=== PATIENT | male | born 1970 | race Caucasian/White ===

== ENCOUNTER → 2016-06-02 | Outpatient (CLI) | payer OTHER ==
[~2016-06-02] MED LIST: ALBU18002 INH; ASPI81TA28 PO; ASPI81TA57 PO; ATOR-26 PO; CITA20TA9 PO; FURO-85 PO; ISOS30TA35 PO; ISOS60TA25 PO; LISI10TA PO; METO50TA17 PO; NTRGSL/4 UT; OXYC-57 PO; PLV75 PO
[2016-06-02 13:06] LABS: HEMATOCRIT 41.9 % (42-52); MEAN CELL VOLUME 87.5 fL (80-100); MEAN CORPUSCULAR HEMOGLOBIN 30.7 pg (25-34); MEAN CORPUSCULAR HGB CONC 35.1 g/dl (32-36); MEAN PLATELET VOLUME 11.6 fL (7.4-10.4); PLATELET COUNT 200 K/uL (130-400); RED BLOOD COUNT 4.79 M/uL (4.7-6.1); WHITE BLOOD COUNT 9.99 K/uL (4.8-10.8)
[2016-06-02 13:20] LABS: PROTHROMBIN TIME (PATIENT) 10.6 SECONDS (9.0-12.0)
[2016-06-02 13:57] LABS: BLOOD UREA NITROGEN 16 mg/dl (7-18); BUN/CREATININE RATIO 16.6 (10-20); CALCIUM 8.8 mg/dl (8.5-10.1); CARBON DIOXIDE 25 mmol/L (21-32); CHLORIDE 106 mmol/L (98-107); CREATININE 0.94 mg/dl (0.60-1.40); GLUCOSE 104 mg/dl (70-99); POTASSIUM 3.5 mmol/L (3.5-5.1); SODIUM 142 mmol/L (136-145)
== END | disposition home or self-care (01) ==
LOC: C.LAB1850 11:43
PROVIDERS: ATTEND Internal Medicine Cardiovascular Disease
DX: R07.9 Chest pain, unspecified (principal); I10 Essential (primary) hypertension; I25.10 Atherosclerotic heart disease of native coronary artery without angina pectoris

== ENCOUNTER 2016-06-07 04:44 | Observation (INO) | payer OTHER ==
[~2016-06-07] VITALS: Ht 172.7 cm; Wt 98.9 kg
[~2016-06-07 04:44] MED LIST changes: -ASPI81TA28 PO; -ISOS60TA25 PO
[2016-06-07] MEDS ORDERED: SODIUM CHLORIDE 0.9% 500ML 500 ML IV STA (05:01)
[2016-06-07] MEDS ORDERED: ONDANSETRON INJ 2 MG/ML 2 ML VIAL IV STA (05:01)
[2016-06-07] MEDS ORDERED: MoRPHine SULFATE 4 MG/ML 1 ML CARP\\VIAL IV STA (05:01)
[2016-06-07] MEDS ORDERED: OPTIRAY 320 IV PRN (05:15)
[2016-06-07 05:18] LABS: BASO % 0.6 %; BASO ABS # 0.05 K/uL (0-0.2); COMPLETE YES; EOS % 3.3 %; HEMATOCRIT 43.3 % (42-52); IG% 0.1 %; LYMPH % 45.4 %; LYMPH ABS # 3.97 K/uL (1.2-3.4); MEAN CELL VOLUME 88.4 fL (80-100); MEAN CORPUSCULAR HEMOGLOBIN 31.2 pg (25-34); MEAN CORPUSCULAR HGB CONC 35.3 g/dl (32-36); MEAN PLATELET VOLUME 11.7 fL (7.4-10.4); MONO % 10.7 %; NEUT % 39.9 %; PLATELET COUNT 173 K/uL (130-400); WHITE BLOOD COUNT 8.75 K/uL (4.8-10.8)
[2016-06-07 05:30] LABS: INR 0.9 (0.9-1.1); PROTHROMBIN TIME (PATIENT) 9.8 SECONDS (9.0-12.0)
[2016-06-07 05:49] LABS: BUN/CREATININE RATIO 14.7 (10-20); CALCIUM 8.8 mg/dl (8.5-10.1); CREATININE 1.2 mg/dl (0.60-1.40); POTASSIUM 3.6 mmol/L (3.5-5.1)
[2016-06-07 05:54] LABS: CKMB/CK RATIO 2.5 (0-3.0)
[2016-06-07] MEDS ORDERED: LORAZEPAM 2 MG/ML 1 ML VIAL IV STA (05:54)
[2016-06-07] MEDS ORDERED: ASPI81TA28 PO (06:10)
[2016-06-07] MEDS ORDERED: ISOS60TA25 PO (06:12)
--- NOTE | 2016-06-07 06:27 | EMERGENCY ROOM VISIT NOTE ---
History First contact with patient: 04:50 Chief Complaint: CARDIAC ASSESSMENT Stated Complaint: CHEST TIGHTNESS Nursing Triage Summary: arrived via amb with als pt has hx of mi had recent stress testand is to have a cardiac cath on here at [facility]. pt awoke 2 hrs ago ith midsternal cp. History of Present Illness The patient is a 46 year old male who presents to the Emergency Room with complaints of mid to left-sided chest pain that radiates to his back with mild source of breath for the past 2 hours. Patient had an abnormal stress test last week by Dr. Da Silva and has a scheduled cardiac catheterization tomorrow on the . He does had no heart disease. Here he has a stent from 2013 from [facility]. Patient does have high blood pressure and cholesterol. He does not smoke. No diabetes. Patient took nitroglycerin glycerin and aspirin with no improvement of symptoms. Morphine from EMS did help out. Patient currently complains of minimal pain, 3 out of 10. Nothing makes it better or worse. He had shoulder surgery 2 months ago. Patient denies numbness, tingling, diaphoresis, abdominal pain, leg pain or swelling. No history of DVT or PE. Review of Systems See HPI for pertinent positives & negatives. A total of 10 systems reviewed and were otherwise negative. Past Medical/Surgical History Medical Problems: (1) Asthma (2) HTN (hypertension) (3) Hx of coronary artery disease (4) Myocardial infarction (5) NSTEMI (non-ST elevated myocardial infarction) (6) paralyzed left ankle (7) PUD (peptic ulcer disease) (8) Tobacco abuse Surgical Problems: (1) H/O cardiac catheterization (2) H/O placement of stent in anterior descending branch of left coronary artery (3) S/P appendectomy (4) S/P surgical manipulation of ankle joint (5) S/P tonsillectomy Family History Cancer Gallbladder disease Heart disease Hypertension Social History Smoking Status: Never Smoker Smokeless Tobacco Use: No Drug Use: none Marital Status: Housing Status: lives with family Occupation Status: employed Current/Historical Medications Scheduled Aspirin (Aspirin Ec), 81 MG PO DAILY Atorvastatin (Lipitor), 80 MG PO QPM Citalopram Hydrobromide (Celexa), 20 MG PO QAM Clopidogrel Bisulfate (Clopidogrel), 75 MG PO QAM Furosemide (Lasix), 20 MG PO DAILY Isosorbide Mononitrate Ext Rel (Imdur Ext Rel), 60 MG PO QAM Lisinopril (Prinivil), 10 MG PO QAM Metoprolol Tartrate (Metoprolol Tartrate), 50 MG PO BID Scheduled PRN Albuterol Sulfate (Proair Respiclick), 2 PUFFS INH QID PRN for SOB/Wheezing Nitroglycerin (Nitrostat), 0.4 MG UT UD PRN for Chest Pain Oxycodone/Acetaminophen 5MG/325MG (Percocet 5MG/325MG), 1-2 TABLETS PO Q6 PRN for Pain Allergies Coded Allergies: No Known Allergies (Unverified , 06/07/16) Physical Exam Vital Signs Date Time Temp Pulse Resp B/P Pulse Ox O2 Delivery O2 Flow Rate FiO2 06/07/16 06:29 71 20 113/60 98 Nasal Cannula 2.0 06/07/16 06:00 78 18 151/99 97 Nasal Cannula 2.0 06/07/16 05:21 70 18 122/77 97 Nasal Cannula 2.0 06/07/16 05:01 100 Nasal Cannula 2.0 06/07/16 04:57 87 06/07/16 04:53 100 Room Air 06/07/16 04:53 37.4 89 18 125/79 100 Room Air 06/07/16 04:53 100 Room Air Physical Exam VITALS: Vitals are noted on the nurse's note and reviewed by myself. Vital signs stable. GENERAL: Pleasant male mildly anxious-appearing, in no acute distress, nondiaphoretic, well-developed well-nourished. SKIN: The skin was without rashes, erythema, edema, or bruising. There is no tenting of the skin. Capillary reflex less than 2 seconds. HEAD: Normocephalic atraumatic. EARS: External auditory canals clear, tympanic membranes pearly olson without erythema or effusion bilaterally. EYES: Pupils equal round and reactive to light and accommodation. Conjunctivae without injection, sclerae without icterus. Extraocular movements intact. NOSE: Patent, turbinates without inflammation or discharge. MOUTH: Mucous membranes moist. Pharynx without erythema or exudate. Uvula midline. Airway patent. Tongue does not deviate. NECK: Supple without nuchal rigidity. No lymphadenopathy. No thyromegaly. Cervical spine is nontender. No JVD. HEART: Regular rate and rhythm without murmurs gallops or rubs. Chest nontender to palpation LUNGS: Clear to auscultation bilaterally without wheezes, rales or rhonchi. No dullness to percussion. No retractions or accessory muscle use. ABDOMEN: Positive bowel sounds x 4. Normal tympanic percussion. Soft, protuberant, obese, nontender, without masses or organomegaly. Mac sign negative. No guarding or rebound tenderness. MUSCULOSKELETAL: No muscle atrophy, erythema, or edema noted. NEURO: Patient was alert and oriented to person place and time. Normal sensation to light and sharp touch. No focal neurological deficits. Medical Decision & Procedures Laboratory Results 06/07/16 04:10 Red Blood Count 4.90, Mean Corpuscular Volume 88.4, Mean Corpuscular Hemoglobin 31.2, Mean Corpuscular Hemoglobin Concent 35.3, Mean Platelet Volume 11.7, Neutrophils (%) (Auto) 39.9, Lymphocytes (%) (Auto) 45.4, Monocytes (%) (Auto) 10.7, Eosinophils (%) (Auto) 3.3, Basophils (%) (Auto) 0.6, Neutrophils # (Auto ) 3.49, Lymphocytes # (Auto) 3.97, Monocytes # (Auto) 0.94, Eosinophils # (Auto ) 0.29, Basophils # (Auto) 0.05 06/07/16 04:10 Test 06/07/16 04:10 06/07/16 05:09 White Blood Count 8.75 K/uL (4.8-10.8) Red Blood Count 4.90 M/uL (4.7-6.1) Hemoglobin 15.3 g/dL (14.0-18.0) Hematocrit 43.3 % (42-52) Mean Corpuscular Volume 88.4 fL (80-100) Mean Corpuscular Hemoglobin 31.2 pg (25-34) Mean Corpuscular Hemoglobin Concent 35.3 g/dl (32-36) Platelet Count 173 K/uL (130-400) Mean Platelet Volume 11.7 fL (7.4-10.4) Neutrophils (%) (Auto) 39.9 % Lymphocytes (%) (Auto) 45.4 % Monocytes (%) (Auto) 10.7 % Eosinophils (%) (Auto) 3.3 % Basophils (%) (Auto) 0.6 % Neutrophils # (Auto) 3.49 K/uL (1.4-6.5) Lymphocytes # (Auto) 3.97 K/uL (1.2-3.4) Monocytes # (Auto) 0.94 K/uL (0.11-0.59) Eosinophils # (Auto) 0.29 K/uL (0-0.5) Basophils # (Auto) 0.05 K/uL (0-0.2) RDW Standard Deviation 41.6 fL (36.4-46.3) RDW Coefficient of Variation 13.0 % (11.5-14.5) Immature Granulocyte % (Auto) 0.1 % Immature Granulocyte # (Auto) 0.01 K/uL (0.00-0.02) Prothrombin Time 9.8 SECONDS (9.0-12.0) Prothromb Time International Ratio 0.9 (0.9-1.1) Activated Partial Thromboplast Time 25.4 SECONDS (21.0-31.0) Partial Thromboplastin Ratio 1.0 Anion Gap 8.0 mmol/L (3-11) Est Creatinine Clear Calc Drug Dose 93.5 ml/min Estimated GFR () 83.0 Estimated GFR (Non- 71.6 BUN/Creatinine Ratio 14.7 (10-20) Calcium Level 8.8 mg/dl (8.5-10.1) Total Bilirubin 0.8 mg/dl (0.2-1) Direct Bilirubin 0.1 mg/dl (0-0.2) Aspartate Amino Transf (AST/SGOT) 19 U/L (15-37) Alanine Aminotransferase (ALT/SGPT) 55 U/L (12-78) Alkaline Phosphatase 99 U/L (45-117) Total Creatine Kinase 102 U/L (39-308) Creatine Kinase MB 2.6 ng/ml (0.5-3.6) Creatine Kinase MB Ratio 2.5 (0-3.0) Total Protein 7.1 gm/dl (6.4-8.2) Albumin 3.8 gm/dl (3.4-5.0) Lipase 109 U/L (73-393) Bedside Troponin I 0.000 ng/ml (0-0.045) Medications Administered Medications (Trade) Dose Ordered Sig/Michael Route Start Time Stop Time Status Last Admin Dose Admin Morphine Sulfate (MoRPHine SULFATE INJ) 4 mg NOW STAT IV 06/07/16 05:01 06/07/16 05:02 DC 06/07/16 05:16 4 MG Ondansetron HCl 4 mg 4 mg NOW STAT IV 06/07/16 05:01 06/07/16 05:03 DC 06/07/16 05:16 4 MG Sodium Chloride (Nss 500ml) 500 ml @ 999 mls/hr Q31M STAT IV 06/07/16 05:01 06/07/16 05:31 DC 06/07/16 05:16 999 MLS/HR Lorazepam (Ativan Inj) 1 mg NOW STAT IV 06/07/16 05:54 06/07/16 05:55 DC 06/07/16 05:57 1 MG ED Course Prior records/ancillary studies reviewed. Triage Nursing notes reviewed. Additional history obtained from family and EMS. The patient's history was concerning for chest pain. Differential diagnosis: Etiologies such as cardiac ischemia, aortic dissection, pulmonary embolism, pneumonia, pneumothorax, musculoskeletal, infections, pericarditis, myocarditis , esophageal rupture, gastrointestinal, as well as others were entertained. Physical examination: As above. ER treatment provided: Morphine, Zofran. Patient was are given aspirin and nitroglycerin by EMS On reassessment the patient felt better. Diagnostic interpretation by me: The electrocardiogram was negative for pathologic change. Normal sinus, normal intervals, no acute ST-T wave changes. Impression normal sinus rhythm interpreted by myself The labs revealed negative troponin. Mild hyperglycemia without DKA Imaging studies: Chest x-ray with no acute consolidation or pneumothorax per my interpretation CTA CHEST: No evidence of pulmonary embolus. No thoracic aortic dissection or aneurysm. Dependent atelectasis. No pleural effusion or pneumothorax. Coronary artery calcifications. Trace pericardial effusion. No acute osseous abnormality. The visualized upper abdomen is unremarkable. Radiologist: Mick Coley MD Consultation: A consultation was placed with the [facility] hospitalist, Dr Boudreaux. The case was discussed and diagnostics were reviewed. The patient was evaluated in the ER for further treatment. Exam and history seem consistent with chest pain possibly cardiac in etiology. Patient had an abnormal stress test last week. He will be evaluated by medicine for possible admission. He had a normal EKG. Unremarkable workup as above. By the evaluation outlined above emergent etiologies such as aortic dissection , pulmonary embolism, pneumonia, pneumothorax, infections, pericarditis, myocarditis, gastrointestinal, as well as others were deemed relatively unlikely. The pt informed about the findings as listed above. All questions were answered and pleased with the treatment. Case reviewed with my attending. Medical Decision As above Impression Primary Impression: Precordial chest pain Departure Information Dispostion Being Evaluated By Hospitalist Condition GOOD Referrals Latisha Garcia MD (PCP) Patient Instructions My [facility]
--- NOTE | 2016-06-07 07:57 | DIAGNOSTIC IMAGING REPORT ---
CT ANGIOGRAM OF THE CHEST CLINICAL HISTORY: Atypical chest pain. Dyspnea. COMPARISON STUDY: Chest x-ray dated 06/07/2016. Chest CT dated 08/18/2009. TECHNIQUE: Following the IV administration of 92 cc of Optiray 320, CT angiogram of the chest was performed from the upper abdomen to the thoracic inlet utilizing the pulmonary embolus protocol. Images are reviewed in the axial, sagittal, and coronal planes. 3-D MIPS images are created and assessed. IV contrast was administered without complication. CT DOSE: 724.94 mGy.cm FINDINGS: Thyroid: Imaged portions of the thyroid gland are normal in size and attenuation. Thoracic aorta: The thoracic aorta is normal in caliber and demonstrates standard 3-vessel arch anatomy. No dissection is seen. Pulmonary vasculature: The pulmonary trunk is normal in caliber. There are no filling defects identified in main, lobar, or segmental pulmonary branches to suggest pulmonary embolus. Heart: The heart is top normal in size and there is trace pericardial fluid. The coronary arteries are densely calcified. Lungs and pleural spaces: Evaluation of the lung parenchyma is modestly degraded by expiratory motion artifact. There is no airspace consolidation or pleural effusion. Dependent atelectasis is observed. A calcified granuloma is present in the right lower lobe. A 3 mm perifissural nodule in the right lower lobe seen on image #155 is unchanged from 2010 and of doubtful significance. No concerning pulmonary lesion is seen. The trachea and central airways are clear. Mediastinum: There is no mediastinal lymphadenopathy. Raquel: Clear. Axillae: There is no axillary lymphadenopathy. Upper abdomen: There is evidence of hepatic steatosis. A tiny hiatal hernia is identified. Partially visualized upper abdominal viscera is otherwise within normal limits. Skeletal structures: No lytic or blastic bony lesions are seen. IMPRESSION: 1. There is no evidence of pulmonary embolus in the main, lobar, or segmental pulmonary arteries. 2. The lungs are clear. 3. The heart is top normal in size. The coronary arteries are densely calcified, greater than expected for age. Consider nonemergent cardiology follow-up. Electronically signed by: Ethan Gentile M.D. 06/07/2016 7:55 AM Dictated Date/Time: 06/07/2016 7:51 AM
--- NOTE | 2016-06-07 08:02 | DIAGNOSTIC IMAGING REPORT ---
SINGLE VIEW CHEST CLINICAL HISTORY: Atypical chest pain. Dyspnea. FINDINGS: An AP, portable, upright chest radiograph is compared to study dated 03/27/2016 and correlated with chest CT dated 08/18/2009. The examination is degraded by portable technique, apical and out of positioning, and patient rotation. The heart is top normal for projection. The mediastinal contour is within normal limits. There is mild elevation of the right hemidiaphragm. The lungs and pleural spaces are clear. No pneumothorax is seen. The bony thorax is grossly intact. IMPRESSION: No active disease in the chest. Electronically signed by: Ethan Gentile M.D. 06/07/2016 8:01 AM Dictated Date/Time: 06/07/2016 8:00 AM
--- NOTE | 2016-06-07 08:11 | History and Physical ---
History & Physical Date & Time of Service: Jun 07, 2016 at 08:04 Chief Complaint: Chest Tightness Primary Care Physician: Latisha Garcia MD History of Present Illness Mr. Zhao is a 46 yo M with pmh CAD, OR in 2013 s/p CHOLO to LAD (last cath in 2015, no intervention done) HTN, obesity, former smoker, dyslipidemia who presents with chest pain. He reports chest pain woke him up from sleep, 8/10, sometimes sharp, sometimes dull, radiates to the back and to his throat somewhat reminiscent to his prior OR. Episode was associated with lightheadedness, and SOB, lasted for a few hours. He took nitro without improvement and prompted the visit to the ED. He was given nitro and morphine en route to the ED which partially relieved the chest pain and resolved completely after ativan was given. Patient follows with Dr. Da Silva and recently had stress test which was positive. He was scheduled for a cath tomorrow 06/08. He is currently chest pain free, sob is improved, no abd pain, no urinary symptoms. He does have left shoulder pain which is chronic. Past Medical/Surgical History Medical Problems: (1) Asthma Status: Chronic (2) HTN (hypertension) Status: Chronic (3) Hx of coronary artery disease Status: Chronic (4) NSTEMI (non-ST elevated myocardial infarction) Permanent Comment: S/P LAD stent 2012 Status: Chronic (5) paralyzed left ankle Status: Chronic (6) PUD (peptic ulcer disease) Status: Chronic (7) Tobacco abuse Status: Chronic Surgical Problems: (1) H/O cardiac catheterization Permanent Comment: 90% prox LAD s/p stent; normal LV function Status: Chronic (2) S/P appendectomy Status: Chronic (3) S/P surgical manipulation of ankle joint Status: Chronic (4) S/P tonsillectomy Status: Chronic Hyperlipidemia Obesity Former Smoker--quit 3 years ago Recent Left shoulder surgery Family History Cancer Gallbladder disease Heart disease Hypertension Social History Smoking Status: Former Smoker Smokeless Tobacco Use: No Alcohol Use: occasionally Drug Use: none Marital Status: Occupational Status: employed Allergies Coded Allergies: No Known Allergies (Unverified , 06/07/16) Home Medications Scheduled Aspirin (Aspirin Ec), 81 MG PO DAILY Atorvastatin (Lipitor), 80 MG PO QPM Clopidogrel Bisulfate (Clopidogrel), 75 MG PO QAM Furosemide (Lasix), 20 MG PO DAILY Isosorbide Mononitrate Ext Rel (Imdur Ext Rel), 60 MG PO QAM Lisinopril (Prinivil), 10 MG PO QAM Metoprolol Tartrate (Metoprolol Tartrate), 50 MG PO BID Scheduled PRN Albuterol Sulfate (Proair Respiclick), 2 PUFFS INH QID PRN for SOB/Wheezing Nitroglycerin (Nitrostat), 0.4 MG UT UD PRN for Chest Pain Oxycodone/Acetaminophen 5MG/325MG (Percocet 5MG/325MG), 1-2 TABLETS PO Q6 PRN for Pain Review of Systems ROS as per HPI. Rest of ROs negative. Physical Exam Vital Signs Date Time Temp Pulse Resp B/P Pulse Ox O2 Delivery O2 Flow Rate FiO2 06/07/16 07:22 61 06/07/16 06:29 71 20 113/60 98 Nasal Cannula 2.0 06/07/16 06:00 78 18 151/99 97 Nasal Cannula 2.0 06/07/16 05:21 70 18 122/77 97 Nasal Cannula 2.0 06/07/16 05:01 100 Nasal Cannula 2.0 06/07/16 04:57 87 06/07/16 04:53 100 Room Air 06/07/16 04:53 37.4 89 18 125/79 100 Room Air 06/07/16 04:53 100 Room Air NAD, AOx3, coherent and fluent speech EOMI, PERRL, anicteric sclerae S1 S2 RRR, no murmurs/r/g CTAB no w/r/r Abd soft,nt/nd +BS obese, no organomegaly palp, no suprapubic ten, no cva ten no LE edema, left leg scars well-healed CN 2-12 grossly intact without facial drooping and other than chronic left ankle immobility, no other focal deficits Diagnostics Laboratory Results Results Past 24 Hours Test 06/07/16 04:10 06/07/16 05:09 Range/Units White Blood Count 8.75 4.8-10.8 K/uL Red Blood Count 4.90 4.7-6.1 M/uL Hemoglobin 15.3 14.0-18.0 g/dL Hematocrit 43.3 42-52 % Mean Corpuscular Volume 88.4 80-100 fL Mean Corpuscular Hemoglobin 31.2 25-34 pg Mean Corpuscular Hemoglobin Concent 35.3 32-36 g/dl Platelet Count 173 130-400 K/uL Mean Platelet Volume 11.7 7.4-10.4 fL Neutrophils (%) (Auto) 39.9 % Lymphocytes (%) (Auto) 45.4 % Monocytes (%) (Auto) 10.7 % Eosinophils (%) (Auto) 3.3 % Basophils (%) (Auto) 0.6 % Neutrophils # (Auto) 3.49 1.4-6.5 K/uL Lymphocytes # (Auto) 3.97 1.2-3.4 K/uL Monocytes # (Auto) 0.94 0.11-0.59 K/uL Eosinophils # (Auto) 0.29 0-0.5 K/uL Basophils # (Auto) 0.05 0-0.2 K/uL RDW Standard Deviation 41.6 36.4-46.3 fL RDW Coefficient of Variation 13.0 11.5-14.5 % Immature Granulocyte % (Auto) 0.1 % Immature Granulocyte # (Auto) 0.01 0.00-0.02 K/uL Prothrombin Time 9.8 9.0-12.0 SECONDS Prothromb Time International Ratio 0.9 0.9-1.1 Activated Partial Thromboplast Time 25.4 21.0-31.0 SECONDS Partial Thromboplastin Ratio 1.0 Sodium Level 142 136-145 mmol/L Potassium Level 3.6 3.5-5.1 mmol/L Chloride Level 103 98-107 mmol/L Carbon Dioxide Level 31 21-32 mmol/L Anion Gap 8.0 3-11 mmol/L Blood Urea Nitrogen 18 7-18 mg/dl Creatinine 1.20 0.60-1.40 mg/dl Est Creatinine Clear Calc Drug Dose 93.5 ml/min Estimated GFR () 83.0 Estimated GFR (Non- 71.6 BUN/Creatinine Ratio 14.7 10-20 Random Glucose 112 70-99 mg/dl Calcium Level 8.8 8.5-10.1 mg/dl Total Bilirubin 0.8 0.2-1 mg/dl Direct Bilirubin 0.1 0-0.2 mg/dl Aspartate Amino Transf (AST/SGOT) 19 15-37 U/L Alanine Aminotransferase (ALT/SGPT) 55 12-78 U/L Alkaline Phosphatase 99 45-117 U/L Total Creatine Kinase 102 39-308 U/L Creatine Kinase MB 2.6 0.5-3.6 ng/ml Creatine Kinase MB Ratio 2.5 0-3.0 Total Protein 7.1 6.4-8.2 gm/dl Albumin 3.8 3.4-5.0 gm/dl Lipase 109 73-393 U/L Bedside Troponin I 0.000 0-0.045 ng/ml Diagnostic Radiology Previous 2de Interpretation Summary * Name: RADHIKA ZHAO Study Date: 08/14/2015 09:27 AM BP: 133/87 mmHg Patient Location: C.2T\S\S240\S\2 HR: 57 : 1970 (M/d/yyyy ) Gender: Male Height: 68 in Age: 45 yrs Ethnicity: [place] Weight: 229 lb Ordering Physician: Alexis RomeroReferring Physician: Self, Referred Performed By: Alexis TaylorAccession# [id number] Reason For Study: CheST PainBSA: 2.2 m2 * The study was diagnostic quality. The left ventricle is normal in size. There is mild concentric left ventricular hypertrophy. The left ventricular wall motion is normal. Left ventricular systolic function is normal. Ejection Fraction = 65-70%. Previous Cath 08/16/15 Summary of Findings Right dominant coronary anatomy LM mild calcification, trifurcates to type 3 LAD, large ramus intermedius, moderately large circumflex LAD Type 3, 50 prior to stent in proximal vessel mild to moderate irregularities distal vessel with thin apical segment Flow wire 0.85 Ramus Intermedius Large vessel reaching to the apex, 25% at origin Circumflex consists of large bifurcating OM mild irregularities RCA Dominant with large acute marginal branch, modest PDA and large single PV branch mild to moderate luminal irregularities only LV Normal function EF > 65 % without wall motion abnormality LVEDP 12 TODAY SINGLE VIEW CHEST CLINICAL HISTORY: Atypical chest pain. Dyspnea. FINDINGS: An AP, portable, upright chest radiograph is compared to study dated 03/27/2016 and correlated with chest CT dated 08/18/2009. The examination is degraded by portable technique, apical and out of positioning, and patient rotation. The heart is top normal for projection. The mediastinal contour is within normal limits. There is mild elevation of the right hemidiaphragm. The lungs and pleural spaces are clear. No pneumothorax is seen. The bony thorax is grossly intact. IMPRESSION: No active disease in the chest. SINGLE VIEW CHEST CLINICAL HISTORY: Atypical chest pain. Dyspnea. FINDINGS: An AP, portable, upright chest radiograph is compared to study dated 03/27/2016 and correlated with chest CT dated 08/18/2009. The examination is degraded by portable technique, apical and out of positioning, and patient rotation. The heart is top normal for projection. The mediastinal contour is within normal limits. There is mild elevation of the right hemidiaphragm. The lungs and pleural spaces are clear. No pneumothorax is seen. The bony thorax is grossly intact. IMPRESSION: No active disease in the chest. CT ANGIOGRAM OF THE CHEST CLINICAL HISTORY: Atypical chest pain. Dyspnea. COMPARISON STUDY: Chest x-ray dated 06/07/2016. Chest CT dated 08/18/2009. TECHNIQUE: Following the IV administration of 92 cc of Optiray 320, CT angiogram of the chest was performed from the upper abdomen to the thoracic inlet utilizing the pulmonary embolus protocol. Images are reviewed in the axial, sagittal, and coronal planes. 3-D MIPS images are created and assessed. IV contrast was administered without complication. CT DOSE: 724.94 mGy.cm FINDINGS: Thyroid: Imaged portions of the thyroid gland are normal in size and attenuation. Thoracic aorta: The thoracic aorta is normal in caliber and demonstrates standard 3-vessel arch anatomy. No dissection is seen. Pulmonary vasculature: The pulmonary trunk is normal in caliber. There are no filling defects identified in main, lobar, or segmental pulmonary branches to suggest pulmonary embolus. Heart: The heart is top normal in size and there is trace pericardial fluid. The coronary arteries are densely calcified. Lungs and pleural spaces: Evaluation of the lung parenchyma is modestly degraded by expiratory motion artifact. There is no airspace consolidation or pleural effusion. Dependent atelectasis is observed. A calcified granuloma is present in the right lower lobe. A 3 mm perifissural nodule in the right lower lobe seen on image #155 is unchanged from 2010 and of doubtful significance. No concerning pulmonary lesion is seen. The trachea and central airways are clear. Mediastinum: There is no mediastinal lymphadenopathy. Raquel: Clear. Axillae: There is no axillary lymphadenopathy. Upper abdomen: There is evidence of hepatic steatosis. A tiny hiatal hernia is identified. Partially visualized upper abdominal viscera is otherwise within normal limits. Skeletal structures: No lytic or blastic bony lesions are seen. IMPRESSION: 1. There is no evidence of pulmonary embolus in the main, lobar, or segmental pulmonary arteries. 2. The lungs are clear. 3. The heart is top normal in size. The coronary arteries are densely calcified, greater than expected for age. other other (T wave inversion in III, present on prior EKGs. NSR 90, no JAYY ) Impression Assessment and Plan 1. Chest pain - h/o CAD s/p stents - discussed with Dr. Da Silva - serial CE - tele monitoring - will be for cath in the AM, npo at midnight 2. CAD s/p stents - cont asa, statin, plavix - cont imdur, lisinopril, metoprolol 3. HTN - BP acceptable - cont metoprolol and lisinopril 4. Left shoulder pain - cont percocet prn
[2016-06-07 09:15] VITALS: BP 114/70; PULSE 72; TEMP 36.8; O2SAT 99; Ht 172.7 cm; Wt 98.9 kg
[2016-06-07] MEDS ORDERED: POLYETHYLENE (MIRALAX) 17 GM PACK PO PRN (09:15)
[2016-06-07] MEDS ORDERED: OXYCODONE/ACETAMINOPHEN 5-325 TAB PO PRN (09:15)
[2016-06-07] MEDS ORDERED: ALBUTEROL HFA 8 GM INHALER INH PRN (09:15)
[2016-06-07] MEDS ORDERED: ONDANSETRON INJ 2 MG/ML 2 ML VIAL IV PRN (09:15)
[2016-06-07] MEDS ORDERED: MAGNESIUM HYDROXIDE SUSP 30 ML UDC PO PRN (09:15)
[2016-06-07] MEDS ORDERED: NITROGLYCERIN 0.4 MG SL PER TAB CHARGE SL PRN (09:15)
[2016-06-07 11:20] VITALS: O2SAT 100
[2016-06-07] MEDS ORDERED: ENOXAPARIN 30 MG/0.3 ML SYR SC SCH (12:00)
[2016-06-07] MEDS: ISOSORBIDE MONONITRATE 60 MG TABCR PO SCH (13:05)
[2016-06-07] MEDS: CLOPIDOGREL BISULFATE 75 MG TAB PO SCH (13:05)
[2016-06-07] MEDS: METOPROLOL TARTRATE 50 MG TAB PO SCH ×2 (13:06→20:54)
[2016-06-07] MEDS: LISINOPRIL 10 MG TAB PO SCH (13:08)
[2016-06-07] MEDS ORDERED: IV FLUIDS COMPLETED PRN (13:45)
[2016-06-07 15:08] VITALS: BP 158/93; PULSE 69; TEMP 36.6; O2SAT 100
--- NOTE | 2016-06-07 18:11 | Cardiology Follow-Up ---
Subjective Date of Service: Jun 07, 2016. Pt evaluation today including: conversation w/ patient, conversation w/ family , physical exam, lab review, review of studies, review of inpatient medication list History of Present Illness This is a 46-year-old male with a history of known coronary artery disease and chest discomfort. He was scheduled for cardiac catheterization tomorrow morning but woke up at around 3 AM with chest discomfort. He rated this as 8 out of 10, called in a months and came into the emergency room. He feels that his chest discomfort lasted several hours before resolving with treatment in the emergency room. At the time my evaluation he is having no further discomfort and has no complaints. Social History Smoking Status: Former Smoker History of Alcohol Use: No Review of Systems Respiratory: No shortness of breath Cardiac: + see HPI, No chest pain Medications Cardiovascular: Item Value Date Time Aspirin 81 mg 06/08/16 0900 (Ecotrin Tab) DAILY/PO Clopidogrel 75 mg 06/08/16 0900 Bisulfate QAM/PO 06/07/16 1305 (plAVix TAB) Isosorbide 60 mg 06/08/16 0900 Mononitrate QAM/PO 06/07/16 1305 (Imdur Ext Rel Tab) Lisinopril 10 mg 06/08/16 0900 (Zestril Tab) QAM/PO 06/07/16 1308 Atorvastatin 80 mg 06/07/16 2100 Calcium QPM/PO (Lipitor Tab) Metoprolol 50 mg 06/07/16 2100 Tartrate BID/PO 06/07/16 1306 (Lopressor Tab) Enoxaparin Sodium 30 mg 06/07/16 1200 (Lovenox Inj) DAILY@1200/SC 06/07/16 1304 Objective Vital Signs Past 12 Hours Date Time Temp Pulse Resp B/P Pulse Ox O2 Delivery O2 Flow Rate FiO2 06/07/16 16:00 Nasal Cannula 2.0 06/07/16 15:08 36.6 69 18 158/93 100 Room Air 06/07/16 12:00 Nasal Cannula 2.0 06/07/16 11:20 60 18 138/100 100 06/07/16 10:52 60 06/07/16 10:04 65 20 115/78 99 Nasal Cannula 2.0 06/07/16 09:15 36.8 72 20 114/70 99 Room Air 2.5 06/07/16 08:10 62 16 105/66 98 Room Air 06/07/16 07:22 61 06/07/16 06:29 71 20 113/60 98 Nasal Cannula 2.0 Last Recorded Weight-Kilograms: 114.600 Physical Exam Constitutional: General Apperance: heathly-appearing Level of Distress: NAD Lungs: Auscultation: breath sounds normal Cardiovascular: Heart Auscultation: RRR Extremities: no edema Data Laboratory Results: Last 24 Hours Test 06/07/16 04:10 06/07/16 05:09 06/07/16 12:15 06/07/16 18:00 White Blood Count 8.75 K/uL Red Blood Count 4.90 M/uL Hemoglobin 15.3 g/dL Hematocrit 43.3 % Mean Corpuscular Volume 88.4 fL Mean Corpuscular Hemoglobin 31.2 pg Mean Corpuscular Hemoglobin Concent 35.3 g/dl Platelet Count 173 K/uL Mean Platelet Volume 11.7 fL Neutrophils (%) (Auto) 39.9 % Lymphocytes (%) (Auto) 45.4 % Monocytes (%) (Auto) 10.7 % Eosinophils (%) (Auto) 3.3 % Basophils (%) (Auto) 0.6 % Neutrophils # (Auto) 3.49 K/uL Lymphocytes # (Auto) 3.97 K/uL Monocytes # (Auto) 0.94 K/uL Eosinophils # (Auto) 0.29 K/uL Basophils # (Auto) 0.05 K/uL RDW Standard Deviation 41.6 fL RDW Coefficient of Variation 13.0 % Immature Granulocyte % (Auto) 0.1 % Immature Granulocyte # (Auto) 0.01 K/uL Prothrombin Time 9.8 SECONDS Prothromb Time International Ratio 0.9 Activated Partial Thromboplast Time 25.4 SECONDS Partial Thromboplastin Ratio 1.0 Sodium Level 142 mmol/L Potassium Level 3.6 mmol/L Chloride Level 103 mmol/L Carbon Dioxide Level 31 mmol/L Anion Gap 8.0 mmol/L Blood Urea Nitrogen 18 mg/dl Creatinine 1.20 mg/dl Est Creatinine Clear Calc Drug Dose 93.5 ml/min Estimated GFR () 83.0 Estimated GFR (Non- 71.6 BUN/Creatinine Ratio 14.7 Random Glucose 112 mg/dl Calcium Level 8.8 mg/dl Total Bilirubin 0.8 mg/dl Direct Bilirubin 0.1 mg/dl Aspartate Amino Transf (AST/SGOT) 19 U/L Alanine Aminotransferase (ALT/SGPT) 55 U/L Alkaline Phosphatase 99 U/L Total Creatine Kinase 102 U/L Creatine Kinase MB 2.6 ng/ml Creatine Kinase MB Ratio 2.5 Total Protein 7.1 gm/dl Albumin 3.8 gm/dl Lipase 109 U/L Bedside Troponin I 0.000 ng/ml Troponin I < 0.015 ng/ml EKG: An electrocardiogram done on arrival in the emergency room shows sinus rhythm at 90 bpm and is normal. No acute changes. Telemetry reviewed: Sinus rhythm, no significant arrhythmia Assessment and Plan #1. Chest discomfort: His chest discomfort felt like his prior discomfort which was attributed to coronary artery disease, however the duration with negative enzymes and a normal electrocardiogram with suggest that this may not be due to myocardial ischemia. He has further sets of enzymes to draw. #2. Coronary disease: He has known coronary disease and is scheduled for catheterization tomorrow. We will leave him on the schedule and plan for catheterization. Thank you for allowing me to participate in his care.
[2016-06-07] MEDS ORDERED: DC ALL ANTICOAGULANTS ONE (18:15)
[2016-06-07 20:00] VITALS: BP 130/87; PULSE 88; TEMP 36.8; O2SAT 100
[2016-06-07] MEDS: ATORVASTATIN 40 MG TAB PO SCH (20:54)
[2016-06-07 23:19] VITALS: BP 127/73; PULSE 74; TEMP 36.7; O2SAT 98
[2016-06-07 23:36] VITALS: BP 114/66; PULSE 69
[2016-06-07] MEDS ORDERED: MoRPHine SULFATE 2 MG/ML CARP IV STA (23:44)
[2016-06-07] MEDS ORDERED: NITROGLYCERIN OINT 2% 1GM PACKET EXT ONE (23:45)
[2016-06-08] VITALS (13 sets, daily range): BP systolic 108–139; BP diastolic 67–86; PULSE 65–85; TEMP 36.6–36.7; O2SAT 95–99
--- NOTE | 2016-06-08 03:36 | Progress Note ---
Progress Note I was paged at approximately 23:28. Patient was noted to be having mild chest pain. I give the following instructions prior to my arrival: Obtain vital signs and EKG, administer sublingual nitroglycerin I arrived at the to the bedside to assess the patient: SUBJECTIVE: Patient states he was having sternal heaviness 5/10 in severity, less severe than symptoms at initial presentation. He also notes he was minimally short of breath. He denies palpitations, lightheadedness, dizziness, diaphoresis, nausea or vomiting. Mattress and did provide moderately but incomplete. OBJECTIVE: - BP 114/66; heart rate 69, sats greater than 98% on room air - Gen. inspection: No acute distress, patient able to converse normally - Cardiac: S1 and S2 with no added sounds or murmurs, no lower extremity edema - Respiratory: Lungs clear to auscultation bilaterally - EKG was reviewed. Normal sinus rhythm, no ectopy or pauses, no acute ST or T- wave changes ASSESSMENT/PLAN: 46-year-old male admitted for chest pain, on a background of previous GA. His troponin to date have been negative and with his chest pain there were no EKG abnormalities - Sublingual nitroglycerin administered, prior to my arrival - Nitroglycerin paste application for 6 hours started - 2 mg morphine IV - Additional set of cardiac enzymes ordered with morning labs - Patient is scheduled for cardiac catheterization tomorrow. Will not start other treatments at this time. Will continue to monitor symptoms until the team arrives
[2016-06-08 06:24] LABS: BASO % 0.5 %; BASO ABS # 0.03 K/uL (0-0.2); COMPLETE YES; EOS % 5.3 %; HEMATOCRIT 39.8 % (42-52); IG% 0.2 %; LYMPH % 38.7 %; LYMPH ABS # 2.46 K/uL (1.2-3.4); MEAN CELL VOLUME 88.8 fL (80-100); MEAN CORPUSCULAR HEMOGLOBIN 30.8 pg (25-34); MEAN CORPUSCULAR HGB CONC 34.7 g/dl (32-36); MEAN PLATELET VOLUME 11.1 fL (7.4-10.4); MONO % 8.6 %; NEUT % 46.7 %; PLATELET COUNT 139 K/uL (130-400); RED BLOOD COUNT 4.48 M/uL (4.7-6.1); WHITE BLOOD COUNT 6.36 K/uL (4.8-10.8)
[2016-06-08 07:09] LABS: BLOOD UREA NITROGEN 17 mg/dl (7-18); BUN/CREATININE RATIO 17.3 (10-20); CALCIUM 8.5 mg/dl (8.5-10.1); CARBON DIOXIDE 26 mmol/L (21-32); CHLORIDE 106 mmol/L (98-107); CREATININE 0.99 mg/dl (0.60-1.40); GLUCOSE 110 mg/dl (70-99); POTASSIUM 4.6 mmol/L (3.5-5.1); SODIUM 142 mmol/L (136-145)
[2016-06-08 07:12] LABS: CKMB/CK RATIO 2.9 (0-3.0)
[2016-06-08] MEDS ORDERED: MIDAZOLAM HCL 1 MG/ML 2ML VIAL ONE ×4 (07:56→10:30)
[2016-06-08] MEDS ORDERED: NiCARDipine HCL INJ 2.5 MG/ML 10 ML AMP ONE (07:56)
[2016-06-08] MEDS ORDERED: HEPARIN SOD (PORCINE) 1000 UNIT/ML 10 ML VIAL ONE ×2 (07:56→09:43)
[2016-06-08] MEDS ORDERED: FENTANYL CITRATE INJ 50 MCG/1 ML 2 ML VIAL ONE ×2 (07:56→09:43)
[2016-06-08] MEDS ORDERED: NITROGLYCERIN/D5W 100MCG/ML 20ML SYR ONE (07:57)
--- NOTE | 2016-06-08 08:32 | Procedure Note ---
Pre-Mod Sedation Assessment General Date of Moderate Sedation: Jun 08, 2016. Vital Signs: Vital Signs Past 12 Hours Date Time Temp Pulse Resp B/P Pulse Ox O2 Delivery O2 Flow Rate FiO2 06/08/16 08:00 36.6 70 20 118/77 97 Room Air 06/08/16 04:00 Room Air 06/08/16 04:00 36.6 65 16 116/72 96 Room Air 06/08/16 00:01 Room Air 06/07/16 23:36 69 114/66 06/07/16 23:19 36.7 74 22 127/73 98 Room Air Review Cardiovascular: regular rate, rhythm Abdomen: non tender, soft Lungs: lungs clear Pre-Sedation Airway Assessment Oral Cavity: WNL Smoking Status: Former Smoker Procedure Planning Contraindications-for Mod Sed: None Yes Notes The planned sedation has been discussed with the patient and consent obtained. I have identified the patient, determined the appropriateness of sedation and have assessed the patient immediately prior to the procedure. All medicine(s) and interventions are by my order.
[2016-06-08] MEDS: CLOPIDOGREL BISULFATE 75 MG TAB PO SCH (09:00)
[2016-06-08] MEDS ORDERED: ADENOSINE IV SOLN 3 MG/ML 20 ML VIAL IV ONE (09:04)
--- NOTE | 2016-06-08 09:32 | Cardiac Catheterization ---
Procedure Note Procedure Date Jun 08, 2016. Pre-Procedure Diagnosis Angina, CAD AUC Score 7 Post-Procedure Diagnosis Moderate CAD, Normal Intracardiac Pressures Procedure(s) Performed Coronary Angiography, Left Heart Cath Sewing Machine Tester Dr. Da Silva Bingo Manager(s) [place] Estimated Blood Loss < 20 ml Medication(s) Fentanyl, Heparin, Nicardipine, Versed, Lidocaine 1% Summary of Findings Coronary angiography: 1. Left main coronary artery: The LMCA does not have any angiographic evidence of significant CAD. 2. Left anterior descending: The LAD is a large caliber vessel that extends to the apex. Proximal LAD, just prior to mid LAD stent, has 50% stenosis. Mid LAD stent appears patent. Small D1 and D2 out significant CAD. 3. Circumflex: The circumflex is a large caliber vessel that gives rise to a large OM1. No significant CAD within the circumflex system. 4. Ramus intermedius: The ramus is a large caliber vessel without significant CAD. 5. Right coronary artery: The RCA is large and dominant. Proximal RCA 30%. Distal RCA 30%. PDA and posterior lateral branch without significant CAD. Left heart catheterization: 1. No aortic stenosis. Peak to peak gradient across the aortic valve 0 mmHg. 2. Left ventriculography was not performed. 3. Mildly elevated LVEDP; 17 mmHg. Impression: 1. Moderate proximal LAD CAD. Mild RCA CAD. 2. Mildly elevated LVEDP. 3. No aortic stenosis. Plan: 1. Given patient's intermittent chest discomfort symptoms, Dr. Álvarez of interventional Cardiology was asked to evaluate the images. He plans on performing FFR of the proximal LAD. Hemodynamics Rest Ao: 129/81 Final Ao: 111/76 LV: 120/7 with LVEDP 17 Recommendations management recommendations (FFR of LAD) Specimens None Radiation Exposure (mGy) 1192 mGy. Fluoro time 2.5 min Contrast (mls) 40 ml Procedural Complication(s) None Disposition remained in manager cath lab for FFR ACC Data Cardiac Status Clinical evaluation leading to the procedure CAD Presntation: Stable angina Anginal Classification: CCS III Heart Failure: No Cardiogenic Shock w/in 24Hrs: No Cardiac Arrest w/in 24Hrs: No Imaging studies past 6 months: Yes Stress studies past 6 months: Yes Standard Exercise Stress Test: Yes - Indeterminant Stress Echocardiogram: Yes - Indeterminant Stress Testing w/SPECT MPI: No Cardiac CTA: No Coronary Anatomy Dominant: Right Left Main (% Stenosis): Normal LAD (% Stenosis): Proximal (50%) D1 (% Stenosis): Normal D2 (% Stenosis): Normal Circumflex (% Stenosis): Normal OM1 (% Stenosis): Normal RCA (% Stenosis): Proximal (30%), Distal (30%) R PDA (% Stenosis): Normal R PL1 (% Stenosis): Normal Ramus (% Stenosis): Normal Left Ventricular Angiography EF (%): n/a Diagnostic Physician's Name: Cecilio Da Silva MD Status: Elective Closure Device Percutaneous Entry Location: Radial Closure Device: Radial Band Recommendations: management recommendations (FFR of LAD)
--- NOTE | 2016-06-08 09:35 | Procedure Note ---
Post-Mod Sedation Assessment General Date of Moderate Sedation Jun 08, 2016. Vital Signs: Vital Signs Past 12 Hours Date Time Temp Pulse Resp B/P Pulse Ox O2 Delivery O2 Flow Rate FiO2 06/08/16 08:00 36.6 70 20 118/77 97 Room Air 06/08/16 04:00 Room Air 06/08/16 04:00 36.6 65 16 116/72 96 Room Air 06/08/16 00:01 Room Air 06/07/16 23:36 69 114/66 06/07/16 23:19 36.7 74 22 127/73 98 Room Air Review - Discharge Criteria Vital Signs Stable: Yes Alert/Oriented/Conversant: Yes Returned to Baseline Mental St: N/A Nausea Absent/Minimal: Yes Pain/Discomfort/Absent/Minimal: Yes Normal/Baseline Respirations: Yes Active Bleeding?: No
[2016-06-08] MEDS ORDERED: CLOPIDOGREL BISULFATE 300 MG TAB PO ONE (10:41)
[2016-06-08] MEDS ORDERED: ACETAMINOPHEN 325 MG TAB PO PRN (11:00)
[2016-06-08] MEDS ORDERED: SODIUM CHLORIDE 0.9% 1000ML 1,000 ML IV SCH ×2 (11:00)
[2016-06-08] MEDS: ASPIRIN 81 MG ECTAB PO SCH (11:26)
[2016-06-08] MEDS: LISINOPRIL 10 MG TAB PO SCH (11:26)
[2016-06-08] MEDS: METOPROLOL TARTRATE 50 MG TAB PO SCH ×2 (11:26→19:52)
--- NOTE | 2016-06-08 11:27 | Cardiac Catheterization ---
Procedure Note Procedure Date Jun 08, 2016. Pre-Procedure Diagnosis Angina AUC Score 7 Post-Procedure Diagnosis Severe CAD, Successful PCI Procedure(s) Performed Drug Eluting Stent, IVUS, Fractional Flow [place] Racecar Driver Dr. Álvarez Branch Services Manager(s) [place] Estimated Blood Loss 25 Medication(s) Fentanyl, Heparin, Versed, Adenosine Summary of Findings Indication: Progressive Angina For full details of patients coronary angiography please cardiac cath report from Dr. Da Silva from today. Briefly progressive chest pain for months in the setting of previously noted intermediate proximal LAD lesion (FFR 0.85 previously). Proximal LAD again noted to be intermediate. Decision was made to proceed with FFR FFR positive at 0.77 Proceeded with PCI Access: 6Fr Slender sheath right radial artery Catheters: EBU 3.5 Arterial Closure: TR Band PCI: Antithrombotic therapy: Heparin, Plavix Procedure: Following FFR, BMW passed through proximal LAD stenosis/prior stent into distal LAD IVUS of proximal/mid LAD showed patent stent with minimal in-stent restenosis, proximal to stent there was diffuse 70-80% noncalcified plaque extending just short of the ostium. Prowater wire placed into circumflex Lesion predilated with 2.5 x 15 compliant balloon 3.0 x 18 Xience CHOLO overlapped with prior stent Stent post-dilated with 3.5 NC balloon Post dilation IVUS run showed underexpanded stent most notably just before overlapped area. Stent post-dilated with 4.0 NC balloon. Post completion of procedure patient was chest pain free. Stent appeared well- expanded, with NICKOLAS 3 flow and no evidence of dissection. High small 1st diagonal was narrowed at the ostium ~90% with NICKOLAS 3 flow. Summary: 1. Flow limiting proximal LAD stenosis by FFR 2. Successful PCI of proximal LAD, IVUS guided, with overlapping 3.0 x 18 Xience CHOLO post-dilated to 4.0 Recommendations: Return to telemetry Reloaded with 300mg Plavix Continue ASA/Plavix for 1 year. Continue prior high-dose statin, beta-gail, ANNE MARIE and long-acting nitrate Cardiac Rehab Hemodynamics Rest Ao: 129/81/102 Final Ao: 139/90/111 LV: - Recommendations PCI without planned CABG Specimens None (5501) Contrast (mls) 210 Visi Fluids (cc crystalloids) 250 Drains None Anesthesia Moderate Procedural Complication(s) None Disposition PCU ACC Data Cardiac Status Clinical evaluation leading to the procedure CAD Presntation: Stable angina Anginal Classification: CCS III Heart Failure: No, NYHA Class: CCS I Cardiogenic Shock w/in 24Hrs: No Cardiac Arrest w/in 24Hrs: No Imaging studies past 6 months: Yes Stress studies past 6 months: No Standard Exercise Stress Test: No Stress Echocardiogram: No Stress Testing w/SPECT MPI: Yes - Indeterminant Cardiac CTA: No Coronary Anatomy Dominant: Right LAD (% Stenosis): Proximal (70-80%) Diagnostic Physician's Name: Russ Álvarez MD Status: Elective Closure Device Percutaneous Entry Location: Radial Closure Device: Radial Band Recommendations: PCI without planned CABG Lesion Segment Name: Proximal LAD Culprit Artery: Yes Stenosis Prior to Rx (%): 80 Chronic Total Occlusion: No IVUS: Yes FFR: Yes Ratio: less than or equal to 0.75% Pre-Procedure NICKOLAS Flow: 3 Previously Treated Lesion: No Lesion Complexity: Non-High/Non-C Lesion Length (mm): 15 Thrombus Present: No Bifurcation Lesion: No Guidewire Across Lesion: Yes Guidewire: Stenosis Post-Procedure (%): 0 Post-Procedure NICKOLAS Flow: 3 Device(s) Deployed: Yes Type of Device(s): Xience 3.0 x 18 Intraprocedure Events Significant Dissection: No Perforation: No
--- NOTE | 2016-06-08 16:47 | Progress Note ---
Subjective Date of Service: Jun 08, 2016. Subjective Pt evaluation today including: conversation w/ patient, conversation w/ family Pt is doing well s/p cath. No recurrence of chest pain. Ate without issue. Pt denies fever, SOB, abd pain, n/v/c/d, LE pain or swelling. ROS as noted above, otherwise neg. Problem List Medical Problems: (1) Hx of coronary artery disease Status: Chronic (2) Precordial chest pain Status: Acute (3) Substernal chest pain Status: Acute Objective Vital Signs Date Time Temp Pulse Resp B/P Pulse Ox O2 Delivery O2 Flow Rate FiO2 06/08/16 15:38 36.6 67 20 139/85 99 Room Air 06/08/16 15:30 Room Air 06/08/16 13:48 78 126/75 06/08/16 12:45 71 108/69 06/08/16 12:15 78 06/08/16 12:15 78 108/67 06/08/16 12:00 76 115/75 06/08/16 12:00 Room Air 06/08/16 11:45 82 120/80 06/08/16 11:30 85 137/85 06/08/16 11:15 78 124/83 06/08/16 11:00 77 128/86 06/08/16 10:54 78 17 157/110 97 Room Air 06/08/16 10:42 76 17 169/106 99 Nasal Cannula 3 06/08/16 08:00 Room Air 06/08/16 08:00 36.6 70 20 118/77 97 Room Air 06/08/16 04:00 Room Air 06/08/16 04:00 36.6 65 16 116/72 96 Room Air 06/08/16 00:01 Room Air 06/07/16 23:36 69 114/66 06/07/16 23:19 36.7 74 22 127/73 98 Room Air 06/07/16 20:00 Nasal Cannula 2.0 06/07/16 20:00 36.8 88 16 130/87 100 Nasal Cannula 2.0 Physical Exam General Appearance: WD/WN, no apparent distress Respiratory/Chest: normal breath sounds, no respiratory distress Cardiovascular: regular rate, rhythm, no edema Abdomen: non tender, soft Extremities: non-tender, no pedal edema Neurologic/Psychiatric: alert, oriented x 3 Skin: normal color, warm/dry Laboratory Results Last 24 Hours Test 06/07/16 18:10 06/08/16 04:44 06/08/16 05:55 06/08/16 09:08 Troponin I < 0.015 ng/ml < 0.015 ng/ml Creatine Kinase MB Ratio 2.9 White Blood Count 6.36 K/uL Red Blood Count 4.48 M/uL Hemoglobin 13.8 g/dL Hematocrit 39.8 % Mean Corpuscular Volume 88.8 fL Mean Corpuscular Hemoglobin 30.8 pg Mean Corpuscular Hemoglobin Concent 34.7 g/dl Platelet Count 139 K/uL Mean Platelet Volume 11.1 fL Neutrophils (%) (Auto) 46.7 % Lymphocytes (%) (Auto) 38.7 % Monocytes (%) (Auto) 8.6 % Eosinophils (%) (Auto) 5.3 % Basophils (%) (Auto) 0.5 % Neutrophils # (Auto) 2.97 K/uL Lymphocytes # (Auto) 2.46 K/uL Monocytes # (Auto) 0.55 K/uL Eosinophils # (Auto) 0.34 K/uL Basophils # (Auto) 0.03 K/uL RDW Standard Deviation 41.7 fL RDW Coefficient of Variation 13.0 % Immature Granulocyte % (Auto) 0.2 % Immature Granulocyte # (Auto) 0.01 K/uL Sodium Level 142 mmol/L Potassium Level 4.6 mmol/L Chloride Level 106 mmol/L Carbon Dioxide Level 26 mmol/L Anion Gap 10.0 mmol/L Blood Urea Nitrogen 17 mg/dl Creatinine 0.99 mg/dl Est Creatinine Clear Calc Drug Dose 106.0 ml/min Estimated GFR () 104.7 Estimated GFR (Non- 90.3 BUN/Creatinine Ratio 17.3 Random Glucose 110 mg/dl Calcium Level 8.5 mg/dl Total Creatine Kinase 58 U/L Creatine Kinase MB 1.7 ng/ml [place]olin Activated Coagulation Time 183 SECONDS Test 06/08/16 09:25 06/08/16 09:52 06/08/16 10:14 Kaolin Activated Coagulation Time 214 SECONDS 235 SECONDS 255 SECONDS Assessment and Plan 46 y/o M who was admitted on 06/07 for observation for chest pain. 1. Chest pain - h/o CAD s/p stents and was planned for outpt cath today. Increasing sx lead to admission with cath today as planned prior Trop neg x4 LAD CHOLO placed Plavix loading dose with ongoing asa/plavix per cardiology - cont imdur, lisinopril, metoprolol, statin 3. HTN - BP acceptable - cont metoprolol and lisinopril 4. Left shoulder pain - cont percocet prn
--- NOTE | 2016-06-08 18:40 | CARDIOLOGY PROGRESS NOTE ---
DATE: 06/08/2016 TIME: 17:24 p.m. SUBJECTIVE: Mr. Clarke had been admitted for atypical chest pain occurring at rest for several hours with negative troponin levels. He had however, outpatient stress testing done for chest pain as an outpatient concerning for angina given his prior history. This study was nondiagnostic as he did not reach target heart rate due to chest discomfort which terminated the study early. He, therefore, underwent cardiac catheterization earlier today and was found to have a significant proximal LAD stenosis just proximal to his prior mid LAD stent. He underwent PCI with a drug-eluting stent performed by Dr. Álvarez and tolerated the procedure well via right radial artery. This visit was performed later this afternoon following his procedure. He has not had any recurrent chest pain. He denies shortness of breath, syncope, near syncope, palpitations or edema. He denies any significant bleeding. He has several family members at the bedside including his parents and . OBJECTIVE: VITAL SIGNS: Temperature 36.6 degrees, heart rate 67 beats per minute, respiratory rate 20, blood pressure 139/85 mmHg and oxygen saturation 99% on room air. Weight 100.6 kg. GENERAL: No acute distress. He is alert. NECK: No appreciable JVD. CARDIAC: No ventricular heave. Regular, normal S1, S2. No murmurs, rubs or gallops auscultated. LUNGS: Clear to auscultation bilaterally without wheezes, rales or rhonchi. ABDOMEN: Soft, nontender, nondistended, normoactive bowel sounds, no bruits noted. EXTREMITIES: Trace bilateral lower extremity edema. No cyanosis. No palpable cords. Right radial catheterization site still has a TR band on as he reports that he did have some bleeding earlier, but it is scheduled to come off soon. No cyanosis. PSYCHIATRIC: Affect appears appropriate. MEDICATIONS: Include; aspirin 81 mg daily, Lipitor 80 mg daily, Plavix 75 mg daily, isosorbide mononitrate 60 mg daily, lisinopril 10 mg daily, metoprolol 50 mg p.o. b.i.d., normal saline 100 mL per hour. LABORATORIES: Sodium 142, potassium 4.6, BUN 17, creatinine 0.99. Troponins undetectable. Hemoglobin 13.8. Cardiac catheterization results as noted above. ASSESSMENT AND PLAN: 1. Chest pain: The chest pain may or may not have been related to ischemic heart disease as he did have a prolonged episode except for several hours prompting this hospitalization with negative troponins. Some of his other outpatient chest pain which was exertional may have correlated with ischemic heart disease. Hopefully, he remains asymptomatic following percutaneous coronary intervention. 2. Coronary artery disease status post percutaneous coronary intervention: A drug-eluting stent was placed in his proximal left anterior descending as noted above. Continue aspirin 81 mg daily indefinitely. Continue Plavix. Continue beta gail and high intensity statin therapy. 3. Hypertension: Blood pressure well-controlled on current regimen. Continue outpatient regimen. 4. Disposition: Cardiology will continue to follow. If he has an uneventful night from a cardiac perspective, could likely be discharged tomorrow. EMILY
[2016-06-08] MEDS: ATORVASTATIN 40 MG TAB PO SCH (19:53)
[2016-06-09 03:06] VITALS: BP 103/64; PULSE 69; TEMP 36.8; O2SAT 97
[2016-06-09 07:04] VITALS: BP 117/70; PULSE 70; TEMP 36.7; O2SAT 98
[2016-06-09 07:20] LABS: BASO % 0.5 %; BASO ABS # 0.04 K/uL (0-0.2); COMPLETE YES; EOS % 3.6 %; HEMATOCRIT 42.3 % (42-52); IG% 0.1 %; LYMPH % 27.6 %; LYMPH ABS # 2.07 K/uL (1.2-3.4); MEAN CELL VOLUME 86.3 fL (80-100); MEAN CORPUSCULAR HEMOGLOBIN 30.4 pg (25-34); MEAN CORPUSCULAR HGB CONC 35.2 g/dl (32-36); MEAN PLATELET VOLUME 10.8 fL (7.4-10.4); MONO % 9.2 %; PLATELET COUNT 149 K/uL (130-400)
[2016-06-09 08:01] LABS: BUN/CREATININE RATIO 12.1 (10-20); CALCIUM 8.7 mg/dl (8.5-10.1); POTASSIUM 3.8 mmol/L (3.5-5.1)
[2016-06-09] MEDS: ASPIRIN 81 MG ECTAB PO SCH (08:02)
[2016-06-09] MEDS: ISOSORBIDE MONONITRATE 60 MG TABCR PO SCH (08:03)
[2016-06-09] MEDS: LISINOPRIL 10 MG TAB PO SCH (08:03)
[2016-06-09] MEDS: CLOPIDOGREL BISULFATE 75 MG TAB PO SCH (08:03)
[2016-06-09] MEDS: METOPROLOL TARTRATE 50 MG TAB PO SCH (08:03)
--- NOTE | 2016-06-09 09:13 | CARDIOLOGY PROGRESS NOTE ---
DATE: 06/09/2016 TIME: 08:52 a.m. SUBJECTIVE: Denies chest pain, shortness of breath, syncope, near syncope, palpitations or bleeding. He tolerated ambulation in the hallway. He believes that overall he feels much better following PCI of his proximal LAD yesterday than he did prior. He tolerated the procedure well. OBJECTIVE: VITAL SIGNS: Temperature 36.7 degrees, heart rate 70 beats per minute, respiratory rate 18, blood pressure 117/70 mmHg, and oxygen saturation is 98% on room air. Weight 98.9 kg. GENERAL: No acute distress. He is alert. NECK: No appreciable JVD, but thick neck. CARDIAC EXAM: No ventricular heave. Regular, normal S1 and S2. 1/6 systolic murmur. No rubs or gallops. LUNGS: Clear to auscultation bilaterally without wheezes, rales or rhonchi. ABDOMEN: Abdomen is soft, nontender, and nondistended. Normoactive bowel sounds. No bruits. EXTREMITIES: Trace bilateral lower extremity edema. No cyanosis. Right radial catheterization site is clean, dry and intact without erythema or discharge. 2+ right radial pulse. PSYCHIATRIC: Affect appears appropriate. MEDICATIONS: Include aspirin 81 mg daily, Plavix 75 mg daily, isosorbide mononitrate 60 mg daily, lisinopril 10 mg daily, and metoprolol tartrate 50 mg p.o. b.i.d. Telemetry, no arrhythmia. Telemetry personally reviewed. LABORATORY DATA: White blood cell count is 7.5, hemoglobin 14.9, and platelets 149. Sodium 141, potassium 3.8, BUN 12, and creatinine 1. ECG post-PCI personally reviewed. This was performed on 06/08/2016 at 11:26 a.m., sinus rhythm at 81 beats per minute. Voltage criteria for LVH. Cardiac catheterization, findings as noted yesterday. He has received a 3 x 18 mm Xience drug-eluting stent, overlapped with the prior LAD stent and post-dilated with a 4-mm noncompliant balloon. Small first diagonal vessel narrowed at the ostium approximately 90% with NICKOLAS-3 flow. ASSESSMENT AND PLAN: 1. Coronary artery disease, status post PCI: He had proximal LAD stent placed. He tolerated the procedure well. No further angina. No heart failure symptoms. Continue aspirin 81 mg daily indefinitely. Continue Plavix for 1 year, possibly longer. Continue high intensity statin therapy as well as beta gail therapy and nitrate therapy. 2. Chest pain: He has not had any further chest pain. Some of his chest pain was a bit atypical and that lasted for hours with negative troponins. This may or may not correlate with ischemic heart disease. Hopefully, he is much improved following PCI. 3. Hypertension: Blood pressure well controlled on current medications. No changes made today. 4. Disposition: Okay to discharge from a cardiology standpoint. He will follow up in the next 2-3 weeks. Continue medications as noted above. Please include in the discharge instructions, radial catheterization post-procedural instructions. This has been communicated with Dr. Melissa Chavez of the hospitalist service.
--- NOTE | 2016-06-09 10:06 | Discharge Instructions ---
Discharge Instructions Admission Reason for Admission: Chest Tightness Discharge Discharge Diagnosis / Problem: Chest pain, LAD occlusion Discharge Goals Goal(s): Decrease discomfort, Improve function, Increase independence Activity Recommendations Activity Limitations: per Instructions/Follow-up section ACTIVITY RECOMMENDATIONS: Excess manipulation of the wrist should be avoided for the next 24-48 hours. * No lifting over 2 pounds (approximately a 1/2 gallon of milk) with the utilized arm for 24 hours. * No strenuous activity such as bowling or tennis for 3 days. * Keep the site of the procedure covered with a bandage for 24 hours. *You may shower the day after the procedure. Do not take a tub bath or submerge the puncture site in water for the next 3 days. *Do not operate any motorized equipment for 3 days. SPECIAL CARE INSTRUCTIONS: The site may be slightly bruised and sore following your procedure. Should any of the following occur, contact the Dr. who performed your procedure. 1. Redness/inflammation, swelling, chills, or fever, or colored drainage at procedure site within 3-7 days after your procedure. 2. Coldness, discoloration, ongoing numbness, severe pain, or swelling. Expect mild tingling of hand and tenderness at the puncture site for up to three days. If this persists beyond three days, or other symptoms develop, notify the Dr. who performed your procedure. BLEEDING: If the procedure site on your wrist begins to bleed, do not panic 1. Place 1 or 2 fingers firmly just slightly above the insertion site to stop the bleeding. You may be able to feel your pulse as you hold pressure. 2. Lift your finger after 5 minutes to see if the bleeding has stopped. 3. Once the bleeding has stopped, gently wipe the wrist area clean with a bandage. * If the bleeding from your wrist does not stop after 10 minutes, or if there is a large amount of bleeding or spurting, call 911 (do not drive yourself to the hospital). SKIN IRRITATION: * You may experience some redness and/or swelling in the area where radiation was administered. If any skin irritation occurs, please contact your family physician. FOLLOW UP VISIT: Keep any scheduled doctor appointments. . Instructions / Follow-Up Instructions / Follow-Up You will need to start cardiac rehab as soon as possible. If you do not hear from the cardiology office about scheduling this by Sunday, you should call them to schedule. You will follow-up with Dr. Da Silva in 2-[address] Garcia in 1-2 weeks Home Care: * Take your medications exactly as directed. Don't skip doses. * Remember that recovery after a heart attack takes time. Plan to rest for at lease 4-8 weeks while you recover. Then return to normal activity when your doctor says it's okay. * Ask your doctor about joining a heart rehabilitation program. * Tell your doctor if you are feeling depressed. Feelings of sadness are common after a heart attack, but it is important that you speak to someone if you are feeling overwhelmed by these feelings. * If you are having chest pain, call 911 for an ambulance. Do NOT drive yourself to the hospital. * Ask your family members to learn CPR. * Learn to take your own blood pressure and pulse. Keep a record of your results. Ask your doctor when you should seek emergency medical attention. He or she will tell you which blood pressure reading is dangerous. Lifestyle Changes: * Maintain a healthy weight. Get help to lose any extra pounds. * Cut back on salt. * Limit canned, dried, packaged, and fast foods. * Don't add salt to your food. * Season foods with herbs instead of salt when you cook. * Break the smoking habit. Enroll in a stop-smoking program to improve your chances of success. * Limit fatty foods. * Check your lipid levels regularly. (Your doctor can show you how to do this.) * Build up your activity according to your doctor's recommendation. * Ask your doctor when it's okay to resume sexual activity. * Tell your doctor about any erectile dysfunction (ED) medication you are taking. Some ED medications are not safe if you take certain heart medications. * Try to manage stress. Follow Up: It is important for you to keep your follow up appointments with your medical provider. Current Hospital Diet Patient's current hospital diet: AHA Diet (Heart Healthy), Low Sodium Diet (2gm Na) Discharge Diet Recommended Diet: AHA Diet (Heart Healthy) Pending Studies Studies pending at discharge: no Laboratory Results Lipid Panel Test 04/14/16 10:45 Range/Units Triglycerides Level 119 0-150 mg/dl Cholesterol Level 108 0-200 mg/dl HDL Cholesterol 46 mg/dl Cholesterol/HDL Ratio 2.3 LDL Cholesterol, Calculated 38 mg/dl Medical Emergencies . Who to Call and When: Medical Emergencies: If at any time you feel your situation is an emergency, please call 911 immediately. Call 911 immediately or go to your nearest Emergency Room if you experience any of the following: Warning Signs and Symptoms of a Heart Attack * Chest pain that is not relieved by medication * Shortness of breath . Non-Emergent Contact Non-Emergency issues call your: Primary Care Provider . . "Provider Documentation" section prepared by Melissa Chavez. AMI Core Measures Reason no ASA as I/P: Treatment provided - N/A Reason no ASA at D/C: Treatment provided - N/A Reason no statin as I/P: Treatment provided - N/A Reason no statin at D/C: Treatment provided - N/A VTE Core Measure Inpt VTE Proph given/why not?: Other Anticoagulation
--- NOTE | 2016-06-09 10:10 | Discharge Summary ---
Discharge Summary Admission Date: Jun 07, 2016 at 09:28 Discharge Date: Jun 09, 2016 Discharge Disposition: Home Principal Diagnosis: LAD occlusion Problems/Secondary Diagnoses: (1) Hx of coronary artery disease Status: Chronic HTN Obesity Hyperlipidemia Asthma GERD L ankle paralysis Procedures: Cath 06/08 with LAD CHOLO Consultations: Dr. Álvarez and Dr. Da Silva Medication Reconciliation Continued Medications: Albuterol Sulfate (Proair Respiclick) 108 Mcg/Act Aer 2 PUFFS INH QID PRN for SOB/Wheezing Aspirin (Aspirin Ec) 81 Mg Tab 81 MG PO DAILY Atorvastatin (Lipitor) 80 Mg Tab 80 MG PO QPM, TAB Clopidogrel Bisulfate (Clopidogrel) 75 Mg Tab 75 MG PO QAM for 30 Days, #30 TAB Furosemide (Lasix) 20 Mg Tab 20 MG PO DAILY MAY TAKE ADDITIONAL ONE DAILY FOR INCREASED WT AND/OR SOB Isosorbide Mononitrate Ext Rel (Imdur Ext Rel) 60 Mg Ertab 60 MG PO QAM, TAB Lisinopril (Prinivil) 10 Mg Tab 10 MG PO QAM, TAB Metoprolol Tartrate (Metoprolol Tartrate) 50 Mg Tab 50 MG PO BID Nitroglycerin (Nitrostat) 0.4 Mg Tab 0.4 MG UT UD PRN for Chest Pain Oxycodone/Acetaminophen 5MG/325MG (Percocet 5MG/325MG) Tab 1-2 TABLETS PO Q6 PRN for Pain, #40 TAB Discharge Exam Pt is doing well. No recurrence of chest pain since cath. No SOB. Eating well. Pt denies fever, abd pain, n/v/c/d, LE pain or swelling. ROS as noted above, otherwise neg. Physical Exam: General Appearance: no apparent distress, + obese Respiratory/Chest: normal breath sounds, no respiratory distress Cardiovascular: regular rate, rhythm, no edema Abdomen / GI: non tender, soft Extremities: no calf tenderness, no pedal edema Neurologic/Psychiatric: alert, normal mood/affect, oriented x 3 Skin: normal color, warm/dry Hospital Course 46 y/o M who was admitted on 06/07 for observation for chest pain. 1. Chest pain - h/o CAD s/p stents and was planned for outpt cath today. Increasing sx lead to admission with cath 06/08 as planned prior Trop neg x4 LAD CHOLO placed Ongoing asa/plavix per cardiology, asa indefinitely, plavix x1 year and possibly longer - cont imdur, lisinopril, metoprolol, statin Cardiac rehab 3. HTN - BP acceptable - cont metoprolol and lisinopril 4. Left shoulder pain - cont percocet prn Total Time Spent: Greater than 30 minutes This includes examination of the patient, discharge planning, medication reconciliation, and communication with other providers. Discharge Instructions Please refer to the electronic Patient Visit Report (Discharge Instructions) for additional information. Follow-Up Dr. Da Silva in 2-[address] Garcia in 1-2 weeks Additional Copies To Latisha Garcia MD
[2016-06-09 10:20] VITALS: BP 117/70; PULSE 70; TEMP 36.7; O2SAT 98
== END 2016-06-09 10:58 | disposition home or self-care (01) ==
LOC: ENRESERVTM → ENRESERVDT → EDBD 04:44 → C.EDB 04:46 → C.2T 09:28
PROVIDERS: ADMIT Internal Medicine; ATTEND Family Medicine
DX: I25.119 Atherosclerotic heart disease of native coronary artery with unspecified angina pectoris (principal); J45.909 Unspecified asthma, uncomplicated; I10 Essential (primary) hypertension; E66.9 Obesity, unspecified; E78.5 Hyperlipidemia, unspecified; M25.512 Pain in left shoulder; G57.92 Unspecified mononeuropathy of left lower limb; I25.2 Old myocardial infarction; Z90.49 Acquired absence of other specified parts of digestive tract; Z79.82 Long term (current) use of aspirin; Z87.891 Personal history of nicotine dependence; Z82.49 Family history of ischemic heart disease and other diseases of the circulatory system

== ENCOUNTER 2016-06-18 02:20 | Observation (INO) | payer OTHER ==
[~2016-06-18] VITALS: Ht 172.7 cm; Wt 110.2 kg
[~2016-06-18 02:20] MED LIST changes: +ASPI81TA28 PO; -ASPI81TA57 PO; -CITA20TA9 PO; -ISOS30TA35 PO; +ISOS60TA25 PO
[2016-06-18 03:09] LABS: HEMATOCRIT 38.5 % (42-52); MEAN CELL VOLUME 84.8 fL (80-100); MEAN CORPUSCULAR HEMOGLOBIN 30.8 pg (25-34); MEAN CORPUSCULAR HGB CONC 36.4 g/dl (32-36); MEAN PLATELET VOLUME 10.7 fL (7.4-10.4); PLATELET COUNT 173 K/uL (130-400); RED BLOOD COUNT 4.54 M/uL (4.7-6.1); WHITE BLOOD COUNT 6.11 K/uL (4.8-10.8)
[2016-06-18 03:19] LABS: INR 0.9 (0.9-1.1)
[2016-06-18 03:28] LABS: BUN/CREATININE RATIO 13.7 (10-20); CALCIUM 8.7 mg/dl (8.5-10.1); CREATININE 0.92 mg/dl (0.60-1.40); POTASSIUM 3.8 mmol/L (3.5-5.1)
[2016-06-18 03:33] LABS: ALB/GLOB RATIO 1.2 (0.9-2); CKMB/CK RATIO 1.8 (0-3.0)
[2016-06-18] MEDS ORDERED: ASPIRIN 81 MG CHEW PO STA (03:42)
[2016-06-18] MEDS ORDERED: SODIUM CHLORIDE 0.9% 1000ML 1,000 ML IV STA (03:42)
[2016-06-18] MEDS ORDERED: NITROGLYCERIN OINT 2% 1GM PACKET EXT ONE (03:45)
[2016-06-18] MEDS ORDERED: ACETAMINOPHEN 325 MG TAB PO PRN (06:15)
[2016-06-18] MEDS ORDERED: NITROGLYCERIN 0.4 MG SL PER TAB CHARGE SL PRN (06:15)
[2016-06-18] MEDS ORDERED: NITROGLYCERIN 0.4 MG SL PER TAB CHARGE UT PRN (06:15)
[2016-06-18] MEDS ORDERED: ZOLPIDEM TARTRATE 5 MG TAB PO PRN (06:15)
[2016-06-18] MEDS ORDERED: OXYCODONE/ACETAMINOPHEN 5-325 TAB PO PRN (06:15)
[2016-06-18] MEDS ORDERED: ONDANSETRON INJ 2 MG/ML 2 ML VIAL IV PRN (06:15)
[2016-06-18 06:35] VITALS: BP 146/95; PULSE 76; TEMP 36.8; O2SAT 97; Ht 172.7 cm; Wt 110.2 kg
[2016-06-18] MEDS ORDERED: LEVALBUTEROL 1.25MG/0.5ML NEB INH PRN (06:45)
[2016-06-18] MEDS ORDERED: IPRATROPIUM BROMIDE NEB SOLN 0.02% 2.5 ML VIAL INH PRN (06:45)
[2016-06-18] MEDS ORDERED: IV FLUIDS COMPLETED PRN (06:45)
--- NOTE | 2016-06-18 06:50 | History and Physical ---
History & Physical Date & Time of Service: Jun 18, 2016 at 06:35 Chief Complaint: Hard To Breathe Primary Care Physician: Latisha Garcia MD History of Present Illness Source: patient The patient is a 46-year-old male who was admitted into the hospital from June 07 to June 09 for chest pain, underwent a cardiac catheterization on June 08 with placement of an LAD stent. Patient was discharged home on June 09, has been taking his medications as directed, and reports that early this morning he was awoken from sleep by shortness of breath and a pressure type sensation over the left precordial area. He presented to the emergency department for assessment, and had a negative cardiac workup as far as normal cardiac enzymes and no EKG change. His livestock showman Dr. Álvarez was called by the emergency department, and felt that the symptoms were not likely related to cardiac issues. Past Medical/Surgical History Medical Problems: (1) Asthma Status: Chronic (2) HTN (hypertension) Status: Chronic (3) Hx of coronary artery disease Status: Chronic (4) NSTEMI (non-ST elevated myocardial infarction) Permanent Comment: S/P LAD stent 2012 Status: Chronic (5) paralyzed left ankle Status: Chronic (6) PUD (peptic ulcer disease) Status: Chronic (7) Tobacco abuse Status: Chronic Surgical Problems: (1) H/O cardiac catheterization Permanent Comment: 90% prox LAD s/p stent; normal LV function Status: Chronic (2) S/P appendectomy Status: Chronic (3) S/P surgical manipulation of ankle joint Status: Chronic (4) S/P tonsillectomy Status: Chronic Family History Cancer Gallbladder disease Heart disease Hypertension Social History Smoking Status: Never Smoker Smokeless Tobacco Use: No Alcohol Use: none Drug Use: none Marital Status: Housing status: lives with family Occupational Status: employed Multi-Drug Resistant Organisms History of MDRO: No Allergies Coded Allergies: No Known Allergies (Unverified , 06/18/16) Home Medications Scheduled Aspirin (Aspirin Ec), 81 MG PO DAILY Atorvastatin (Lipitor), 80 MG PO QPM Clopidogrel Bisulfate (Clopidogrel), 75 MG PO QAM Furosemide (Lasix), 20 MG PO DAILY Isosorbide Mononitrate Ext Rel (Imdur Ext Rel), 60 MG PO QAM Lisinopril (Prinivil), 10 MG PO QAM Metoprolol Tartrate (Metoprolol Tartrate), 50 MG PO BID Scheduled PRN Albuterol Sulfate (Proair Respiclick), 2 PUFFS INH QID PRN for SOB/Wheezing Nitroglycerin (Nitrostat), 0.4 MG UT UD PRN for Chest Pain Oxycodone/Acetaminophen 5MG/325MG (Percocet 5MG/325MG), 1-2 TABLETS PO Q6 PRN for Pain Review of Systems The patient denies chest pain, palpitations, lower extremity swelling, vision change, hearing change, sore throat, fevers, chills, sweats, weight change, fatigue, nausea, vomiting, abdominal pain, pelvic pain, blood in urine or stool , dysuria, urinary frequency or urgency, lightheadedness, dizziness, headache, memory loss, rash, abnormal bruising or bleeding, imbalance, focal or generalized weakness, numbness or tingling in arms or legs, arthralgias or myalgias, back or neck pain, night sweats, or allergy symptoms. The review of systems is otherwise negative other than for that already noted above, and at least 10 systems have been reviewed. Physical Exam Vital Signs Date Time Temp Pulse Resp B/P Pulse Ox O2 Delivery O2 Flow Rate FiO2 06/18/16 06:31 74 06/18/16 06:17 66 18 146/99 94 Room Air 06/18/16 05:29 72 20 154/98 94 Room Air 06/18/16 03:54 75 18 159/93 97 Room Air 06/18/16 03:01 97 Room Air 06/18/16 02:39 78 06/18/16 02:34 99 Room Air 06/18/16 02:34 97 Room Air 06/18/16 02:25 36.4 83 18 150/75 99 Room Air The patient is awake, well-developed and adequately nourished, alert and oriented 3, normocephalic and atraumatic, lying in bed and in no further acute distress. HEENT--PERRL, EOMI, mucous membranes and oropharynx moist. Neck--supple, no JVD or bruits, thyroid normal, trachea midline, no adenopathy. Heart--normal S1 and S2, no extra beats, no murmurs, rubs or gallops. Lungs--decreased breath sounds throughout, no respiratory distress, no accessory muscle use. Abdomen--normal bowel sounds and soft, nontender and nondistended, no hernias or masses, no organomegaly. Extremities--no cyanosis, clubbing or edema. There are good distal pulses b/l. Dermatologic--normal skin turgor, normal color, warm and dry, no abnormal lymph nodes, no rash. Neurologic--cranial nerves II through XII grossly intact, motor and sensory examination normal. Rheumatologic--normal range of motion, nontender, muscles and joints. Psychiatric--normal affect. Diagnostics Laboratory Results Results Past 24 Hours Test 06/18/16 02:40 06/18/16 03:03 06/18/16 06:08 Range/Units White Blood Count 6.11 4.8-10.8 K/uL Red Blood Count 4.54 4.7-6.1 M/uL Hemoglobin 14.0 14.0-18.0 g/dL Hematocrit 38.5 42-52 % Mean Corpuscular Volume 84.8 80-100 fL Mean Corpuscular Hemoglobin 30.8 25-34 pg Mean Corpuscular Hemoglobin Concent 36.4 32-36 g/dl RDW Standard Deviation 38.6 36.4-46.3 fL RDW Coefficient of Variation 12.6 11.5-14.5 % Platelet Count 173 130-400 K/uL Mean Platelet Volume 10.7 7.4-10.4 fL Prothrombin Time 10.0 9.0-12.0 SECONDS Prothromb Time International Ratio 0.9 0.9-1.1 Activated Partial Thromboplast Time 25.5 21.0-31.0 SECONDS Partial Thromboplastin Ratio 1.0 D-Dimer 240 0-500 ug/L FEU Sodium Level 141 136-145 mmol/L Potassium Level 3.8 3.5-5.1 mmol/L Chloride Level 105 98-107 mmol/L Carbon Dioxide Level 26 21-32 mmol/L Anion Gap 10.0 3-11 mmol/L Blood Urea Nitrogen 13 7-18 mg/dl Creatinine 0.92 0.60-1.40 mg/dl Est Creatinine Clear Calc Drug Dose 120.0 ml/min Estimated GFR () 114.4 Estimated GFR (Non- 98.7 BUN/Creatinine Ratio 13.7 10-20 Random Glucose 151 70-99 mg/dl Calcium Level 8.7 8.5-10.1 mg/dl Total Bilirubin 0.7 0.2-1 mg/dl Aspartate Amino Transf (AST/SGOT) 21 15-37 U/L Alanine Aminotransferase (ALT/SGPT) 49 12-78 U/L Alkaline Phosphatase 100 45-117 U/L Total Creatine Kinase 120 39-308 U/L Creatine Kinase MB 2.1 0.5-3.6 ng/ml Creatine Kinase MB Ratio 1.8 0-3.0 Total Protein 6.9 6.4-8.2 gm/dl Albumin 3.7 3.4-5.0 gm/dl Globulin 3.2 2.5-4.0 gm/dl Albumin/Globulin Ratio 1.2 0.9-2 Bedside Troponin I 0.000 0-0.045 ng/ml CXR normal EKG EKG shows normal sinus rhythm at 75 bpm, residual ST depression in lead III, that is improved from last hospital visit, and there are no acute ST-T changes. Impression Assessment and Plan Shortness of breath that awakened patient from sleep, with precordial chest pressure, all of which were improved with sublingual nitroglycerin in the emergency department. The patient is status post drug-eluting LAD stent 2016, and has normal cardiac enzymes thus far this admission. The patient will be admitted to the telemetry unit for serial cardiac enzymes, cardiac rhythm monitoring and a 2-D echocardiogram with Dopplers. We'll consult cardiology. Continue enteric-coated aspirin 81 mg by mouth daily, clopidogrel 75 mg by mouth every morning, furosemide 20 mg by mouth daily, Imdur extended release 60 mg by mouth daily, lisinopril 10 mg by mouth every morning, metoprolol tartrate 50 mg by mouth twice a day, and nitroglycerin sublinguals when necessary. Hypercholesterolemia--continue atorvastatin 80 mg by mouth every afternoon. Chronic pain management --continue oxycodone/acetaminophen 5/325, 1 tablet by mouth every 4 hours when necessary. Level of Care Telemetry Advanced Directives Existing Advance Directive: No Existing Living Will: No Existing Power of Vision Impaired Teacher: No Resuscitation Status FULL RESUSCITATION VTE Prophylaxis VTE Risk Assessment Done? Y/N: Yes Risk Level: Moderate Given or contraindicated: SCD's Social Service Consult None Apply
[2016-06-18 07:21] LABS: CKMB/CK RATIO 1.9 (0-3.0)
--- NOTE | 2016-06-18 07:33 | DIAGNOSTIC IMAGING REPORT ---
CHEST ONE VIEW PORTABLE HISTORY: Short of breath. COMPARISON: Chest 06/07/2016. FINDINGS: The lungs are clear. Cardiac silhouette is normal in size. No pleural effusions. No pneumothorax. IMPRESSION: No acute process. Electronically signed by: Beka Cueto M.D. 06/18/2016 7:31 AM Dictated Date/Time: 06/18/2016 7:30 AM
[2016-06-18 08:00] VITALS: BP 131/88; PULSE 67; O2SAT 97
[2016-06-18] MEDS ORDERED: LISINOPRIL 10 MG TAB PO SCH (09:00)
[2016-06-18] MEDS ORDERED: ISOSORBIDE MONONITRATE 60 MG TABCR PO SCH (09:00)
[2016-06-18] MEDS ORDERED: METOPROLOL TARTRATE 50 MG TAB PO SCH (09:00)
[2016-06-18] MEDS ORDERED: CLOPIDOGREL BISULFATE 75 MG TAB PO SCH (09:00)
[2016-06-18] MEDS ORDERED: FUROSEMIDE 20 MG TAB PO SCH (09:00)
[2016-06-18] MEDS ORDERED: LEVALBUTEROL/IPRATROPIUM NEB INH SCH (09:00)
[2016-06-18] MEDS: IPRATROPIUM BROMIDE NEB SOLN 0.02% 2.5 ML VIAL INH SCH ×2 (09:48→11:27)
[2016-06-18] MEDS: LEVALBUTEROL 1.25MG/0.5ML NEB INH SCH ×2 (09:48→11:27)
[2016-06-18] MEDS ORDERED: PERFLUTREN LIPID MICROSPHERE (DEFINITY) IV ONE (10:04)
--- NOTE | 2016-06-18 11:25 | ECHOCARDIOGRAM REPORT ---
*NOTICE TO RECEIVING [employer] This information is strictly Confidential and protected under [place] law. [place] law prohibits you from making any further disclosure of this information unless further disclosure is expressly permitted by the written consent of the person to whom it pertains or is authorized by law. A general authorization for the release of medical or other information is not sufficient for this purpose. Hospital accepts no responsibility if the information is made available to any other person, INCLUDING THE PATIENT. Interpretation Summary * Name: RADHIKA ZHAO Study Date: 06/18/2016 09:38 AM BP: 146/95 mmHg * Patient Location: C.2E\S\E212\S\1 HR: 72 * : 1970 (M/d/yyyy) Gender: Male Height: 68 in * Age: 46 yrs Ethnicity: CA Weight: 244 lb * Ordering Physician: Esvin Harvey * Referring Physician: Self, Referred * Performed By: Alexis Taylor RDCS * * Reason For Study: Chest pain, S/P LAD DUE stent 06/08/16 * BSA: 2.2 m2 * -- Conclusions -- * 1. Normal LV size, mild concentric LVH. * 2. Normal LV systolic function. LVEF 60-65%. No regional wall motion abnormalities. * 3. Normal RV size and function. * 4. Trace aortic regurgitation, trace mitral regurgitaion. * 5. Compared with prior study on 08/14/2015: No significant changes. Procedure Details * A complete two-dimensional transthoracic echocardiogram was performed (2D, M-mode, Doppler and color flow Doppler). * The study was technically difficult. * The study was technically difficult, but visualization was adequate with the administration of Definity ultrasound contrast. * A contrast injection of Definity was performed to improve assessment of LV function. * Contrast was injected into an intravenous site in the right arm. * One vial of Definity ultrasound contrast was diluted in normal saline to a total volume of 10 ml. A total of '3' ml of solution was administered during imaging. * Lot # [id number] of Definity utilized for procedure. * Expiration date . * The attending nurse who injected the contrast agent was NORM Calderon. Left Ventricle * The left ventricle is normal in size. * There is mild concentric left ventricular hypertrophy. * Ejection Fraction = 60-65%. * No regional wall motion abnormalities noted. Right Ventricle * The right ventricle is grossly normal size. * The right ventricular systolic function is normal as assessed by tricuspid annular plane systolic excursion (TAPSE) (normal >1.5 cm). Atria * The left atrial size is normal. * Right atrial size is normal. * No ASD detected; PFO is not assessed. Mitral Valve * The mitral valve is grossly normal. * There is trace mitral regurgitation. Tricuspid Valve * The tricuspid valve is not well visualized, but is grossly normal. * There is trace tricuspid regurgitation. * Right ventricular systolic pressure is normal. Aortic Valve * The aortic valve opens well. * The aortic valve is trileaflet. * No hemodynamically significant valvular aortic stenosis. * Trace aortic regurgitation. Pulmonic Valve * The pulmonary valve is inadequately visualized, but the Doppler data is adequate for interpretation. * There is no pulmonic valvular stenosis. * There is no significant pulmonary regurgitation. Great Vessels * The aortic root and proximal ascending aorta are normal sized. Pericardium/Pleural * There is no pericardial effusion. MMode 2D Measurements and Calculations IVSd 1.2 cm IVSs 1.7 cm LVIDd 5.1 cm LVIDs 3.1 cm LVPWd 1.2 cm LVPWs 1.7 cm IVS/LVPW 1.0 FS 38.7 % EDV(Teich) 122.3 ml ESV(Teich) 38.2 ml EF(Teich) 68.8 % EDV(cubed) 130.6 ml ESV(cubed) 30.1 ml EF(cubed) 77.0 % % IVS thick 36.1 % % LVPW thick 44.9 % LV mass(C)d 240.3 grams LV mass(C)dI 108.0 grams/m\S\2 LV mass(C)s 203.1 grams LV mass(C)sI 91.3 grams/m\S\2 SV(Teich) 84.1 ml SI(Teich) 37.8 ml/m\S\2 SV(cubed) 100.5 ml SI(cubed) 45.2 ml/m\S\2 EPSS 0.53 cm Ao root diam 3.1 cm Ao root area 7.8 cm\S\2 ACS 2.1 cm LA dimension 4.2 cm asc Aorta Diam 3.2 cm LA/Ao 1.3 LVOT diam 2.1 cm LVOT area 3.4 cm\S\2 LVAd ap4 27.4 cm\S\2 LVLd ap4 7.7 cm EDV(MOD-sp4) 79.0 ml LVAs ap4 16.6 cm\S\2 LVLs ap4 7.3 cm ESV(MOD-sp4) 31.0 ml EF(MOD-sp4) 60.8 % LVAd ap2 20.8 cm\S\2 LVLd ap2 7.1 cm EDV(MOD-sp2) 51.0 ml LVAs ap2 12.2 cm\S\2 LVLs ap2 6.0 cm ESV(MOD-sp2) 20.0 ml EF(MOD-sp2) 60.8 % SV(MOD-sp4) 48.0 ml SI(MOD-sp4) 21.6 ml/m\S\2 SV(MOD-sp2) 31.0 ml SI(MOD-sp2) 13.9 ml/m\S\2 Doppler Measurements and Calculations MV E max cynthia 91.3 cm/sec MV A max cynthia 57.8 cm/sec MV E/A 1.6 MV dec time 0.17 sec Ao V2 max 173.7 cm/sec Ao max PG 12.1 mmHg Ao max PG (full) 5.9 mmHg POLI(V,A) 2.4 cm\S\2 POLI(V,D) 2.4 cm\S\2 AI max cynthia 387.5 cm/sec AI max PG 60.1 mmHg AI dec slope 162.5 cm/sec\S\2 AI P1/2t 698.4 msec LV V1 max PG 6.2 mmHg LV V1 max 124.0 cm/sec PA V2 max 128.1 cm/sec PA max PG 6.6 mmHg TR max cynthia 230.8 cm/sec
[2016-06-18 11:28] VITALS: PULSE 81; O2SAT 98
--- NOTE | 2016-06-18 11:37 | Discharge Instructions ---
Discharge Instructions Admission Reason for Admission: Sob, Stented Coronary Artery Discharge Discharge Diagnosis / Problem: non cardiac chest pain Discharge Goals Goal(s): Diagnostic testing, Therapeutic intervention Activity Recommendations Activity Limitations: resume your previous activity . Current Hospital Diet Patient's current hospital diet: AHA Diet (Heart Healthy) Discharge Diet Recommended Diet: AHA Diet (Heart Healthy) Pending Studies Studies pending at discharge: no Laboratory Results Lipid Panel Test 04/14/16 10:45 Range/Units Triglycerides Level 119 0-150 mg/dl Cholesterol Level 108 0-200 mg/dl HDL Cholesterol 46 mg/dl Cholesterol/HDL Ratio 2.3 LDL Cholesterol, Calculated 38 mg/dl Medical Emergencies . Who to Call and When: Medical Emergencies: If at any time you feel your situation is an emergency, please call 911 immediately. . Non-Emergent Contact Non-Emergency issues call your: Life Enrichment Manager . . "Provider Documentation" section prepared by Loyd Tamez. VTE Core Measure Inpt VTE Proph given/why not?: SCD's
--- NOTE | 2016-06-18 11:44 | Discharge Summary ---
Discharge Summary Date of Service Jun 18, 2016. Discharge Summary Admission Date: Jun 18, 2016 at 06:14 Discharge Date: Jun 18, 2016 Discharge Disposition: Home Principal Diagnosis: non cardiac chest pain Problems/Secondary Diagnoses: (1) Hx of coronary artery disease Status: Chronic Procedures: Cardiac echo, no new changes per Dr Álvarez Medication Reconciliation Continued Medications: Albuterol Sulfate (Proair Respiclick) 108 Mcg/Act Aer 2 PUFFS INH QID PRN for SOB/Wheezing Aspirin (Aspirin Ec) 81 Mg Tab 81 MG PO DAILY Atorvastatin (Lipitor) 80 Mg Tab 80 MG PO QPM, TAB Clopidogrel Bisulfate (Clopidogrel) 75 Mg Tab 75 MG PO QAM for 30 Days, #30 TAB Furosemide (Lasix) 20 Mg Tab 20 MG PO DAILY MAY TAKE ADDITIONAL ONE DAILY FOR INCREASED WT AND/OR SOB Isosorbide Mononitrate Ext Rel (Imdur Ext Rel) 60 Mg Ertab 60 MG PO QAM, TAB Lisinopril (Prinivil) 10 Mg Tab 10 MG PO QAM, TAB Metoprolol Tartrate (Metoprolol Tartrate) 50 Mg Tab 50 MG PO BID Nitroglycerin (Nitrostat) 0.4 Mg Tab 0.4 MG UT UD PRN for Chest Pain Oxycodone/Acetaminophen 5MG/325MG (Percocet 5MG/325MG) Tab 1-2 TABLETS PO Q6 PRN for Pain, #40 TAB Discharge Exam Review of Systems: Constitutional: No chills, No fever Respiratory: No cough, No dyspnea on exertion, No shortness of breath, No sputum Cardiovascular: No chest pain, No orthopnea Abdomen: No diarrhea, No nausea, No pain, No vomiting Psychiatric: No anhedonism, No depression symptoms Physical Exam: General Appearance: WD/WN, no apparent distress Eyes: PERRL, EOMI Neck: supple, no JVD Respiratory/Chest: chest non-tender, lungs clear, normal breath sounds Cardiovascular: regular rate, rhythm, no murmur Abdomen / GI: normal bowel sounds, non tender, soft Extremities: no pedal edema, normal range of motion Hospital Course 46 M status post drug-eluting LAD stent 02/05/2017, and has normal cardiac enzymes, normal 2-D echocardiogram per Dr Álvarez Non cardiac chest pain, maybe reflux as happened after drinking half gallon chochlate milk. aspirin 81 mg, clopidogrel 75, furosemide 20, Imdur extended release 60 mg , lisinopril 10 mg, metoprolol tartrate 50 mg by mouth twice a day , and nitroglycerin sublinguals when necessary. Hypercholesterolemia-- atorvastatin 80 mg. Chronic pain management --left shoulder pain, oxycodone/acetaminophen 5/325, 1 tablet by mouth every 4 hours when necessary. Total Time Spent: Greater than 30 minutes This includes examination of the patient, discharge planning, medication reconciliation, and communication with other providers. Discharge Instructions Please refer to the electronic Patient Visit Report (Discharge Instructions) for additional information. Additional Copies To Russ Álvarez MD
[2016-06-18 11:56] VITALS: BP 117/73; PULSE 69; TEMP 36.7; O2SAT 91
--- NOTE | 2016-06-18 12:35 | CARDIOLOGY CONSULTATION ---
DATE OF CONSULTATION: 06/18/2016 REASON FOR CONSULTATION: Chest pain. CONSULTATION REQUESTED BY: Dr. Harvey. PRIMARY MACHINE FUR CLEANER: Dr. Da Silva. HISTORY OF PRESENT ILLNESS: Mr. Clarke is a pleasant 46-year-old male with a history of coronary artery disease, status post prior NSTEMI in 2013 and more recently repeat stent placement to his proximal LAD who returned to the [facility] Emergency Department last night in the setting of acute onset of shortness of breath and chest tightness. The patient was previously admitted from 06/07/2016-06/09/2016 in the setting of recurrent chest discomfort. The patient had been having atypical chest symptoms for weeks to months, had undergone a stress echocardiogram which was indeterminate and as a result cardiac catheterization was planned. He underwent a cardiac cath at that time which showed a patent mid LAD stent from his prior NSTEMI in 2013, but with an intermediate lesion just proximal to his prior stent. FFR was done and was noted to be positive at 0.77 and as a result PCI was undertaken of his proximal to mid LAD. He had 1 drug-eluting stent placed to his proximal LAD (3.0 x 18 Xience DS, which was postdilated to 4.0 under ultrasonic guidance). Post-procedure, the patient did well and was discharged to home. Since being home, the patient states that he has been able to walk around without as much limiting dyspnea. States recently he was able to walk 2 miles up a hill and felt better than he had before. The night at admission, the patient thinks that he was woken up due to shortness of breath and felt like he was suffocating while lying flat. He got up and walked around his home and felt better, but whenever he lay down again felt short of breath and some chest tightness. He presented to the Emergency Department where initially he was hemodynamically stable, satting 99% on room air. His initial EKG was unremarkable and a point of care troponin was negative as well as subsequent troponins. He was placed on a nitro patch and had complete resolution of symptoms but was admitted for further observation. Since being admitted, the patient states he feels fine. No recurrent chest pain and at present he feels that he is at his baseline. PAST MEDICAL HISTORY: 1. Coronary artery disease as discussed above. 2. Asthma. 3. Hypertension. 4. Shoulder pain status post shoulder surgery. FAMILY HISTORY: Mother and father both had coronary artery disease at early age. SOCIAL HISTORY: Former smoker, been out of work on disability recently due to shoulder issues, previously worked at [employer]. Denies any significant alcohol or drugs. He is and lives with his . HOME MEDICATIONS: Include aspirin 81, atorvastatin 80, Plavix 75 mg daily, furosemide 20, isosorbide 120 daily, metoprolol 50 mg b.i.d., nitroglycerin tabs 0.4 mg p.r.n., Percocet and albuterol inhaler. ALLERGIES: SALICYLATE LEADS TO UPSET STOMACH. No other known drug allergies. REVIEW OF SYSTEMS: Ten point review of systems complete and otherwise negative as listed in HPI. PHYSICAL EXAMINATION: VITAL SIGNS: Temperature 36.8, heart rate 67, blood pressure 131/81, he is satting 97% on room air. GENERAL: The patient appears comfortable in no acute distress. HEENT: Sclerae are anicteric. Oropharynx is clear. Mucous membranes are moist. NECK: Supple with no lymphadenopathy. LUNGS: Clear to auscultation bilaterally. HEART: Regular rate and rhythm with no murmurs, rubs or gallops. ABDOMEN: Soft, nontender, nondistended with positive bowel sounds. EXTREMITIES: Warm. He has no significant lower extremity edema, has intact distal pulses including 2+ pulses at radial artery access site. SKIN: Shows no rashes or lesions. NEUROLOGIC: Grossly nonfocal. PSYCHIATRIC: He is alert and oriented x3 and mood and affect are appropriate. DATA: WBC 6.1, hemoglobin 14, platelets of 173. INR of 1.0. D-dimer of 240. Sodium 141, potassium 3.8, BUN 13, creatinine of 0.9. LFTs within normal limits. Point care troponin negative. Subsequent troponin less than 0.015. Chest x-ray shows no acute cardiopulmonary process. EKG shows normal sinus rhythm at a ventricular rate of 75 with no dynamic EKG changes or changes from prior EKGs. Telemetry, no events since admission. Echo from today reviewed shows normal biventricular function with an LVEF of 60%-65% and no regional wall motion abnormalities. There is no pericardial effusion. No valvular abnormalities. IMPRESSION AND PLAN: 1. Atypical chest pain/shortness of breath. 2. Coronary artery disease, status post recent percutaneous coronary intervention with drug-eluting stent to proximal left anterior descending. 3. Hypertension. 4. Anxiety. 5. Asthma. Overall, suspicion that patient's symptoms that led to readmission are due to his coronary artery disease is relatively low. Very low suspicion that current event represents acute stent thrombosis. Question whether or not current symptoms are related to his asthma, anxiety, may be some obstructive sleep apnea. As EKG, cardiac enzymes, repeat echo are unremarkable, I feel patient is low risk for acute cardiac events and can be further managed as an outpatient. From a cardiac standpoint, okay for discharge today with plans for followup with cardiology clinic and nurse practitioner Krysta Alexandre on Sunday. Would continue on current cardiac regimen on discharge including aspirin, Plavix and his current beta-gail long-acting nitrate, and high dose statin. I have encouraged the patient if were to have recurrent symptoms at night to try sublingual nitroglycerin as well as his albuterol inhaler. Thank you for allowing us to participate in the care of this patient. Please contact with any questions.
[2016-06-18 13:23] VITALS: BP 117/73; PULSE 69; TEMP 36.7; O2SAT 91
[2016-06-18] MEDS ORDERED: ATORVASTATIN 40 MG TAB PO SCH (21:00)
[2016-06-19] MEDS ORDERED: ASPIRIN 81 MG ECTAB PO SCH (09:00)
--- NOTE | 2016-06-21 23:21 | EMERGENCY ROOM VISIT NOTE ---
History First contact with patient: 03:32 Chief Complaint: SHORTNESS OF BREATH Stated Complaint: SOB, STENTED CORONARY ARTERY Nursing Triage Summary: pt reports he woke from sleep with SOB. Unable to take deep breaths. reports some CP. stent placed about a week ago History of Present Illness The patient is a 46 year old male who presents to the Emergency Department by private vehicle for evaluation of difficulty with breathing. He reports that he was awoken at 12:30 this morning with difficulty with breathing as well as pain with deep inspiration. Approximately one week ago, the patient had similar symptoms resulting in admission and catheterization with stenting performed 1. The patient has been taking his medications as prescribed. He reports the pain is not worsened with exertion. The pain is not reproducible. He rates his current discomfort as 2/10. He denies any fevers, chills, cough, hemoptysis, nausea, vomiting, or radiation of the pain. Review of Systems A complete 10-point Review of Systems was discussed with the patient, with pertinent positives and negatives listed in the History of Present Illness. All remaining Review of Systems questions can be considered negative unless otherwise specified. Past Medical/Surgical History Medical Problems: (1) Asthma (2) HTN (hypertension) (3) Hx of coronary artery disease (4) Left sided chest pain (5) Myocardial infarction (6) NSTEMI (non-ST elevated myocardial infarction) (7) paralyzed left ankle (8) PUD (peptic ulcer disease) (9) Shortness of breath (10) Tobacco abuse Surgical Problems: (1) H/O cardiac catheterization (2) H/O placement of stent in anterior descending branch of left coronary artery (3) S/P appendectomy (4) S/P surgical manipulation of ankle joint (5) S/P tonsillectomy (6) Stented coronary artery Family History Cancer Gallbladder disease Heart disease Hypertension Social History Smoking Status: Former Smoker Smokeless Tobacco Use: No Drug Use: none Marital Status: Housing Status: lives with family Occupation Status: employed Current/Historical Medications Scheduled Aspirin (Aspirin Ec), 81 MG PO DAILY Atorvastatin (Lipitor), 80 MG PO QPM Clopidogrel Bisulfate (Clopidogrel), 75 MG PO QAM Furosemide (Lasix), 20 MG PO DAILY Isosorbide Mononitrate Ext Rel (Imdur Ext Rel), 60 MG PO QAM Lisinopril (Prinivil), 10 MG PO QAM Metoprolol Tartrate (Metoprolol Tartrate), 50 MG PO BID Scheduled PRN Albuterol Sulfate (Proair Respiclick), 2 PUFFS INH QID PRN for SOB/Wheezing Nitroglycerin (Nitrostat), 0.4 MG UT UD PRN for Chest Pain Oxycodone/Acetaminophen 5MG/325MG (Percocet 5MG/325MG), 1-2 TABLETS PO Q6 PRN for Pain Allergies Coded Allergies: No Known Allergies (Unverified , 06/18/16) Physical Exam Vital Signs Date Time Temp Pulse Resp B/P Pulse Ox O2 Delivery O2 Flow Rate FiO2 06/18/16 05:29 72 20 154/98 94 Room Air 06/18/16 03:54 75 18 159/93 97 Room Air 06/18/16 03:01 97 Room Air 06/18/16 02:39 78 06/18/16 02:34 99 Room Air 06/18/16 02:34 97 Room Air 06/18/16 02:25 36.4 83 18 150/75 99 Room Air Pain Rating (0-10): 2 Physical Exam VITAL SIGNS - Vital signs and nursing notes were reviewed. GENERAL - 46-year-old male appearing his stated age who is in no acute distress. Communicates well with provider and answers questions appropriately. LUNGS - Chest wall symmetric without accessory muscle use, intercostals retractions, or central cyanosis. Normal vesicular breath sounds CTA B/L. No wheezes, rales, or rhonchi appreciated. CARDIAC - RRR with S1/S2. No murmur, rubs, or gallops appreciated. No reproducible tenderness to palpation appreciated over the anterior chest wall. ABDOMEN - Abdominal contour obese and without pulsations or visible masses. BS normoactive all four quadrants. No tenderness, palpable masses, hepatosplenomegaly, or ascites noted. EXTREMITIES - No clubbing or peripheral cyanosis. No pretibial edema present. +3 /5 radial and dorsalis pedis pulses palpated throughout. +5/5 strength noted in UE/LE bilaterally. NEUROLOGIC - Cranial nerves II through XII grossly intact. Sensory intact to light touch throughout. PSYCH - A&Ox3 and cooperates fully with examiner. Pt is very pleasant and interacts well with examiner. Medical Decision & Procedures ER Provider Diagnostic Interpretation: Radiological imaging and reports were reviewed by myself. Radiologist's Interpretation as follows: CHEST ONE VIEW PORTABLE HISTORY: Short of breath. COMPARISON: Chest 06/07/2016. FINDINGS: The lungs are clear. Cardiac silhouette is normal in size. No pleural effusions. No pneumothorax. IMPRESSION: No acute process. Laboratory Results 06/18/16 02:40 06/18/16 02:40 Test 06/18/16 02:40 06/18/16 03:03 Red Blood Count 4.54 M/uL (4.7-6.1) Mean Corpuscular Volume 84.8 fL (80-100) Mean Corpuscular Hemoglobin 30.8 pg (25-34) Mean Corpuscular Hemoglobin Concent 36.4 g/dl (32-36) RDW Standard Deviation 38.6 fL (36.4-46.3) RDW Coefficient of Variation 12.6 % (11.5-14.5) Mean Platelet Volume 10.7 fL (7.4-10.4) Prothrombin Time 10.0 SECONDS (9.0-12.0) Prothromb Time International Ratio 0.9 (0.9-1.1) Activated Partial Thromboplast Time 25.5 SECONDS (21.0-31.0) Partial Thromboplastin Ratio 1.0 D-Dimer 240 ug/L FEU (0-500) Anion Gap 10.0 mmol/L (3-11) Est Creatinine Clear Calc Drug Dose 120.0 ml/min Estimated GFR () 114.4 Estimated GFR (Non- 98.7 BUN/Creatinine Ratio 13.7 (10-20) Calcium Level 8.7 mg/dl (8.5-10.1) Total Bilirubin 0.7 mg/dl (0.2-1) Aspartate Amino Transf (AST/SGOT) 21 U/L (15-37) Alanine Aminotransferase (ALT/SGPT) 49 U/L (12-78) Alkaline Phosphatase 100 U/L (45-117) Total Protein 6.9 gm/dl (6.4-8.2) Albumin 3.7 gm/dl (3.4-5.0) Globulin 3.2 gm/dl (2.5-4.0) Albumin/Globulin Ratio 1.2 (0.9-2) Bedside Troponin I 0.000 ng/ml (0-0.045) Medications Administered Medications (Trade) Dose Ordered Sig/Michael Route Start Time Stop Time Status Last Admin Dose Admin Nitroglycerin (Nitroglycerin 2% Oint) 1 inch NOW ONCE EXT 06/18/16 03:45 06/18/16 03:46 DC 06/18/16 03:48 1 INCH Aspirin 243 mg 243 mg NOW STAT PO 06/18/16 03:42 06/18/16 03:44 DC 06/18/16 03:48 243 MG Sodium Chloride (Nss 1000ml) 1,000 ml @ 80 mls/hr [id number] STAT IV 06/18/16 03:42 06/18/16 07:38 DC 06/18/16 03:53 80 MLS/HR Procedure Patient was placed on 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 In addition, the patient's pulse oximetry was monitored throughout the entire stay. Any abnormalities or aberrancies were addressed appropriately. ECG Indication: chest pain Rate (beats per minute): 75 Rhythm: normal sinus Findings: no acute ischemic change, no ectopy Change: no significant change (from 06/08/2016.) ED Course Patient was seen and evaluated by myself. Recent admission notes were reviewed. Labs were drawn, saline lock in place. Patient received 243 mg aspirin orally. He received topical nitroglycerin paste. He was hydrated at her of 80 mL per hour. Chest x-ray and EKG had been obtained. Laboratory results demonstrate no acute leukocytosis, worrisome anemia, or bandemia. The patient has no significant electrolyte abnormalities. Cardiac enzymes were negative. Troponin was not elevated. On review the patient, he is symptom- free at this point. I did discuss the case with the [facility] hospitalist group. They suggested I speak with interventional cardiology. I did speak with Dr. Álvarez whom had actually performed the catheterization on the patient. Patient was eventually admitted to the hospitalist group for further evaluation and management. Patient admitted in stable condition. Medical Decision Given the patient's presentation and stated complaints, I did elect to perform the above-mentioned workup. The patient presents today with difficulty with breathing. The patient had a recent catheterization with stenting performed. His EKG is unchanged. Cardiac enzymes are negative. He became a symptomatically with nitroglycerin. This early concern for possibility of stent reocclusion. I did discuss the case with interventional cardiology. The patient was eventually admitted to the hospitalist program for further evaluation and management. Patient was admitted in fair condition. In the evaluation and treatment of this patient, the following differential diagnoses were considered: PR, ASC, Dysrhythmia, Angina, Mediastinitis, GERD, Esophagitis, PE, Pneumonia, Bronchitis, Costochondritis, Rib Fracture, Zoster. Impression Primary Impression: Chest pain Additional Impression: Stented coronary artery Departure Information Dispostion Admitted as an inpatient Condition FAIR Referrals Latisha Garcia MD (PCP) Forms HOME CARE DOCUMENTATION FORM, IMPORTANT VISIT INFORMATION Patient Instructions [facility] Problem Qualifiers Primary Impression: Chest pain Chest pain type: chest pain on breathing Qualified Codes: R07.1 - Chest pain on breathing
== END 2016-06-18 14:10 | disposition home or self-care (01) ==
LOC: ENRESERVDT → ENRESERVTM → C.EDB 02:21 → C.2E 06:14
PROVIDERS: ADMIT Hospitalist; ATTEND Hospitalist
DX: R07.89 Other chest pain (principal); J45.909 Unspecified asthma, uncomplicated; I10 Essential (primary) hypertension; I25.10 Atherosclerotic heart disease of native coronary artery without angina pectoris; E78.00 Pure hypercholesterolemia, unspecified; I25.2 Old myocardial infarction; Z87.11 Personal history of peptic ulcer disease; Z90.49 Acquired absence of other specified parts of digestive tract; Z87.891 Personal history of nicotine dependence; Z79.82 Long term (current) use of aspirin; Z82.49 Family history of ischemic heart disease and other diseases of the circulatory system

== ENCOUNTER 2016-06-18 21:37 | Emergency (ER) | payer OTHER ==
[~2016-06-18] VITALS: Ht 172.7 cm; Wt 110.4 kg
[2016-06-18 21:48] VITALS: TEMP 36.7; Ht 172.7 cm; Wt 110.4 kg
[2016-06-18 23:29] LABS: HEMATOCRIT 39.3 % (42-52); MEAN CELL VOLUME 87.3 fL (80-100); MEAN CORPUSCULAR HEMOGLOBIN 30.7 pg (25-34); MEAN CORPUSCULAR HGB CONC 35.1 g/dl (32-36); MEAN PLATELET VOLUME 11.4 fL (7.4-10.4); PLATELET COUNT 183 K/uL (130-400); WHITE BLOOD COUNT 7.59 K/uL (4.8-10.8)
[2016-06-18 23:36] LABS: BUN/CREATININE RATIO 12.6 (10-20); CALCIUM 8.9 mg/dl (8.5-10.1); POTASSIUM 3.9 mmol/L (3.5-5.1)
[2016-06-18 23:41] LABS: CKMB/CK RATIO 2.1 (0-3.0)
[2016-06-19 00:03] LABS: INR 0.9 (0.9-1.1)
[2016-06-19] MEDS ORDERED: ALBUT/IPRATROP 3MG/0.5MG NEB 3 ML VIAL INH STA (00:26)
--- NOTE | 2016-06-19 02:01 | EMERGENCY ROOM VISIT NOTE ---
History First contact with patient: 23:53 Chief Complaint: SHORTNESS OF BREATH Stated Complaint: SHORTNESS OF BREATH Nursing Triage Summary: pt reports 2 weeks ago cardiac stent placed , then started with sob 1 day ago seen in ED admitted for sob sent home today and started with increased sob tonight "feels like I am sufficating when I sit or lie" History of Present Illness The patient is a 46 year old male who presents to the Emergency Department by private vehicle for evaluation of his shortness of breath and difficulty with breathing. The patient had recent coronary artery stenting performed over one week ago. He was seen here last evening and admitted overnight. He had an echocardiogram performed and was discharged home feeling much better. He reports that approximately 2 hours prior to arrival he noticed the return of difficulty with breathing and pain with deep inspiration. He was concerned which prompted his visit today. He did try nitroglycerin at home which did not seem to help his symptoms. The patient did not try his inhalers. The patient denies any discomfort and rates his pain as 0/10. He denies any headaches, dizziness, lightheadedness, nausea, vomiting, abdominal pain, hematochezia, melena, hematuria, or dysuria. Review of Systems A complete 10-point Review of Systems was discussed with the patient, with pertinent positives and negatives listed in the History of Present Illness. All remaining Review of Systems questions can be considered negative unless otherwise specified. Past Medical/Surgical History Medical Problems: (1) Asthma (2) HTN (hypertension) (3) Hx of coronary artery disease (4) Left sided chest pain (5) Myocardial infarction (6) NSTEMI (non-ST elevated myocardial infarction) (7) paralyzed left ankle (8) PUD (peptic ulcer disease) (9) Shortness of breath (10) Tobacco abuse Surgical Problems: (1) H/O cardiac catheterization (2) H/O placement of stent in anterior descending branch of left coronary artery (3) S/P appendectomy (4) S/P surgical manipulation of ankle joint (5) S/P tonsillectomy (6) Stented coronary artery Family History Cancer Gallbladder disease Heart disease Hypertension Social History Smoking Status: Former Smoker Alcohol Use: none Drug Use: none Marital Status: Housing Status: lives with family Occupation Status: employed Current/Historical Medications Scheduled Aspirin (Aspirin Ec), 81 MG PO DAILY Atorvastatin (Lipitor), 80 MG PO QPM Clopidogrel Bisulfate (Clopidogrel), 75 MG PO QAM Furosemide (Lasix), 20 MG PO DAILY Isosorbide Mononitrate Ext Rel (Imdur Ext Rel), 60 MG PO QAM Lisinopril (Prinivil), 10 MG PO QAM Metoprolol Tartrate (Metoprolol Tartrate), 50 MG PO BID Scheduled PRN Albuterol Sulfate (Proair Respiclick), 2 PUFFS INH QID PRN for SOB/Wheezing Nitroglycerin (Nitrostat), 0.4 MG UT UD PRN for Chest Pain Oxycodone/Acetaminophen 5MG/325MG (Percocet 5MG/325MG), 1-2 TABLETS PO Q6 PRN for Pain Allergies Coded Allergies: No Known Allergies (Unverified , 06/18/16) Physical Exam Vital Signs Date Time Temp Pulse Resp B/P Pulse Ox O2 Delivery O2 Flow Rate FiO2 06/19/16 02:13 63 18 139/69 97 06/19/16 00:59 127/69 06/19/16 00:55 71 18 96 Room Air 06/18/16 23:59 142/77 06/18/16 23:55 67 24 98 06/18/16 23:52 67 18 127/71 97 Room Air 06/18/16 23:25 Room Air 06/18/16 22:47 72 18 144/86 95 Room Air 06/18/16 22:47 Room Air 06/18/16 22:35 76 06/18/16 21:48 36.7 73 20 157/98 98 Room Air Pain Rating (0-10): 0 Physical Exam VITAL SIGNS - Vital signs and nursing notes were reviewed. GENERAL - 46-year-old male appearing his stated age who is in no acute distress. Communicates well with provider and answers questions appropriately. LUNGS - Chest wall symmetric without accessory muscle use, intercostals retractions, or central cyanosis. Normal vesicular breath sounds CTA B/L. No wheezes, rales, or rhonchi appreciated. CARDIAC - RRR with S1/S2. No murmur, rubs, or gallops appreciated. No reproducible tenderness to palpation appreciated over the anterior chest wall. ABDOMEN - Abdominal contour flat and without pulsations or visible masses. BS normoactive all four quadrants. No tenderness, palpable masses, hepatosplenomegaly, or ascites noted. EXTREMITIES - No clubbing or peripheral cyanosis. No pretibial edema present. +3 /5 radial and dorsalis pedis pulses palpated throughout. +5/5 strength noted in UE/LE bilaterally. NEUROLOGIC - Cranial nerves II through XII grossly intact. Sensory intact to light touch throughout. PSYCH - A&Ox3 and cooperates fully with examiner. Pt is very pleasant and interacts well with examiner. Medical Decision & Procedures ER Provider Diagnostic Interpretation: Radiological imaging and reports were reviewed by myself. Radiologist's Interpretation as follows: SINGLE VIEW CHEST CLINICAL HISTORY: Dyspnea. FINDINGS: An AP, portable, upright chest radiograph is compared to study dated 06/18/2016 and correlated with chest CT dated 08/18/2009. The examination is degraded by portable technique an apical lordotic positioning. The heart is top normal for projection. The mediastinal contour is within normal limits. The lungs and pleural spaces are clear. No pneumothorax is seen. The bony thorax is grossly intact. IMPRESSION: No active disease in the chest. Laboratory Results 06/18/16 22:40 06/18/16 22:40 Test 06/18/16 22:40 06/18/16 23:28 Red Blood Count 4.50 M/uL (4.7-6.1) Mean Corpuscular Volume 87.3 fL (80-100) Mean Corpuscular Hemoglobin 30.7 pg (25-34) Mean Corpuscular Hemoglobin Concent 35.1 g/dl (32-36) RDW Standard Deviation 40.9 fL (36.4-46.3) RDW Coefficient of Variation 12.9 % (11.5-14.5) Mean Platelet Volume 11.4 fL (7.4-10.4) Prothrombin Time 10.0 SECONDS (9.0-12.0) Prothromb Time International Ratio 0.9 (0.9-1.1) Activated Partial Thromboplast Time 25.7 SECONDS (21.0-31.0) Partial Thromboplastin Ratio 1.0 Anion Gap 6.0 mmol/L (3-11) Est Creatinine Clear Calc Drug Dose 110.0 ml/min Estimated GFR () 103.4 Estimated GFR (Non- 89.2 BUN/Creatinine Ratio 12.6 (10-20) Calcium Level 8.9 mg/dl (8.5-10.1) Total Bilirubin 0.7 mg/dl (0.2-1) Aspartate Amino Transf (AST/SGOT) 22 U/L (15-37) Alanine Aminotransferase (ALT/SGPT) 47 U/L (12-78) Alkaline Phosphatase 101 U/L (45-117) Total Creatine Kinase 117 U/L (39-308) Creatine Kinase MB 2.4 ng/ml (0.5-3.6) Creatine Kinase MB Ratio 2.1 (0-3.0) Total Protein 7.4 gm/dl (6.4-8.2) Albumin 3.7 gm/dl (3.4-5.0) Globulin 3.7 gm/dl (2.5-4.0) Albumin/Globulin Ratio 1.0 (0.9-2) Bedside Troponin I 0.000 ng/ml (0-0.045) Medications Administered Medications (Trade) Dose Ordered Sig/Michael Route Start Time Stop Time Status Last Admin Dose Admin Albuterol/ Ipratropium (Duoneb) 3 ml NOW STAT INH 06/19/16 00:26 06/19/16 00:27 DC 06/19/16 00:46 3 ML Procedure Patient was placed on the supervisor calibration and monitored throughout the entire extent of their stay. In addition, the patient's pulse oximetry was monitored throughout the entire stay. Any abnormalities or aberrancies were addressed appropriately. ECG Indication: SOB/dyspnea Rate (beats per minute): 75 Rhythm: normal sinus Findings: no acute ischemic change, no ectopy Change: no significant change (from 06/18/2016.) ED Course Patient was seen and evaluated by myself. Labs were drawn, saline lock in place. EKG and chest x-rays were obtained. The patient was treated with 1 DuoNeb. Laboratory results demonstrate no acute leukocytosis, worrisome anemia , or bandemia. The patient has no significant electrolyte abnormalities. Cardiac enzymes are negative. Troponin is not elevated. Patient was reevaluated and reports feeling much better after DuoNeb. Patient was educated on today's findings. Case was discussed with my attending physician who agrees the diagnostic approach and treatment plan. 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 He has a scheduled appointment later this week. The patient was educated on worrisome symptoms for return visit to the emergency department. Patient discharged home in good condition. Medical Decision Given the patient's presentation and stated complaints, I did elect to perform the above-mentioned workup. The patient presents with shortness of breath. He was recently seen in this facility and had coronary artery stenting performed. He was admitted yesterday for similar symptoms which responded with nitroglycerin. He had an echo performed today as well as trended cardiac enzymes which are negative. His troponin is negative again today. He responded well to DuoNeb. This is much less likely related to coronary artery disease at this point. The patient will continue to follow with his primary care provider as well as farm truck driver from today's visit. He will certainly return in the setting of any changing or worsening symptoms. Patient discharged home afebrile and in good condition. In the evaluation and treatment of this patient, the following differential diagnoses were considered: IA, ASC, Dysrhythmia, Angina, Mediastinitis, GERD, Esophagitis, PE, Pneumonia, Bronchitis, Costochondritis, Rib Fracture, Zoster. Impression Primary Impression: Shortness of breath Departure Information Dispostion Home / Self-Care Condition GOOD Referrals Latisha Garcia MD (PCP) Patient Instructions My [facility] Additional Instructions You have been treated in the Emergency Department for your breathing difficulties. Laboratory results and Imaging Studies have ruled out any cardiac or pulmonary cause of your chest pain. For pain control, you can use the following [id number] medicines (if >12 yo): - Regular strength (325mg/tab) Tylenol (acetaminophen) 2 tabs every 4-6 hours as needed. Do not exceed 12 tablets in a 24 hour period. Avoid taking more than 4 grams (4000 mg) of Tylenol per day. This includes any other sources of acetaminophen you may take on a regular basis. - Regular strength (200 mg/tab) Advil (ibuprofen) 1-2 tabs every 4-6 hours as needed. Do not exceed a dose of 3200 mg per day. You should schedule a follow-up appointment with your Primary Care Provider in 2 -3 days for further evaluation from today's Emergency Department visit. Return to the Emergency Department if your current symptoms worsen despite treatment course outlined above, or if you develop any of the following symptoms : worsening chest pain, associated jaw/arm pain, nausea, dizziness, shortness of breath, bloody cough, or fainting.
[2016-06-19 02:13] VITALS: BP 139/69; PULSE 63; O2SAT 97
--- NOTE | 2016-06-19 07:43 | DIAGNOSTIC IMAGING REPORT ---
SINGLE VIEW CHEST CLINICAL HISTORY: Dyspnea. FINDINGS: An AP, portable, upright chest radiograph is compared to study dated 06/18/2016 and correlated with chest CT dated 08/18/2009. The examination is degraded by portable technique an apical lordotic positioning. The heart is top normal for projection. The mediastinal contour is within normal limits. The lungs and pleural spaces are clear. No pneumothorax is seen. The bony thorax is grossly intact. IMPRESSION: No active disease in the chest. Electronically signed by: Ethan Gentile M.D. 06/19/2016 7:42 AM Dictated Date/Time: 06/19/2016 7:41 AM
== END 2016-06-19 02:15 | disposition home or self-care (01) ==
LOC: C.EDB 21:38
DX: R06.02 Shortness of breath (principal); J45.909 Unspecified asthma, uncomplicated; I10 Essential (primary) hypertension; I25.10 Atherosclerotic heart disease of native coronary artery without angina pectoris; I25.2 Old myocardial infarction; Z87.11 Personal history of peptic ulcer disease; Z90.49 Acquired absence of other specified parts of digestive tract; Z87.891 Personal history of nicotine dependence; Z82.49 Family history of ischemic heart disease and other diseases of the circulatory system

== ENCOUNTER → 2017-02-02 | Outpatient (CLI) | payer OTHER ==
[~2017-02-02] MED LIST changes: -OXYC-57 PO
[2017-02-02 12:13] LABS: HEMATOCRIT 41.6 % (42-52); MEAN CELL VOLUME 87.4 fL (80-100); MEAN CORPUSCULAR HEMOGLOBIN 30.7 pg (25-34); MEAN CORPUSCULAR HGB CONC 35.1 g/dl (32-36); MEAN PLATELET VOLUME 11.3 fL (7.4-10.4); PLATELET COUNT 168 K/uL (130-400); RED BLOOD COUNT 4.76 M/uL (4.7-6.1); WHITE BLOOD COUNT 6.51 K/uL (4.8-10.8)
[2017-02-02 13:39] LABS: ALT/SGPT 34 U/L (12-78); AST/SGOT 19 U/L (15-37); BLOOD UREA NITROGEN 13 mg/dl (7-18); BUN/CREATININE RATIO 12.9 (10-20); CALCIUM 8.9 mg/dl (8.5-10.1); CARBON DIOXIDE 28 mmol/L (21-32); CHLORIDE 106 mmol/L (98-107); CHOLESTEROL 107 mg/dl (0-200); GLUCOSE 105 mg/dl (70-99); POTASSIUM 4.1 mmol/L (3.5-5.1); SODIUM 139 mmol/L (136-145); TRIGLYCERIDES 85 mg/dl (0-150); VERY LOW DENSITY LIPOPROT CALC 17 mg/dl
[2017-02-02 13:43] LABS: CHOLESTEROL/HDL RATIO 2.3; HDL CHOLESTEROL 47 mg/dl; LDL CHOLESTEROL CALCULATED 43 mg/dl
== END | disposition home or self-care (01) ==
LOC: C.LAB1850 11:25
PROVIDERS: ATTEND Internal Medicine Cardiovascular Disease
DX: I25.10 Atherosclerotic heart disease of native coronary artery without angina pectoris (principal); R07.9 Chest pain, unspecified; I10 Essential (primary) hypertension; R06.09 Other forms of dyspnea; R60.9 Edema, unspecified

== ENCOUNTER 2017-03-21 18:34 | Emergency (ER) | payer OTHER ==
[~2017-03-21] VITALS: Ht 172.7 cm; Wt 106.6 kg
[2017-03-21 18:43] VITALS: TEMP 36.7; Ht 172.7 cm; Wt 106.6 kg
--- NOTE | 2017-03-21 19:19 | EMERGENCY ROOM VISIT NOTE ---
History Report prepared by Jace: Ravi Bal Under the Supervision of: Dr. Belia Mcgowan M.D. First contact with patient: 19:06 Chief Complaint: BLEEDING Stated Complaint: BLEEDING Nursing Triage Summary: Pt reports pain in left testicle for 1 yr. Today urinated today and urine was orange, continued to have bright red blood dripping into toilet from penis. Pt states, "It wouldn't quit for awhile. It takes me 10 mins to get home and I could feel it the whole time. I am on blood thinners for a stent. I take Plavix. I had blood in my stools a month ago." History of Present Illness The patient is a 46 year old male who presents to the Emergency Room with complaints of an episode of bleeding from his penis that occurred earlier today. He says that he was going to the bathroom like normal, but as he started urinating, he noticed burning through his penis, and then after he was done urinating, he saw blood dripping from his penis into the toilet. The patient states that he is still having some burning and penis pain with movement, and currently when he is not moving, he does not have any pain. He denies any scrotum pain or swelling, in addition to any nausea, fevers, back pain, or trauma. He adds that he has a history of a heart attack with a stent placement, as well as hypertension. He is a non-smoker. The patient states that he takes Plavix and aspirin. Source of History: patient Onset: Earlier today Position: other (penis) Quality: other (bleeding) Timing: other (episode) Associated Symptoms: + urinary symptoms (burning), No fevers, No nausea, No back pain Note: Associated symptoms: Penis pain, worsened with movement. Denies scrotum pain or swelling, trauma. Review of Systems See HPI for pertinent positives & negatives. A total of 10 systems reviewed and were otherwise negative. Past Medical & Surgical Medical Problems: (1) Asthma (2) HTN (hypertension) (3) Hx of coronary artery disease (4) Left sided chest pain (5) Myocardial infarction (6) NSTEMI (non-ST elevated myocardial infarction) (7) paralyzed left ankle (8) PUD (peptic ulcer disease) (9) Shortness of breath (10) Tobacco abuse Surgical Problems: (1) H/O cardiac catheterization (2) H/O placement of stent in anterior descending branch of left coronary artery (3) S/P appendectomy (4) S/P surgical manipulation of ankle joint (5) S/P tonsillectomy (6) Stented coronary artery Family History Cancer Gallbladder disease Heart disease Hypertension Social History Smoking Status: Former Smoker Alcohol Use: none Drug Use: none Marital Status: Housing Status: lives with family Occupation Status: employed Current/Historical Medications Scheduled Aspirin (Aspirin Ec), 81 MG PO DAILY Atorvastatin (Lipitor), 80 MG PO QPM Clopidogrel Bisulfate (Clopidogrel), 75 MG PO QAM Furosemide (Lasix), 20 MG PO DAILY Isosorbide Mononitrate Ext Rel (Imdur Ext Rel), 60 MG PO QAM Lisinopril (Prinivil), 10 MG PO QAM Metoprolol Tartrate (Metoprolol Tartrate), 50 MG PO BID Scheduled PRN Albuterol Sulfate (Proair Respiclick), 2 PUFFS INH QID PRN for SOB/Wheezing Nitroglycerin (Nitrostat), 0.4 MG UT UD PRN for Chest Pain Allergies Coded Allergies: No Known Allergies (Unverified , 03/21/17) Physical Exam Vital Signs Date Time Temp Pulse Resp B/P (MAP) Pulse Ox O2 Delivery O2 Flow Rate FiO2 03/21/17 21:19 60 16 124/81 95 03/21/17 18:43 36.7 69 18 162/93 98 Room Air Physical Exam Vital signs reviewed. General: Well-appearing 46 year old male, in no significant distress. HEENT: No scleral icterus, PERRLA, neck supple. Atraumatic. Cardiovascular: Regular rate and rhythm, no extra sounds. Pulmonary: Clear to auscultation bilaterally, normal work of breathing. Abdomen: Soft, nontender, nondistended, positive bowel sounds. : Circumcised, tender to the epididymis bilaterally. No swelling or tenderness to the testicle. No bleeding appreciated. Musculoskeletal: Atraumatic, no peripheral edema. Neurologic: Patient awake alert and oriented x 3. Skin: Warm, dry, no rash Medical Decision & Procedures ER Provider Diagnostic Interpretation: US results as stated below per my review and radiologist interpretation: (TESTICULAR) SCROTUM-CONT CLINICAL HISTORY: 46 years-old Male with hematuria, scrotal pain. Acute hematuria with scrotal pain COMPARISON STUDY: Renal ultrasound of same day TECHNIQUE: Real-time, grayscale, and color Doppler sonography of the testes and scrotum is performed. Images are reviewed in the transverse and longitudinal planes. FINDINGS: RIGHT HEMISCROTUM: The right testis measures 4.6 x 2.2 x 3.1 cm and the parenchyma appears unremarkable. No intratesticular mass is seen. Normal-appearing arterial inflow is present within the right testicle. The right epididymal head appears normal. Small hydrocele is identified. LEFT HEMISCROTUM: The left testis measures 4.3 x 2.1 x 3.0 cm and the parenchyma appears unremarkable. No intratesticular mass is seen. Normal-appearing arterial inflow is present within the left testicle. The left epididymal head demonstrates multiple subcentimeter cysts, largest of which measures 7 mm. No varicocele or hydrocele is identified. IMPRESSION: 1. Unremarkable sonographic appearance of the bilateral testicles without evidence of torsion or mass. 2. Small right-sided hydrocele. 3. Multiple subcentimeter left epididymal head cysts. The above report was generated using voice recognition software. It may contain grammatical, syntax or spelling errors. Electronically signed by: Az Marinelli M.D. 03/21/2017 9:05 PM (RENAL)RETROPERITON COMP HISTORY: 46 years-old Male hematuria acute hematuria COMPARISON: None available TECHNIQUE: Multiple real-time sonographic images of the kidneys and urinary bladder were obtained assessing grayscale appearance and color flow FINDINGS: The right kidney measures 10.9 x 6.4 x 7.1 cm and is unremarkable without hydronephrosis, renal calculi or focal mass lesion. Cortical medullary differentiation is preserved. The left kidney measures 11.5 x 6.1 x 6.4 cm and is unremarkable without hydronephrosis, renal calculi or focal mass lesion. The urinary bladder is only partially distended and is within normal limits with bilateral ureteral jets documented. IMPRESSION: 1. Unremarkable Sonographic appearance of the bilateral kidneys without renal calculi or hydronephrosis. 2. Partially distended urinary bladder is also unremarkable. The above report was generated using voice recognition software. It may contain grammatical, syntax or spelling errors. Electronically signed by: Az Marinelli M.D. 03/21/2017 8:59 PM Dictated Date/Time: 03/21/2017 8:57 PM Laboratory Results 03/21/17 19:50 Red Blood Count 4.42, Mean Corpuscular Volume 88.2, Mean Corpuscular Hemoglobin 30.8, Mean Corpuscular Hemoglobin Concent 34.9, Mean Platelet Volume 11.0, Neutrophils (%) (Auto) 51.7, Lymphocytes (%) (Auto) 36.9, Monocytes (%) (Auto) 7.7, Eosinophils (%) (Auto) 3.0, Basophils (%) (Auto) 0.5, Neutrophils # (Auto) 3.07, Lymphocytes # (Auto) 2.19, Monocytes # (Auto) 0.46, Eosinophils # (Auto) 0.18, Basophils # (Auto) 0.03 03/21/17 19:50 Test 03/21/17 19:50 White Blood Count 5.94 K/uL (4.8-10.8) Red Blood Count 4.42 M/uL (4.7-6.1) Hemoglobin 13.6 g/dL (14.0-18.0) Hematocrit 39.0 % (42-52) Mean Corpuscular Volume 88.2 fL (80-100) Mean Corpuscular Hemoglobin 30.8 pg (25-34) Mean Corpuscular Hemoglobin Concent 34.9 g/dl (32-36) Platelet Count 153 K/uL (130-400) Mean Platelet Volume 11.0 fL (7.4-10.4) Neutrophils (%) (Auto) 51.7 % Lymphocytes (%) (Auto) 36.9 % Monocytes (%) (Auto) 7.7 % Eosinophils (%) (Auto) 3.0 % Basophils (%) (Auto) 0.5 % Neutrophils # (Auto) 3.07 K/uL (1.4-6.5) Lymphocytes # (Auto) 2.19 K/uL (1.2-3.4) Monocytes # (Auto) 0.46 K/uL (0.11-0.59) Eosinophils # (Auto) 0.18 K/uL (0-0.5) Basophils # (Auto) 0.03 K/uL (0-0.2) RDW Standard Deviation 40.6 fL (36.4-46.3) RDW Coefficient of Variation 12.5 % (11.5-14.5) Immature Granulocyte % (Auto) 0.2 % Immature Granulocyte # (Auto) 0.01 K/uL (0.00-0.02) Urine Color YELLOW Urine Appearance CLEAR (CLEAR) Urine pH 6.0 (4.5-7.5) Urine Specific [place] 1.024 (1.000-1.030) Urine Protein NEG (NEG) Urine Glucose (UA) NEG (NEG) Urine Ketones NEG (NEG) Urine Occult Blood 2+ (NEG) Urine Nitrite NEG (NEG) Urine Bilirubin NEG (NEG) Urine Urobilinogen NEG (NEG) Urine Leukocyte Esterase NEG (NEG) Urine WBC (Auto) 1-5 /hpf (0-5) Urine RBC (Auto) >30 /hpf (0-4) Urine Hyaline Casts (Auto) 1-5 /lpf (0-5) Urine Epithelial Cells (Auto) 0-5 /lpf (0-5) Urine Bacteria (Auto) NEG (NEG) Anion Gap 8.0 mmol/L (3-11) Est Creatinine Clear Calc Drug Dose 102.0 ml/min Estimated GFR () 96.4 Estimated GFR (Non- 83.2 BUN/Creatinine Ratio 14.3 (10-20) Calcium Level 8.8 mg/dl (8.5-10.1) Total Bilirubin 1.2 mg/dl (0.2-1) Direct Bilirubin 0.3 mg/dl (0-0.2) Aspartate Amino Transf (AST/SGOT) 25 U/L (15-37) Alanine Aminotransferase (ALT/SGPT) 37 U/L (12-78) Alkaline Phosphatase 118 U/L (45-117) Total Protein 6.8 gm/dl (6.4-8.2) Albumin 3.6 gm/dl (3.4-5.0) Laboratory results per my review. ED Course 1912: Past medical records reviewed. The patient was evaluated in room B12B. A complete history and physical examination was performed. 2140: Upon reevaluation, the patient appeared to have improvement of his symptoms. I discussed findings with him. He verbalized agreement of the treatment plan. He was discharged home. Medical Decision Differential diagnosis: UTI, kidney stone, bladder mass, epididymitis, pyelonephritis, cystitis. This pt was evaluated and appeared to be in no distress. IV access was obtained and lab work was drawn. US of retroperitoneum and scrotum are negative. Lab work is unrevealing. UA is significant for blood. Pt was referred to urology for f/u evaluation. He has expressed an understanding and agrees. CM will assist in making the appt. Medication Reconcilliation Current Medication List: was personally reviewed by me Blood Pressure Screening Patient's blood pressure: Normal blood pressure Impression Primary Impression: Hematuria Additional Impression: Dysuria Scribe Attestation The scribe's documentation has been prepared under my direction and personally reviewed by me in its entirety. I confirm that the note above accurately reflects all work, treatment, procedures, and medical decision making performed by me. Departure Information Dispostion Home / Self-Care Referrals Latisha Garcia MD (PCP) Alvin Rodgers MD, Urology Patient Instructions [facility] Additional Instructions Diagnosis: Hematuria, dysuria Please drink plenty of clear fluids Case management will help arrange for follow-up with urology within the next several days. You should receive a phone call tomorrow with an appointment time. Return to the emergency department for worsening of symptoms or any medical concerns. Problem Qualifiers
[2017-03-21 20:01] LABS: BASO % 0.5 %; BASO ABS # 0.03 K/uL (0-0.2); COMPLETE YES; IG% 0.2 %; LYMPH % 36.9 %; LYMPH ABS # 2.19 K/uL (1.2-3.4); MEAN CELL VOLUME 88.2 fL (80-100); MEAN CORPUSCULAR HEMOGLOBIN 30.8 pg (25-34); MEAN CORPUSCULAR HGB CONC 34.9 g/dl (32-36); MONO % 7.7 %; NEUT % 51.7 %; PLATELET COUNT 153 K/uL (130-400); RED BLOOD COUNT 4.42 M/uL (4.7-6.1); WHITE BLOOD COUNT 5.94 K/uL (4.8-10.8)
[2017-03-21 20:03] LABS: REVIEW REQ? NO; URINE APPEARANCE CLEAR (CLEAR); URINE BILIRUBIN NEG (NEG); URINE COLOR YELLOW; URINE EPITHELIAL CELL AUTO 0-5 /lpf (0-5); URINE NITRITE NEG (NEG); URINE SPECIFIC GRAVITY 1.024 (1.000-1.030); UROBILINOGEN NEG (NEG); ZZUR CULT IF INDIC CLEAN CATCH NO
[2017-03-21 20:04] LABS: MANUAL MICROSCOPIC REQUIRED? NO
[2017-03-21 20:21] LABS: BUN/CREATININE RATIO 14.3 (10-20); CALCIUM 8.8 mg/dl (8.5-10.1); CREATININE 1.06 mg/dl (0.60-1.40); POTASSIUM 3.9 mmol/L (3.5-5.1)
--- NOTE | 2017-03-21 21:01 | DIAGNOSTIC IMAGING REPORT ---
(RENAL)RETROPERITON COMP HISTORY: 46 years-old Male hematuria acute hematuria COMPARISON: None available TECHNIQUE: Multiple real-time sonographic images of the kidneys and urinary bladder were obtained assessing grayscale appearance and color flow FINDINGS: The right kidney measures 10.9 x 6.4 x 7.1 cm and is unremarkable without hydronephrosis, renal calculi or focal mass lesion. Cortical medullary differentiation is preserved. The left kidney measures 11.5 x 6.1 x 6.4 cm and is unremarkable without hydronephrosis, renal calculi or focal mass lesion. The urinary bladder is only partially distended and is within normal limits with bilateral ureteral jets documented. IMPRESSION: 1. Unremarkable Sonographic appearance of the bilateral kidneys without renal calculi or hydronephrosis. 2. Partially distended urinary bladder is also unremarkable. The above report was generated using voice recognition software. It may contain grammatical, syntax or spelling errors. Electronically signed by: Az Marinelli M.D. 03/21/2017 8:59 PM Dictated Date/Time: 03/21/2017 8:57 PM
--- NOTE | 2017-03-21 21:07 | DIAGNOSTIC IMAGING REPORT ---
(TESTICULAR) SCROTUM-CONT CLINICAL HISTORY: 46 years-old Male with hematuria, scrotal pain. Acute hematuria with scrotal pain COMPARISON STUDY: Renal ultrasound of same day TECHNIQUE: Real-time, grayscale, and color Doppler sonography of the testes and scrotum is performed. Images are reviewed in the transverse and longitudinal planes. FINDINGS: RIGHT HEMISCROTUM: The right testis measures 4.6 x 2.2 x 3.1 cm and the parenchyma appears unremarkable. No intratesticular mass is seen. Normal-appearing arterial inflow is present within the right testicle. The right epididymal head appears normal. Small hydrocele is identified. LEFT HEMISCROTUM: The left testis measures 4.3 x 2.1 x 3.0 cm and the parenchyma appears unremarkable. No intratesticular mass is seen. Normal-appearing arterial inflow is present within the left testicle. The left epididymal head demonstrates multiple subcentimeter cysts, largest of which measures 7 mm. No varicocele or hydrocele is identified. IMPRESSION: 1. Unremarkable sonographic appearance of the bilateral testicles without evidence of torsion or mass. 2. Small right-sided hydrocele. 3. Multiple subcentimeter left epididymal head cysts. The above report was generated using voice recognition software. It may contain grammatical, syntax or spelling errors. Electronically signed by: Az Marinelli M.D. 03/21/2017 9:05 PM Dictated Date/Time: 03/21/2017 9:02 PM
[2017-03-21 21:19] VITALS: BP 124/81; PULSE 60; O2SAT 95
== END 2017-03-21 22:44 | disposition home or self-care (01) ==
LOC: C.EDB 18:34
DX: R31.9 Hematuria, unspecified (principal); R30.0 Dysuria; Z95.5 Presence of coronary angioplasty implant and graft; Z79.01 Long term (current) use of anticoagulants; I25.2 Old myocardial infarction; Z79.82 Long term (current) use of aspirin; J45.909 Unspecified asthma, uncomplicated; I10 Essential (primary) hypertension; Z87.891 Personal history of nicotine dependence; Z80.9 Family history of malignant neoplasm, unspecified; Z82.49 Family history of ischemic heart disease and other diseases of the circulatory system; Z79.899 Other long term (current) drug therapy

== ENCOUNTER → 2017-03-29 | Outpatient (CLI) | payer OTHER | END | disposition home or self-care (01) | LOC: C.PATHSPEC 17:09 | PROVIDERS: ATTEND Urology | DX: R31.0 Gross hematuria (principal); R30.0 Dysuria ==

== ENCOUNTER → 2017-04-02 | Outpatient (CLI) | payer OTHER ==
[2017-04-02 12:37] LABS: ALT/SGPT 29 U/L (12-78); BLOOD UREA NITROGEN 10 mg/dl (7-18); BUN/CREATININE RATIO 10.2 (10-20); CALCIUM 8.8 mg/dl (8.5-10.1); CARBON DIOXIDE 28 mmol/L (21-32); CHLORIDE 102 mmol/L (98-107); CREATININE 1.02 mg/dl (0.60-1.40); GLUCOSE 145 mg/dl (70-99); POTASSIUM 3.9 mmol/L (3.5-5.1); SODIUM 136 mmol/L (136-145)
[2017-04-02 12:42] LABS: ALB/GLOB RATIO 1.1 (0.9-2); ALKALINE PHOSPHATASE 113 U/L (45-117); AST/SGOT 17 U/L (15-37); PROSTATE SPECIFIC ANTIGEN 0.365 ng/ml (0.000-4.000)
== END | disposition home or self-care (01) ==
LOC: C.LAB1850 09:49
PROVIDERS: ATTEND Urology
DX: R31.0 Gross hematuria (principal); R30.0 Dysuria; N40.1 Benign prostatic hyperplasia with lower urinary tract symptoms

== ENCOUNTER → 2017-04-09 | Outpatient (CLI) | payer OTHER ==
[~2017-04-09] MED LIST changes: +OPTIRAY 320 IV PRN
--- NOTE | 2017-04-09 11:40 | DIAGNOSTIC IMAGING REPORT ---
ABD/PELVIS COMBO HISTORY: 46 years-old Male R31.0 Gross [id number] [id number] acute hematuria without history of nephrolithiasis COMPARISON: Testicular ultrasound and renal ultrasound 03/21/2017, CT abdomen and pelvis 08/18/2009. TECHNIQUE: Multiple axial CT images of the abdomen and pelvis were obtained both with and without the use of 93 mL Optiray 320 IV contrast. Delayed images were obtained according to hematuria protocol. A dose lowering technique was used consistent with the principals of LOC. FINDINGS: The lung bases are generally clear. No pneumatosis or pneumoperitoneum identified. Imaged inferior cardiac chambers are unremarkable. Coronary arterial calcifications are noted. The liver, spleen, gallbladder, pancreas and adrenal glands are within normal limits. No renal calculi identified on the noncontrast scan. Minimal nonspecific bilateral perinephric stranding. No ureteral or bladder calculi identified. Prostate is normal in size. No focal filling defects identified within the ureters or renal collecting systems. The distal left ureter is not well opacified. Urinary bladder is only partially distended. Abdominal aorta is normal in course and caliber. No bulky adenopathy. No bowel obstruction or focal bowel wall thickening. Mild colonic diverticulosis without diverticulitis. Appendix appears to be surgically absent. Soft tissues are unremarkable. Bones appear intact. IMPRESSION: 1. No acute intra-abdominal or intrapelvic abnormality identified. No renal calculi or hydronephrosis. 2. Mild nonspecific bilateral perinephric stranding. 3. Mild colonic diverticulosis without diverticulitis. The above report was generated using voice recognition software. It may contain grammatical, syntax or spelling errors. Electronically signed by: Az Marinelli M.D. 04/09/2017 11:39 AM Dictated Date/Time: 04/09/2017 10:20 AM
== END | disposition home or self-care (01) ==
LOC: C.CTS 09:00
PROVIDERS: ATTEND Urology
DX: R31.0 Gross hematuria (principal); R30.0 Dysuria

== ENCOUNTER → 2017-08-22 | Outpatient (CLI) | payer OTHER ==
[~2017-08-22] MED LIST changes: +CITA20TA4 PO; +CLOP1TAB15 PO; -FURO-85 PO; +IMD/2 PO; -OPTIRAY 320 IV PRN; -PLV75 PO; +TERA5CAP PO
[2017-08-22 10:09] LABS: HEMATOCRIT 41.8 % (42-52); HEMOGLOBIN 14.6 g/dL (14.0-18.0); MEAN CELL VOLUME 86.2 fL (80-100); MEAN CORPUSCULAR HEMOGLOBIN 30.1 pg (25-34); MEAN CORPUSCULAR HGB CONC 34.9 g/dl (32-36); MEAN PLATELET VOLUME 10.8 fL (7.4-10.4); PLATELET COUNT 163 K/uL (130-400); RED CELL DISTRIBUTION WIDTH CV 12.8 % (11.5-14.5); RED CELL DISTRIBUTION WIDTH SD 40.5 fL (36.4-46.3); WHITE BLOOD COUNT 7.07 K/uL (4.8-10.8)
[2017-08-22 10:25] LABS: ALBUMIN 3.7 gm/dl (3.4-5.0); ALT/SGPT 35 U/L (12-78); AST/SGOT 25 U/L (15-37); BLOOD UREA NITROGEN 14 mg/dl (7-18); CALCIUM 8.5 mg/dl (8.5-10.1); CARBON DIOXIDE 29 mmol/L (21-32); CREATININE 0.96 mg/dl (0.60-1.40); GLUCOSE 110 mg/dl (70-99); POTASSIUM 4.2 mmol/L (3.5-5.1); SODIUM 139 mmol/L (136-145)
[2017-08-22 10:27] LABS: ALKALINE PHOSPHATASE 103 U/L (45-117); TOTAL PROTEIN 6.7 gm/dl (6.4-8.2)
== END | disposition home or self-care (01) ==
LOC: C.LAB1850 09:16
PROVIDERS: ATTEND Physician Assistant
DX: I25.10 Atherosclerotic heart disease of native coronary artery without angina pectoris (principal)

== ENCOUNTER 2017-11-24 22:57 | Emergency (ER) | payer OTHER ==
[~2017-11-24] VITALS: Ht 172.7 cm; Wt 105.5 kg
[2017-11-24 23:02] VITALS: BP 143/82; TEMP 36.7; Ht 172.7 cm; Wt 105.5 kg
[2017-11-24] MEDS ORDERED: NORCO 5/325MG HOME PACK PO ONE (23:15)
[2017-11-24] MEDS ORDERED: SEPTRA DS HOME PACK 1 EA VIAL PO ONE (23:15)
[2017-11-24] MEDS ORDERED: CEPHALEXIN 500MG HOME PACK 1 EA BTL PO ONE (23:15)
[2017-11-24] MEDS ORDERED: SULF800T23 PO (23:25)
[2017-11-24] MEDS ORDERED: CEPH500C PO (23:25)
[2017-11-24 23:47] VITALS: PULSE 70; O2SAT 99
--- NOTE | 2017-11-25 23:33 | EMERGENCY ROOM VISIT NOTE ---
History First contact with patient: 23:04 Chief Complaint: WOUND INFECTION Stated Complaint: LEFT LEG INFECTION Nursing Triage Summary: pt reports several days ago was scraped in LLE by a mower deck. now with increased pain and redness History of Present Illness The patient is a 47 year old male who presents to the Emergency Room with complaints of pain and swelling to his left lower leg. The patient states that he scraped his leg on the mower deck of a lawnmower 3 days ago and has had slowly worsening symptoms. The patient was putting an antibiotic ointment and a Band-Aid over scrape, however he started to notice some yellow/green drainage and discharge. Patient is not diabetic. He has not had fever or chills. He rates his current discomfort a 3/10. He is reportedly up-to-date on his tetanus. Review of Systems More than 10 systems were reviewed and otherwise negative with the exception of history of present illness. Past Medical/Surgical History Medical Problems: (1) Asthma (2) HTN (hypertension) (3) Hx of coronary artery disease (4) Left sided chest pain (5) Myocardial infarction (6) NSTEMI (non-ST elevated myocardial infarction) (7) paralyzed left ankle (8) PUD (peptic ulcer disease) (9) Shortness of breath (10) Tobacco abuse Surgical Problems: (1) H/O cardiac catheterization (2) H/O placement of stent in anterior descending branch of left coronary artery (3) S/P appendectomy (4) S/P surgical manipulation of ankle joint (5) S/P tonsillectomy (6) Stented coronary artery Family History Cancer Gallbladder disease Heart disease Hypertension Social History Smoking Status: Never Smoker Alcohol Use: none Drug Use: none Marital Status: Housing Status: lives with family Occupation Status: employed Current/Historical Medications Scheduled Aspirin (Aspirin Ec), 81 MG PO QAM Atorvastatin (Lipitor), 80 MG PO QPM Cephalexin Monohydrate (Keflex), 500 MG PO TID Citalopram Hydrobromide (Citalopram Hydrobromide), 20 MG PO QPM Clopidogrel (Plavix), 75 MG PO QAM Isosorbide Mononitrate Ext Rel (Imdur Ext Rel), 60 MG PO QAM Lisinopril (Prinivil), 10 MG PO QAM Metoprolol Tartrate (Metoprolol Tartrate), 50 MG PO BID Sulfa/Trimethoprim (Bactrim Ds 800MG/160MG), 1 TAB PO BID Terazosin (Hytrin), 5 MG PO HS Scheduled PRN Albuterol Sulfate (Proair Respiclick), 2 PUFFS INH QID PRN for SOB/Wheezing Loperamide Hcl (Imodium), 2 MG PO BID-TID PRN for Diarrhea Nitroglycerin (Nitrostat), 0.4 MG UT UD PRN for Chest Pain Physical Exam Vital Signs Date Time Temp Pulse Resp B/P (MAP) Pulse Ox O2 Delivery O2 Flow Rate FiO2 11/24/17 23:47 70 20 99 11/24/17 23:02 36.7 75 18 143/82 95 Room Air Physical Exam VITALS: Vitals are noted on the nurse's note and reviewed by myself. Vital signs stable. GENERAL: Well-developed, well-nourished, white male, who is in no acute distress and resting comfortably. Patient is cooperative with the examination. HEAD: Normocephalic atraumatic. HEART: Regular rate and rhythm without murmurs gallops or rubs. LUNGS: Clear to auscultation bilaterally without wheezes, rales or rhonchi. No retractions or accessory muscle use. MUSCULOSKELETAL: Superficial abrasion is noted to the left lower extremity measuring approximately 3 x 2 cm in dimension. There is surrounding cellulitis measuring additional 3-4 cm around this. There is no lymphangitic streaking. NEURO: Patient was alert and oriented to person place and time. CN II through XII grossly intact. Medical Decision & Procedures Medications Administered Medications (Trade) Dose Ordered Sig/Michael Route Start Time Stop Time Status Last Admin Dose Admin Trimethoprim/ Sulfamethoxazole (Sulfameth/ Trimeth Ds 800/ 160MG Home Pack) 1 homepack UD ONCE PO 11/24/17 23:15 11/24/17 23:16 DC 11/24/17 23:40 1 HOMEPACK Cephalexin Monohydrate (Keflex 500MG Home Pack) 1 homepack NOW ONCE PO 11/24/17 23:15 11/24/17 23:16 DC 11/24/17 23:41 1 HOMEPACK Acetaminophen/ Hydrocodone Bitart ([place] 5/325mg Home Pack) 1 homepack UD ONCE PO 11/24/17 23:15 11/24/17 23:16 DC 11/24/17 23:[address] [facility] ED Course Physical exam and history were performed. Nursing notes, EMR, and Medication List were personally reviewed. Patient appears to have a left lower leg cellulitis across the anterior tibia. The patient does not appear toxic and there is no drainage or discharge for culture. The patient is not diabetic. I discussed options of care with the patient and will give him a course of Bactrim and Keflex. Patient will need close follow-up, either with his primary care physician or back in the emergency department in 2-3 days for recheck. He was asked to return sooner if he develops any worsening symptoms. The patient was pleased with this plan and voiced understanding. He is given further discharge instructions as below. The chart was completed utilizing [employer] Speech Voice Recognition Software. Grammatical errors, random word insertions, pronoun errors, and incomplete sentences are an occasional consequence of this system due to software limitations, ambient noise, and hardware issues. Any formal questions or concerns about the content, text, or information contained within the body of this dictation should be directly addressed to the provider for clarification. . Medical Decision Differential diagnosis: Etiologies such as cellulitis, abscess, MRSA infection, DVT, necrotizing fasciitis, dermatitis, drug eruption, as well as others were entertained.. Impression Primary Impression: Cellulitis of left leg Departure Information Dispostion Home / Self-Care Condition GOOD Prescriptions Cephalexin Monohydrate (Keflex) 500 Mg Cap 500 MG PO TID for 9 Days, #27 CAP Prov: Ibrahima Beckman PA-C 11/24/17 Sulfa/Trimethoprim (Bactrim Ds 800MG/160MG) Tab 1 TAB PO BID for 9 Days, #18 TAB Prov: Ibrahima Beckman PA-C 11/24/17 Forms HOME CARE DOCUMENTATION FORM, IMPORTANT VISIT INFORMATION Patient Instructions My [facility] Additional Instructions You were seen and evaluated today on an emergency basis only. This is not a substitute for, or an effort to provide, complete comprehensive medical care. It is not possible to recognize and treat all injuries or illnesses in a single emergency department visit. For this reason it is recommended that you followup with your primary care physician in 2-3 days for recheck. If you are unable to be seen by her PCP please return to the ER. Trimethoprim-Sulfamethoxazole(Bactrim DS): Take one pill twice daily for 10 days for your skin infection. All antibiotics can cause diarrhea. If this occurs and you feel worse or it does not resolve in 1-2 days follow up with your doctor or return to the Emergency Department as this could be signs of serious underlying problems. Any medication can cause an allergic reaction, stop the pills immediately and return to the ER for rash, hives, breathing difficulties, or swelling. Cephalexin(Keflex) 500mg: Take one pill 3 times daily for 10 days for your skin infection. All antibiotics can cause diarrhea. If this occurs and you feel worse or it does not resolve in 1-2 days follow up with your doctor or return to the Emergency Department as this could be signs of serious underlying problems. Any medication can cause an allergic reaction, stop the pills immediately and return to the ER for rash, hives, breathing difficulties, or swelling. [place] (hydrocodone/acetaminophen) 5/325 mg(homepack): Take ONE pill by mouth every 6 hours as needed for worsening breakthrough pain. Do not drink or drive on [place]. This medication will likely make you tired. Do not take [place] and Tylenol at the same time as both contain acetaminophen. [place] may cause constipation. You may wish to take an ooyd-zic-utruhth stool softener like Colace if this occurs. You are welcome to return to the emergency department anytime with new, worsening, or concerning symptoms.
== END 2017-11-24 23:48 | disposition home or self-care (01) ==
LOC: C.EDB 22:58 → C.EDC 23:48
DX: L03.116 Cellulitis of left lower limb (principal); S80.812A Abrasion, left lower leg, initial encounter; W45.8XXA Other foreign body or object entering through skin, initial encounter; I10 Essential (primary) hypertension; Z79.82 Long term (current) use of aspirin; Z79.02 Long term (current) use of antithrombotics/antiplatelets

== ENCOUNTER 2017-11-27 14:25 | Emergency (ER) | payer OTHER ==
[~2017-11-27] VITALS: Ht 172.7 cm; Wt 104.7 kg
[~2017-11-27 14:25] MED LIST changes: +CEPH500C PO; +SULF800T23 PO
[2017-11-27 14:30] VITALS: BP 113/67; PULSE 65; TEMP 36.8; O2SAT 96; Ht 172.7 cm; Wt 104.7 kg
--- NOTE | 2017-11-27 14:47 | EMERGENCY ROOM VISIT NOTE ---
ED Visit Note First contact with patient: 14:32 CHIEF COMPLAINT: Infection of the left alegria HISTORY OF PRESENT ILLNESS: This 47-year-old male patient presents to the emergency department, ambulatory, accompanied by his , complaining of ongoing pain and redness of his left alegria. The patient was seen here on Sunday and diagnosed with cellulitis. He was started on Keflex and Bactrim, which she has been taking as prescribed. The patient has been cleaning the wound with peroxide and water and covering it with a Band-Aid and antibiotic ointment. The patient has not allowed the wound open to air at all. The patient does report some mild purulent drainage. The patient denies fever, chills, nausea, or loss of appetite. Movement of the left lower extremity is mildly decreased because of the pain. The patient's tetanus shot is up to date. REVIEW OF SYSTEMS: A 10 system review of systems was performed with positives and pertinent negatives listed in the history of present illness. All other systems were reviewed and are negative. ALLERGIES: None MEDICATIONS: Albuterol, aspirin, Lipitor, Keflex, citalopram, Plavix, indoor, lisinopril, Imodium, metoprolol, nitro, Bactrim, terazosin PMH: Hypertension, cellulitis, heart disease SOCIAL HISTORY: Patient lives locally with family. He denies drug, alcohol, tobacco use. PHYSICAL EXAM: Vital Signs: Reviewed Nurse's notes, Temperature 36.8C, vital signs stable. GENERAL: This is a 47-year-old male, in no acute distress, is non toxic in appearance, well-developed, well-nourished. SKIN: The left anterior alegria is very minimally erythematous, very tender, and mildly swollen. There is no warmth. There is a small open wound over a incision site which measures approximately 1.5 cm with very minimal purulent drainage. There is no lymphangitic streaking. There is no discharge. There is no fluctuance. There is no induration. HEART: Regular rate and rhythm without murmur, gallop, or rub. LUNGS: Clear to auscultation bilaterally without wheezes, rales, or rhonchi. NEURO: Alert and oriented to person, place, and time. Normal sensation to light and sharp touch. Capillary reflex less than 2 seconds. Peripheral pulses 2 + bilaterally. EMERGENCY DEPARTMENT COURSE: I examined the patient. The wound does appear to be healing, but I suspect the symptoms now are more related to skin breakdown from keeping the wound covered with a bandage the past week. He states he has not allowed it to remain open at all, so I advised him of proper wound care at this point including keeping a thin layer of antibiotic ointment over the wound , but leaving it open to air. Culture of the drainage was obtained and sent to the lab for testing. Discharge instructions reviewed, the patient was discharged home in good condition. I attest that I have personally reviewed the patient's current medication list. Patient was found to have normal blood pressure on screening and does not require follow-up. Differential diagnosis includes cellulitis, abscess, DVT, superficial thrombus, septic joint, necrotizing fasciitis, burn, dermatitis, impetigo, erythema multiforme, bite, osteomyelitis, Chavez-Eugenio Syndrome, gangrene, malignancy , and others DIAGNOSIS: Cellulitis of the left anterior alegria The chart was completed utilizing [employer] Speech voice recognition software. Grammatical errors, random word insertions, pronoun errors, and incomplete sentences are an occasional consequence of this system due to software limitations, ambient noise, and hardware issues. Any formal questions or concerns about the content, text, or information contained within the body of this dictation should be directly addressed to the provider for clarification. Problem List Medical Problems: (1) Asthma Status: Chronic (2) HTN (hypertension) Status: Chronic (3) Hx of coronary artery disease Status: Chronic (4) NSTEMI (non-ST elevated myocardial infarction) Permanent Comment: S/P LAD stent 2012 Status: Chronic (5) paralyzed left ankle Status: Chronic (6) PUD (peptic ulcer disease) Status: Chronic (7) Tobacco abuse Status: Chronic Surgical Problems: (1) H/O cardiac catheterization Permanent Comment: 90% prox LAD s/p stent; normal LV function Status: Chronic (2) S/P appendectomy Status: Chronic (3) S/P surgical manipulation of ankle joint Status: Chronic (4) S/P tonsillectomy Status: Chronic Current/Historical Medications Scheduled Aspirin (Aspirin Ec), 81 MG PO QAM Atorvastatin (Lipitor), 80 MG PO QPM Cephalexin Monohydrate (Keflex), 500 MG PO TID Citalopram Hydrobromide (Citalopram Hydrobromide), 20 MG PO QPM Clopidogrel (Plavix), 75 MG PO QAM Isosorbide Mononitrate Ext Rel (Imdur Ext Rel), 60 MG PO QAM Lisinopril (Prinivil), 10 MG PO QAM Metoprolol Tartrate (Metoprolol Tartrate), 50 MG PO BID Sulfa/Trimethoprim (Bactrim Ds 800MG/160MG), 1 TAB PO BID Terazosin (Hytrin), 5 MG PO HS Scheduled PRN Albuterol Sulfate (Proair Respiclick), 2 PUFFS INH QID PRN for SOB/Wheezing Loperamide Hcl (Imodium), 2 MG PO BID-TID PRN for Diarrhea Nitroglycerin (Nitrostat), 0.4 MG UT UD PRN for Chest Pain Allergies Coded Allergies: No Known Allergies (Unverified , 07/06/17) Vital Signs Date Time Temp Pulse Resp B/P (MAP) Pulse Ox O2 Delivery O2 Flow Rate FiO2 11/27/17 14:30 36.8 65 18 113/67 96 Room Air Departure Information Impression Primary Impression: Cellulitis of left leg Additional Impression: Encounter for wound re-check Dispostion Home / Self-Care Condition GOOD Referrals Latisha Garcia MD (PCP) Patient Instructions ED Wound Care, My [facility] Additional Instructions You were seen in the emergency department today for a wound recheck. As discussed, the wound does appear to be healing well. At this point, I recommend keeping the wound clean with just regular soap and water. Dry the wound thoroughly with a clean towel. You should then apply a thin layer bacitracin ointment and begin to leave the wound open to air. Covered the wound with a loose bandage if it may get dirty. Ibuprofen(Motrin, Advil) may be used for fever or pain. Use 600mg every six hours as needed. Take with food. Avoid using more than 2400mg in a 24 hour period. Do not use 2400mg per day for more than three consecutive days without physician direction. Prolonged inappropriate use can lead to stomach upset or ulcers. (AND/OR) Acetaminophen(Tylenol) may be used for fever or pain. Use 1000mg every six hours as needed. Avoid using more than 3000mg in a 24 hour period. Follow-up with primary care provider in 2-3 days for reevaluation of the wound. Return to the emergency department for any significantly worsening pain, redness , swelling, fever, chills, nausea, vomiting, body aches, or other concerning symptoms. Problem Qualifiers
== END 2017-11-27 15:06 | disposition home or self-care (01) ==
LOC: C.EDB 14:26 → C.EDD 15:06
DX: L03.116 Cellulitis of left lower limb (principal); Z48.00 Encounter for change or removal of nonsurgical wound dressing; I10 Essential (primary) hypertension; I51.9 Heart disease, unspecified; J45.909 Unspecified asthma, uncomplicated; I21.4 Non-ST elevation (NSTEMI) myocardial infarction; K27.9 Peptic ulcer, site unspecified, unspecified as acute or chronic, without hemorrhage or perforation

== ENCOUNTER → 2017-11-30 | Outpatient (CLI) | payer OTHER ==
[2017-11-30 12:32] LABS: ALT/SGPT 32 U/L (12-78); BLOOD UREA NITROGEN 12 mg/dl (7-18); CALCIUM 8.2 mg/dl (8.5-10.1); CARBON DIOXIDE 26 mmol/L (21-32); CHOLESTEROL 100 mg/dl (0-200); CREATININE 1.16 mg/dl (0.60-1.40); GLUCOSE 118 mg/dl (70-99); GLUCOSE,FASTING 118 mg/dl (70-99); LDL CHOLESTEROL CALCULATED 44 mg/dl; POTASSIUM 4.2 mmol/L (3.5-5.1); SODIUM 135 mmol/L (136-145)
== END | disposition home or self-care (01) ==
LOC: C.LAB1850 10:06
PROVIDERS: ATTEND Family Medicine
DX: I10 Essential (primary) hypertension (principal); I25.10 Atherosclerotic heart disease of native coronary artery without angina pectoris

== ENCOUNTER 2019-04-28 11:18 | Observation (INO) ==
[2019-04-28] MEDS ORDERED: NITROGLYCERIN SL 0.4 MG/TAB TAB SL PRN ×3 (11:35→16:38)
[2019-04-28 11:53] LABS: Basophils # (auto) 0.06 K/uL (0-0.2); Basophils % (auto) 0.8 %; Eosinophils # (auto) 0.35 K/uL (0-0.5); Hematocrit (blood only) 42.9 % (42-52); Hemoglobin 14.8 g/dL (14.0-18.0); Immature Granulocytes # (auto) 0.02 K/uL (0.00-0.02); Immature Granulocytes % (auto) 0.3 %; Lymphocytes # (auto) 2.92 K/uL (1.2-3.4); Lymphocytes % (auto) 41.3 %; Mean Corpuscular Hemoglobin 30.5 pg (25-34); Mean Corpuscular Hgb Conc 34.5 g/dL (32-36); Mean Corpuscular Volume 88.3 fL (80-100); Mean Platelet Volume 10.9 fL (7.4-10.4); Monocytes # (auto) 0.63 K/uL (0.11-0.59); Monocytes % (auto) 8.9 %; Neutrophils # (auto) 3.09 K/uL (1.4-6.5); Neutrophils % (auto) 43.7 %; Platelet Count 164 K/uL (130-400); RDW Coefficient of Variation 12.9 % (11.5-14.5); RDW Standard Deviation 41.6 fL (36.4-46.3); Red Blood Count 4.86 M/uL (4.7-6.1); White Blood Count 7.07 K/uL (4.8-10.8)
[2019-04-28 12:12] LABS: Alanine Aminotransferase 43 U/L (12-78); Albumin Level 3.4 gm/dl (3.4-5.0); Aspartate Aminotransferase 20 U/L (15-37); BUN Creatinine Ratio 11.6 (10-20); Blood Urea Nitrogen 11 mg/dl (7-18); Calcium 8.9 mg/dl (8.5-10.1); Carbon Dioxide 28 mmol/L (21-32); Chloride 107 mmol/L (98-107); Creatinine Clr Calc Pharmacy 113.8 ml/min; Est GFR (African American) 108.5; Est GFR (Non-African American) 93.6; Glucose 77 mg/dl (70-99); Lipase 167 U/L (73-393); Potassium 3.8 mmol/L (3.5-5.1); Sodium 139 mmol/L (136-145)
[2019-04-28 12:16] LABS: D Dimer 260 ug/L FEU (0-500)
[2019-04-28 12:17] LABS: Alkaline Phosphatase 79 U/L (45-117); Bilirubin,Total 0.9 mg/dl (0.2-1); Creatine Kinase 136 U/L (39-308); Creatine Kinase MB 3.7 ng/ml (0.5-3.6); Globulin 3.3 gm/dl (2.5-4.0); Total Protein 6.7 gm/dl (6.4-8.2); Troponin I < 0.015 ng/ml (0-0.045)
--- NOTE | 2019-04-28 12:42 | XRay Report ---
XR chest 1V portable HISTORY: Atypical Chest Pain COMPARISON: Chest 05/13/2018. FINDINGS: The lungs are clear. Cardiac silhouette is normal in size. No pleural effusions. No pneumot horax. IMPRESSION: No acute process. ACT 112: Negative or not required by law. Electronically signed by: Beka Cueto M.D. 04/28/2019 12:40 PM
--- NOTE | 2019-04-28 15:05 | Emergency Department Note ---
Entered by Humble White acting as a scribe for History of Present Illness General Chief complaint: Chest Pain Stated complaint: CHEST PAIN Time Seen by Provider: 04/28/19 11:26 Source: patient History of Present Illness Provider complaint: Chest pain Onset (ago): day(s) 4 Location: chest Radiation: back Severity: similar to prior episodes Pain Consistency: + intermittent Maximum Pain Intensity: 2 Current Pain Intensity: 2 Exacerbated By: + other (Exertion) Associated symptoms: + shortness of breath and + other (Numbness, Fatigued ) The patient is a 48 year old male who presents to the Emergency Room with complaints of intermittent left sided chest pain that started about 4 days ago. The patient rates the pain as a 2/10 in severity and notes it sometimes radiates to his back. The patient endorses generalized fatigue and shortness of breath that is worse with exertion. The patient reports he noticed this when he walked out to get the mail today and became very short of breath. He adds that he also has numbness in his lips. The patient has a history of CAD and coronary stents x2 but was unable to take his Nitro because it had . The patient admits to missing his last appointment with cardiology 2 months ago. The patient takes Aspirin daily. Home Medications Home Medications Medication Instructions Recorded Confirmed Type albuterol sulfate [ProAir 2 inh INHALATION QID PRN 05/13/18 04/28/19 History RespiClick] aspirin [Aspir-81] 81 mg PO DAILY 05/13/18 04/28/19 History clopidogrel 75 mg PO DAILY 05/13/18 04/28/19 History nitroglycerin [Nitrostat] 0.4 mg SUBLINGUAL UD PRN 05/13/18 04/28/19 History metoprolol tartrate 50 mg tablet 50 mg PO BID #180 tab 10/14/18 04/28/19 Rx citalopram 20 mg tablet 20 mg PO DAILY #90 tab 01/07/19 04/28/19 Rx atorvastatin 80 mg tablet 80 mg PO PM #90 tab 03/05/19 04/28/19 Rx isosorbide mononitrate 60 mg 60 mg PO QAM #30 tab 04/17/19 04/28/19 Rx tablet,extended release 24 hr lisinopril 10 mg tablet 10 mg PO QAM #90 tab 04/21/19 04/28/19 Rx Allergies Allergy/AdvReac Type Severity Reaction Status Date / Time salicylates Allergy Unknown Unverified 04/28/19 12:35 Past Med/Surg History Medical History Benign prostatic hyperplasia with urinary obstruction (Chronic) BMI 36.0-36.9,adult (Chronic) CAD (coronary artery disease) (Chronic) Depression with anxiety (Chronic) Dysuria (Resolved) Edema (Resolved) Epididymitis (Resolved) Gross hematuria (Resolved) High cholesterol (Chronic) HTN (hypertension) (Chronic) Hyperglycemia (Chronic) Inflammatory bowel disease (Chronic) Left inguinal hernia (Chronic) NSTEMI (non-ST elevated myocardial infarction) (Resolved) Right rotator cuff tendonitis (Chronic) Umbilical hernia (Chronic) Surgical History H/O hand surgery H/O repair of rotator cuff Hx of tonsillectomy Family History Father Myocardial infarction Hypertension Cardiac disorder Prostate cancer Grandmother Myocardial infarction Grandfather Myocardial infarction Mother Cardiac disorder Brother Hypertension Stroke Lymphoma Social History Preferred Language: Liberian Communication Ability: Effective Visual Impairment: No Limitations Hearing Ability: Normal Coat Maker Required: No Beliefs That Will Affect Care: None marital status: Current Living Situation: Spouse 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 and A total of 10 systems reviewed and were otherwise negative Physical Exam Vital Signs Vital Signs - 24 hr 04/28/19 11:19 04/28/19 11:47 04/28/19 11:48 Temperature 36.8 C Temperature Source Oral Pulse Rate 76 Pulse Rate [Apical] 72 Pulse Rhythm Regular Pulse Rhythm [Apical] Regular Pulse Strength Normal Pulse Strength [Apical] Normal Respiratory Rate 16 18 Respiratory Effort / Characteristics Non-Labored Non-Labored Spontaneous Respiratory Depth Normal Normal Respiratory Pattern Regular Blood Pressure 162/94 H Blood Pressure [Right Arm] 171/112 H Blood Pressure Mean 116 Blood Pressure Mean [Right Arm] 131 Blood Pressure Position [Right Arm] Sitting Pulse Oximetry 100 99 99 Oxygen Delivery Method Room Air Room Air Room Air Sepsis Recent Fever Within 48 Hours No Sepsis Action Taken by Nursing No Action Required 04/28/19 11:54 04/28/19 13:06 04/28/19 13:11 Temperature Temperature Source Pulse Rate Pulse Rate [Apical] 61 64 Pulse Rhythm Pulse Rhythm [Apical] Regular Regular Pulse Strength Pulse Strength [Apical] Normal Normal Respiratory Rate 18 18 Respiratory Effort / Characteristics Non-Labored Spontaneous Non-Labored Respiratory Depth Normal Deep Respiratory Pattern Blood Pressure Blood Pressure [Right Arm] 160/101 H 138/89 Blood Pressure Mean Blood Pressure Mean [Right Arm] 120 105 Blood Pressure Position [Right Arm] Lying Pulse Oximetry 99 98 97 Oxygen Delivery Method Room Air Room Air Room Air Sepsis Recent Fever Within 48 Hours Sepsis Action Taken by Nursing 04/28/19 13:38 04/28/19 14:06 04/28/19 14:29 Temperature Temperature Source Pulse Rate Pulse Rate [Apical] 67 64 69 Pulse Rhythm Pulse Rhythm [Apical] Regular Regular Regular Pulse Strength Pulse Strength [Apical] Normal Normal Normal Respiratory Rate 18 18 18 Respiratory Effort / Characteristics Non-Labored Non-Labored Non-Labored Spontaneous Respiratory Depth Normal Normal Respiratory Pattern Blood Pressure Blood Pressure [Right Arm] 156/102 H 149/91 H 147/93 H Blood Pressure Mean Blood Pressure Mean [Right Arm] 120 110 111 Blood Pressure Position [Right Arm] Lying Lying Lying Pulse Oximetry 97 94 96 Oxygen Delivery Method Room Air Room Air Room Air Sepsis Recent Fever Within 48 Hours Sepsis Action Taken by Nursing GENERAL: Awake, alert, well-appearing, in no distress HENT: Normocephalic, atraumatic. Oropharynx unremarkable. EYES: Normal conjunctiva. Sclera non-icteric. NECK: Supple. No nuchal rigidity. FROM. No masses. RESPIRATORY: Clear to auscultation. No wheezes. No rales. Normal respiratory effort. CARDIAC: Normal rate. Normal rhythm. No murmurs. No rubs. Extremities warm and well perfused. Pulses equal. No JVD. GI: Soft, non-distended. No tenderness to palpation. No rebound or guarding. No masses. RECTAL: Deferred. MUSCULOSKELETAL: Atraumatic. Chest examination reveals no tenderness. The back is symmetrical on inspection without obvious abnormality. There is no CVA ten derness to palpation. No joint edema. LOWER EXTREMITIES: Calves are equal size bilaterally and non-tender. No edema. No discoloration. NEURO: Normal sensorium. No sensory or motor deficits noted. Course Course 1132: Past medical records reviewed. The patient was evaluated in room B02, and a complete history and physical examination were performed. 1211: I reevaluated the patient and updated him with results. He is agreeable with the treatment plan. 1235: I spoke to Dr. Karlos Huerta [facility] Hospitalist about the patient' case. She agreed to accept the patient for further evaluation. Consultations Consultation #1: I spoke to Dr. Karlos Huerta [facility] Hospitalist about the patient' case. She agreed to accept the patient for further evaluation. Time: 12:35 Administered Medications Nitroglycerin (Nitrostat) 0.4 mg SL UD PRN PRN Reason: Chest Pain Stop: 05/28/19 11:34 Last Admin: 04/28/19 13:04 Dose: 0.4 mg Documented by: [id number] Medical Decision Making Differential Diagnosis Differential diagnoses includes but is not limited to acute coronary syndrome, myocardial infarction, pericarditis, pulmonary embolus, aortic dissection, pneumonia, pneumothorax, musculoskeletal, shingles, esophageal. Medical Records Attestation: I reviewed the patient's medical records. Home Medications Current Medication List: was personally reviewed by me Laboratory Data Attestation: I reviewed the patient's lab results. Result diagrams: 04/28/19 11:38 04/28/19 11:38 Lab Results 04/28/19 04/28/19 04/28/19 Range/Units 11:38 11:38 11:38 WBC 7.07 (4.8-10.8) K/uL RBC 4.86 (4.7-6.1) M/uL Hgb 14.8 (14.0-18.0) g/dL Hct 42.9 (42-52) % MCV 88.3 (80-100) fL MCH 30.5 (25-34) pg MCHC 34.5 (32-36) g/dL RDW Std Deviation 41.6 (36.4-46.3) fL RDW Coeff of Thomas 12.9 (11.5-14.5) % Plt Count 164 (130-400) K/uL MPV 10.9 H (7.4-10.4) fL Immature Gran % (Auto) 0.3 % Neut % (Auto) 43.7 % Lymph % (Auto) 41.3 % [place] % (Auto) 8.9 % Eos % (Auto) 5.0 % Baso % (Auto) 0.8 % Immature Gran # (Auto) 0.02 (0.00-0.02) K/uL Neut # (Auto) 3.09 (1.4-6.5) K/uL Lymph # (Auto) 2.92 (1.2-3.4) K/uL [place] # (Auto) 0.63 H (0.11-0.59) K/uL Eos # (Auto) 0.35 (0-0.5) K/uL Baso # (Auto) 0.06 (0-0.2) K/uL D-Dimer 260 (0-500) ug/L FEU Sodium 139 (136-145) mmol/L Potassium 3.8 (3.5-5.1) mmol/L Chloride 107 (98-107) mmol/L Carbon Dioxide 28 (21-32) mmol/L Anion Gap 4.0 (3-11) BUN 11 (7-18) mg/dl Creatinine 0.95 (0.6-1.4) mg/dl Est Cr Clr Drug Dosing 113.8 ml/min Est GFR ( Amer) 108.5 Est GFR (Non-Af Amer) 93.6 BUN/Creatinine Ratio 11.6 (10-20) Glucose 77 (70-99) mg/dl Calcium 8.9 (8.5-10.1) mg/dl Total Bilirubin 0.9 (0.2-1) mg/dl AST 20 (15-37) U/L ALT 43 (12-78) U/L Alkaline Phosphatase 79 (45-117) U/L Total Creatine Kinase 136 (39-308) U/L CK-MB (CK-2) 3.7 H (0.5-3.6) ng/ml CK/CKMB % Calc 2.7 (0-3.0) Troponin I < 0.015 (0-0.045) ng/ml Total Protein 6.7 (6.4-8.2) gm/dl Albumin 3.4 (3.4-5.0) gm/dl Globulin 3.3 (2.5-4.0) gm/dl Albumin/Globulin Ratio 1.0 (0.9-2) Lipase 167 (73-393) U/L Imaging Data Radiologist's Impression: Radiology results as stated below per my review and the radiologist's interpretation: XR chest 1V portable HISTORY: Atypical Chest Pain COMPARISON: Chest 05/13/2018. FINDINGS: The lungs are clear. Cardiac silhouette is normal in size. No pleural effusions. No pneumothorax. IMPRESSION: No acute process. ACT 112: Negative or not required by law. Electronically signed by: Beka Cueto M.D. 04/28/2019 12:40 PM ECG Data Attestation: I personally reviewed and interpreted this ECG as follows: Indication: + chest pain Rate (beats per minute): 65 Rhythm: + normal sinus ECG Intervals/blocks: + Normal QT-c (409) ECG ST segments: no ST depression and no ST elevation ECG Findings: no PACs and no PVCs Blood Pressure Blood Pressure Findings: Elevated blood pressure Blood Pressure Disposition: Referred to patients primary care provider MDM Narrative This is a 48-year-old male who presents emergency department complaining of chest pain that is exertional in nature since . The patient was given nitro here in the emergency department which resulted in improvement in the patient's pain. He has a normal d-dimer here normal EKG normal CK-MB and troponin. Patient does have a history of 2 stents being placed. Because of this I feel the patient should be admitted. I did discuss the case with the hospitalist service who did agree to admit the patient. Patient was in agreement with the treatment plan. Impression & Plan Chest pain Discharge Plan Visit Data Chief Complaint: Chest Pain Stated Complaint: CHEST PAIN ED Provider: Gentry Alfonso Discharge Problem: Chest pain Forms Stand Alone Forms: Call Back Authorization, [facility] [place] [facility] Prescriptions Prescriptions: No Action metoprolol tartrate 50 mg tablet 50 mg PO BID Qty: 180 RF: 1 citalopram 20 mg tablet 20 mg PO DAILY Qty: 90 RF: 1 atorvastatin 80 mg tablet 80 mg PO PM Qty: 90 RF: 1 isosorbide mononitrate 60 mg tablet extended release 24 hr 60 mg PO QAM Qty: 30 RF: 5 lisinopril 10 mg tablet 10 mg PO QAM Qty: 90 RF: 3 ProAir RespiClick 90 mcg/actuation Aerosol Powdr Breath Activated 2 inh INHALATION QID PRN (Reason: Shortness Of Breath) RF: 0 clopidogrel 75 mg Tablet 75 mg PO DAILY RF: 0 aspirin [Aspir-81] 81 mg Tablet,Delayed Release (Dr/Ec) 81 mg PO DAILY RF: 0 nitroglycerin [Nitrostat] 0.4 mg Tablet, Sublingual 0.4 mg Sublingual UD PRN (Reason: Chest Pain) RF: 0 Referrals Referrals: Latisha Garcia MD [Primary Care Provider] - Discharge Problem: Chest pain Qualifiers: Chest pain type: unspecified Qualified Code(s): R07.9 - Chest pain, unspecified The scribe's documentation has been prepared under my direction and personally reviewed by me in its entirety. I confirm that the note above accurately reflects all work, treatment, procedures, and medical decision making performed by me.
--- NOTE | 2019-04-28 15:36 | Electrocardiogram Report ---
Test Reason : Blood Pressure : / mmHG Vent. Rate : 065 BPM Atrial Rate : 065 BPM P-R Int : 134 ms QRS Dur : 080 ms QT Int : 394 ms P-R-T Axes : 031 -04 006 degrees QTc Int : 409 ms Normal sinus rhythm Normal ECG When compared with ECG of 13-MAY-2018 14:56, No significant change was found Confirmed by Patrick Olivas ([id number]) on 04/28/2019 3:36:09 PM Referred By: REFERRED SELF Confirmed By:Patrick Olivas
--- NOTE | 2019-04-28 15:40 | History & Physical Report ---
Date of Service April 28, 2019 Assessment & Plan (1) Chest pain: Admit to PCU on telemetry. Vital signs every 4 hours. Troponin x3 with bulb filler electrolytes and replenish. TTE pending. Consider consulting cardiology if abnormal troponin. Consider stress test if troponin negative. DVT prophylaxis: Lovenox 40 mg subcu every 24. Full code Present on Admission?: Yes (2) Hyperlipidemia: Lipid panel pending. Continue atorvastatin 80 mg p.o. every afternoon. Present on Admission?: Yes (3) CAD (coronary artery disease): Continue home medicine aspirin 81 mg p.o. daily, Atorvastatin 80 mg p.o. every afternoon, clopidogrel 75 mg p.o. daily, Isosorbide mononitrate 60 mg p.o. every morning, Lisinopril 10 mg p.o. every morning, Metoprolol tartrate 50 mg p.o. twice daily, Nitroglycerin 0.4 mg sublingual as needed for exertional angina. Present on Admission?: Yes (4) Benign prostatic hyperplasia with urinary obstruction: Patient is not taking home medicine for benign prostatic hypertrophy. Present on Admission?: Yes (5) Morbid obesity: Patient advised to start lifestyle changes and diet changes and to lose weight. Recommended brisk exercises 3-5 times a week. Present on Admission?: Yes (6) HTN (hypertension): Continue home medicine: Aspirin 81 mg p.o. daily, clopidogrel 75 mg p.o. daily, isosorbide mononitrate 60 mg p.o. every morning, lisinopril 10 mg p.o. every morning, metoprolol tartrate 50 mg p.o. twice daily. Present on Admission?: Yes (7) Asthma: Continue albuterol 2 inhalations 4 times daily as needed. Present on Admission?: Yes History of Present Illness Chief Complaint: Chest pain Primary Care Provider: Latisha Garcia MD Patient is a 48-year-old male with past medical history of hypertension, tobacco abuse, asthma, peptic ulcer disease,NSTEMI with placement of 2 stents who presents to the emergency room with a complaint of intermittent left-sided chest pain that started 4 days ago. Patient states that pain is 2 out of 10 in severity and radiates to his back. Patient admits having a pain in bilateral shoulders due to chronic arthritis. Patient reports generalized fatigue and shortness of breath which is worsening with exertion. Patient reports that shortness of breath is more present on exertion and after short walk. Patient adds that sometimes he feels numbness in his lips. Patient admits that he missed appointment with his junior web developer 2 months ago. He takes aspirin daily. Patient denies fever, chills, abdominal pain, frequency, urgency, nausea, vomiting, syncope or near syncope. EKG reviewed and shows normal sinus rhythm. Labs are reviewed and shows WBCs of 7.07, hemoglobin 14.8, hematocrit 42.9, platelets 164, D-dimers of 260, sodium of 139, potassium 3.8, chloride 107, BUN 11, creatinine 0.95, GFR 93.6, magnesium 2.1, troponin negative x3, BNP 101, TSH 1.35. Chest x-ray shows no acute process. Decision was made to admit patient to PCU on telemetry for observation and to rule out acute coronary syndrome. Allergies Allergy/AdvReac Type Severity Reaction Status Date / Time salicylates Allergy Unknown Unverified 04/28/19 12:35 Home Medications Home Medications Medication Instructions Recorded Confirmed Type albuterol sulfate [ProAir 2 inh INHALATION QID PRN 05/13/18 04/28/19 History RespiClick] aspirin [Aspir-81] 81 mg PO DAILY 05/13/18 04/28/19 History clopidogrel 75 mg PO DAILY 05/13/18 04/28/19 History nitroglycerin [Nitrostat] 0.4 mg SUBLINGUAL UD PRN 05/13/18 04/28/19 History metoprolol tartrate 50 mg tablet 50 mg PO BID #180 tab 10/14/18 04/28/19 Rx citalopram 20 mg tablet 20 mg PO DAILY #90 tab 01/07/19 04/28/19 Rx atorvastatin 80 mg tablet 80 mg PO PM #90 tab 03/05/19 04/28/19 Rx isosorbide mononitrate 60 mg 60 mg PO QAM #30 tab 04/17/19 04/28/19 Rx tablet,extended release 24 hr lisinopril 10 mg tablet 10 mg PO QAM #90 tab 04/21/19 04/28/19 Rx Past Med/Surg History Medical History Benign prostatic hyperplasia with urinary obstruction (Chronic) BMI 36.0-36.9,adult (Chronic) CAD (coronary artery disease) (Chronic) Depression with anxiety (Chronic) Dysuria (Resolved) Edema (Resolved) Epididymitis (Resolved) Gross hematuria (Resolved) High cholesterol (Chronic) HTN (hypertension) (Chronic) Hyperglycemia (Chronic) Inflammatory bowel disease (Chronic) Left inguinal hernia (Chronic) NSTEMI (non-ST elevated myocardial infarction) (Resolved) Right rotator cuff tendonitis (Chronic) Umbilical hernia (Chronic) Surgical History H/O hand surgery H/O repair of rotator cuff Hx of tonsillectomy Family History Father Myocardial infarction Hypertension Cardiac disorder Prostate cancer Grandmother Myocardial infarction Grandfather Myocardial infarction Mother Cardiac disorder Brother Hypertension Stroke Lymphoma Social History Preferred Language: Ukrainian Communication Ability: Effective Visual Impairment: No Limitations Hearing Ability: Normal Rehabilitation Worker Required: No Beliefs That Will Affect Care: None marital status: Current Living Situation: Spouse 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 Other Information That Helps Us Care for You: No Feels Safe at Home: Yes Safety Concerns: Feels Safe At This Time Smoking Status: Former smoker Tobacco Type: cigarettes ; Age Started Using Tobacco: 17 ; Age Quit Using Tobacco: 44 ; Hx Alcohol Use: No Hx Substance Use: No Childhood Exposure to Second-Hand Smoke: Yes Dental Care, Regularly: Yes Physical Activity Frequency: Daily Seatbelt Use: always Sunscreen Use: No Review of Systems Review of Systems: All systems reviewed & are unremarkable except as noted in HPI & below Physical Exam Constitutional: WD/WN, vitals as above well developed Eyes: PERRL, conjunctivae normal, anicteric sclerae ENMT: external ear and nose normal, oropharynx normal Neck: trachea midline, no thyromegaly Respiratory: normal respiratory effort, lungs clear to auscultation Cardiovascular: Rate/Rhythm: regular rate and regular rhythm Vessels: dorsalis pedis pulses present Extremities: + pedal edema Gastrointestinal (Abdomen): normal bowel sounds, soft, nontender, no hepatosplenomegaly Musculoskeletal: no cyanosis or clubbing, extremities motor strength 5/5 Skin: no rashes, warm and dry Neurologic: patellar DTR's 2+ bilat, sensation intact Psychiatric: A+Ox3, euthymic affect Lymphatic: no cervical or axillary lymphadenopathy Results & Data Vital Signs (Past 12 Hours) Vital Signs Temp Pulse Pulse Resp BP BP Pulse Ox 04/28/19 14:29 69 18 147/93 H 96 04/28/19 14:06 64 18 149/91 H 94 04/28/19 13:38 67 18 156/102 H 97 04/28/19 13:11 64 18 138/89 97 04/28/19 13:06 61 18 160/101 H 98 04/28/19 11:54 99 04/28/19 11:48 72 18 171/112 H 99 04/28/19 11:47 99 04/28/19 11:19 36.8 C 76 16 162/94 H 100 Code Status & VTE Plan Code Status Full code VTE Prophylaxis Plan VTE Prophylaxis will be ordered: Yes PG Care Time/CCT Total # of Minutes Spent Total Time Spent with Patient: Total time spent is greater than 50% in coordination of care (as documented) at patient's floor/unit and/or counseling patient: (1) Chest pain Chest pain type: unspecified Qualified Code(s): R07.9 - Chest pain, unspecified
[2019-04-28] MEDS ORDERED: POLYETHYLENE (MIRALAX) 17 GM PACK PO PRN (16:38)
[2019-04-28] MEDS ORDERED: ALUMINUM/MAGNESIUM SUSP 30 ML UDC PO PRN (16:38)
[2019-04-28] MEDS ORDERED: ACETAMINOPHEN 325 MG TAB PO PRN (16:38)
[2019-04-28] MEDS ORDERED: ONDANSETRON INJ 2 MG/ML 2 ML VIAL IV PRN (16:38)
[2019-04-28] MEDS ORDERED: ALBUTEROL HFA 8 GM INHALER INH PRN (16:38)
[2019-04-28] MEDS ORDERED: MAGNESIUM HYDROXIDE SUSP 30 ML UDC PO PRN (16:38)
[2019-04-28 17:25] LABS: Magnesium 2.1 mg/dl (1.8-2.4)
[2019-04-28 17:30] LABS: Troponin I < 0.015 ng/ml (0-0.045)
[2019-04-28] MEDS: METOPROLOL TARTRATE 50 MG TAB PO SCH (19:58)
[2019-04-28] MEDS ORDERED: ENOXAPARIN INJ 40 MG/0.4 ML SYR SQ SCH (20:00)
[2019-04-28] MEDS ORDERED: ATORVASTATIN 40 MG TAB PO SCH (21:00)
[2019-04-29 06:58] LABS: Basophils # (auto) 0.04 K/uL (0-0.2); Basophils % (auto) 0.7 %; Eosinophils # (auto) 0.28 K/uL (0-0.5); Eosinophils % (auto) 5.1 %; Hematocrit (blood only) 43.2 % (42-52); Hemoglobin 14.7 g/dL (14.0-18.0); Immature Granulocytes # (auto) 0.01 K/uL (0.00-0.02); Immature Granulocytes % (auto) 0.2 %; Lymphocytes # (auto) 2.02 K/uL (1.2-3.4); Mean Corpuscular Hemoglobin 30.1 pg (25-34); Mean Corpuscular Volume 88.3 fL (80-100); Mean Platelet Volume 10.3 fL (7.4-10.4); Monocytes # (auto) 0.55 K/uL (0.11-0.59); Monocytes % (auto) 10.1 %; Neutrophils # (auto) 2.56 K/uL (1.4-6.5); Neutrophils % (auto) 46.9 %; Platelet Count 134 K/uL (130-400); RDW Coefficient of Variation 12.8 % (11.5-14.5); RDW Standard Deviation 41.1 fL (36.4-46.3); Red Blood Count 4.89 M/uL (4.7-6.1); White Blood Count 5.46 K/uL (4.8-10.8)
[2019-04-29 07:28] LABS: Albumin Level 3.3 gm/dl (3.4-5.0); Calcium 8.8 mg/dl (8.5-10.1); Creatinine Clr Calc Pharmacy 101.9 ml/min; Potassium 3.9 mmol/L (3.5-5.1)
[2019-04-29 07:35] LABS: Bilirubin,Total 1.8 mg/dl (0.2-1); Globulin 3.2 gm/dl (2.5-4.0); Total Protein 6.5 gm/dl (6.4-8.2)
[2019-04-29 08:06] LABS: Estimated Average Glucose 128 mg/dl; Hemoglobin A1C 6.1 % (4.5-5.6)
[2019-04-29] MEDS: METOPROLOL TARTRATE 50 MG TAB PO SCH (08:26)
[2019-04-29] MEDS ORDERED: CLOPIDOGREL BISULFATE 75 MG TAB PO SCH (09:00)
[2019-04-29] MEDS ORDERED: ISOSORBIDE MONO EXTENDED REL 60 MG TABCR PO SCH (09:00)
[2019-04-29] MEDS ORDERED: lisinopriL 10 MG TAB PO SCH (09:00)
[2019-04-29] MEDS ORDERED: ASPIRIN 81 MG ECTAB PO SCH (09:00)
[2019-04-29] MEDS ORDERED: CITALOPRAM 20 MG TAB PO SCH (09:00)
--- NOTE | 2019-04-29 09:42 | Electrocardiogram Report ---
Test Reason : Blood Pressure : / mmHG Vent. Rate : 060 BPM Atrial Rate : 060 BPM P-R Int : 134 ms QRS Dur : 082 ms QT Int : 424 ms P-R-T Axes : 036 001 000 degrees QTc Int : 424 ms Normal sinus rhythm Normal ECG When compared with ECG of 28-APR-2019 11:25, No significant change was found Confirmed by Patrick Olivas ([id number]) on 04/29/2019 9:41:38 AM Referred By: REFERRED SELF Confirmed By:Patrick Olivas
[2019-04-29] MEDS ORDERED: PERFLUTREN LIPID MICROSPHERE (DEFINITY) IV ONE (11:29)
--- NOTE | 2019-04-29 15:25 | Discharge Summary ---
Date of Service April 29, 2019 Admission HPI Per Admitting Provider Patient is a 48-year-old male with past medical history of hypertension, tobacco abuse, asthma, peptic ulcer disease,NSTEMI with placement of 2 stents who presents to the emergency room with a complaint of intermittent left-sided chest pain that started 4 days ago. Patient states that pain is 2 out of 10 in severity and radiates to his back. Patient admits having a pain in bilateral shoulders due to chronic arthritis. Patient reports generalized fatigue and shortness of breath which is worsening with exertion. Patient reports that shortness of breath is more present on exertion and after short walk. Patient adds that sometimes he feels numbness in his lips. Patient admits that he missed appointment with his awning erector 2 months ago. He takes aspirin daily. Patient denies fever, chills, abdominal pain, frequency, urgency, nausea, vomiting, syncope or near syncope. EKG reviewed and shows normal sinus rhythm. Labs are reviewed and shows WBCs of 7.07, hemoglobin 14.8, hematocrit 42.9, platelets 164, D-dimers of 260, sodium of 139, potassium 3.8, chloride 107, BUN 11, creatinine 0.95, GFR 93.6, magnesium 2.1, troponin negative x3, BNP 101, TSH 1.35. Chest x-ray shows no acute process. Decision was made to admit patient to PCU on telemetry for observation and to rule out acute coronary syndrome. Principal Diagnosis Chest pain Discharge Exam Constitutional WD/WN, vitals as above Eyes PERRL, conjunctivae normal, anicteric sclerae ENMT external ear and nose normal, oropharynx normal Neck trachea midline, no thyromegaly Respiratory normal respiratory effort, lungs clear to auscultation Cardiovascular RRR, no murmur, no edema Gastrointestinal (Abdomen) normal bowel sounds, soft, nontender, no hepatosplenomegaly Musculoskeletal no cyanosis or clubbing, extremities motor strength 5/5 Skin no rashes, warm and dry Neurologic patellar DTR's 2+ bilat, sensation intact and PERRL, EOMI, accommodation nl, no face palsy, no dysarthria Psychiatric A+Ox3, euthymic affect Lymphatic no cervical or axillary lymphadenopathy Discharge Data Allergies Allergy/AdvReac Type Severity Reaction Status Date / Time salicylates Allergy Unknown Unverified 04/28/19 12:35 Consultations 04/28/19 12:28 ED Decision to Admit Stat Hospital Course (1) Chest pain: Admit to PCU on telemetry. no further chest pain EKG without signs of ischemia troponin negative x 3 sets reviewed chart and talked with patient, has had intermittent chest pain complaints for a few months proceeded with exercise stress echo while here, it was negative for signs of ischemia, EF preserved, d/w Dr. Olivas will d/c to home, follow up with PCP (2) Hyperlipidemia: Continue atorvastatin 80 mg p.o. every afternoon. (3) CAD (coronary artery disease): Continue home medicine aspirin 81 mg p.o. daily, Atorvastatin 80 mg p.o. every afternoon, clopidogrel 75 mg p.o. daily, Isosorbide mononitrate 60 mg p.o. every morning, Lisinopril 10 mg p.o. every morning, Metoprolol tartrate 50 mg p.o. twice daily, Nitroglycerin 0.4 mg sublingual as needed for exertional angina. (4) Benign prostatic hyperplasia with urinary obstruction: Patient is not taking home medicine for benign prostatic hypertrophy. (5) Morbid obesity: Patient advised to start lifestyle changes and diet changes and to lose weight. Recommended brisk exercises 3-5 times a week. (6) HTN (hypertension): isosorbide mononitrate 60 mg p.o. every morning, lisinopril 10 mg p.o. every morning, metoprolol tartrate 50 mg p.o. twice daily. BP slightly high in 160's systolic would recommend BP check in the office could consider increasing Lisinopril if needed, no room to titrate up on metoprolol as resting HR 50-60 (7) Asthma: Continue albuterol 2 inhalations 4 times daily as needed. Total Time Total Time Spent Total Time Spent (In Minutes): 32 minutes Total Time Includes: Examination of the Patient, Discharge Planning and Medication Reconciliation Discharge Plan Discharge Items Patient Disposition: Home - Self-Care Reason For Visit: CHEST PAIN Discharge Diagnosis: Chest pain Negative exercise stress echocardiogram Condition on Discharge: Good Goals: follow up with PCP and cardiology as previously scheduled take medications as prescribed Activity: Resume your previous activity Non-emergency contact: Primary Care Provider and Bulk Cooler Installer Call non-emergency contact if: you have any medication questions, your symptoms worsen, your pain is not controlled and you have a fever Follow-up/Referrals: Latisha Garcia MD [Primary Care Provider] - Diet: Heart Healthy Addtl Attending Provider Instructions: Medications: no changes Chest pain EKG at time of admission and this morning with no signs of ischemia, no evidence of heart attack Troponin (heart enzyme) negative for three sets which confirms no heart attack exercise stress echocardiogram this morning negative for ischemia recommend that you continue on home regimen of aspirin, Plavix, Imdur, Lisinopril, metoprolol and Lipitor follow a heart health diet (low salt, low fat/cholesterol) Pending Studies at Discharge: No Stand-Alone Forms: Call Back Authorization, On License Of [facility], Smoking Cessation Medications and DC Order Prescriptions: Continued metoprolol tartrate 50 mg tablet 50 mg PO BID Qty: 180 RF: 1 citalopram 20 mg tablet 20 mg PO DAILY Qty: 90 RF: 1 atorvastatin 80 mg tablet 80 mg PO PM Qty: 90 RF: 1 isosorbide mononitrate 60 mg tablet extended release 24 hr 60 mg PO QAM Qty: 30 RF: 5 lisinopril 10 mg tablet 10 mg PO QAM Qty: 90 RF: 3 ProAir RespiClick 90 mcg/actuation Aerosol Powdr Breath Activated 2 inh INHALATION QID PRN (Reason: Shortness Of Breath) RF: 0 clopidogrel 75 mg Tablet 75 mg PO DAILY RF: 0 aspirin [Aspir-81] 81 mg Tablet,Delayed Release (Dr/Ec) 81 mg PO DAILY RF: 0 nitroglycerin [Nitrostat] 0.4 mg Tablet, Sublingual 0.4 mg Sublingual UD PRN (Reason: Chest Pain) RF: 0 Discharge Orders: Discharge Order (Routine); Ordered 04/29/19 Ordered By: Adan Pablo/Other Patient Handouts: A1C Admission Data Admit Date/Time: 04/28/19 15:39 Attending Provider: Adan Harp Admit Provider: Joanne Everett Primary Care Provider: Latisha Garcia Other Providers: Joanne Everett Other Interventions: Discharge Summary Assessment (RN) Last Done: 04/29/19 12:50 DC Date/Time DO NOT enter until pt leaves facility: 04/29/19 13:05
== END 2019-04-29 13:05 | disposition home or self-care (01) ==
LOC: ED 11:18 → 2S 11:18 → SUATTDRO 15:39 → 2S 16:10

== ENCOUNTER 2024-12-03 16:23 | Inpatient (IN) ==
[2024-12-03] MEDS: ALBUT/IPRATROP 3MG/0.5MG NEB 3 ML VIAL NEB STA ×3 (16:49→18:35)
[2024-12-03] MEDS: ASPIRIN CHEW 324 MG PO STA (16:49)
[2024-12-03 16:50] LABS: Base Excess VBG 2.0 mEq/L; HCO3 VBG 27 mmol/L; Oxygen Saturation VBG 63.1 %; PCO2 VBG 40 mmHg (38-50); PO2 VBG 34 mmHg; pH VBG 7.43 (7.36-7.41)
[2024-12-03 16:54] LABS: Hematocrit (blood only) 36.7 % (42.0-52.0); Hemoglobin 13.2 g/dl (14.0-18.0); Immature Granulocytes # (auto) 0.02 K/uL (0.01-0.20); Immature Granulocytes % (auto) 0.2 %; Mean Corpuscular Hemoglobin 31.9 pg (25.0-34.0); Mean Corpuscular Volume 88.6 fL (80.0-100.0); Platelet Count 147 K/uL (130-400); RDW Standard Deviation 39.4 fL (36.4-46.3); Red Blood Count 4.14 M/uL (4.70-6.10); White Blood Count 9.15 K/ul (4.8-10.8)
[2024-12-03 17:10] LABS: Anion Gap 7.0 (3-11); Blood Urea Nitrogen 21.0 mg/dl (6-23); Calcium 9.2 mg/dl (8.6-10.3); Carbon Dioxide 26.0 mmol/L (21-32); Chloride 101.0 mmol/L (98-107); Creatinine Clr Calc Pharmacy 84.9 ml/min; Glucose 147.0 mg/dl (70-99(Fasting)); Lipase 23.0 U/L (11-82); Potassium 3.9 mmol/L (3.5-5.1); Sodium 134.0 mmol/L (136-145)
[2024-12-03 17:32] LABS: Influenza A virus by PCR Negative (Neg); Influenza B virus by PCR Negative (Neg); SARS CoV2 RNA(COVID-19) Ceph NEGATIVE (Negative)
[2024-12-03 17:36] LABS: INR 1.0 (0.9-1.1); Partial Thromboplastin Time 27 Seconds (21-31); Prothrombin Time 11.1 Seconds (9.0-12.0)
--- NOTE | 2024-12-03 18:29 | XRay Report ---
Clinical History: Cough and congestion Technique: PA and lateral views of the chest were obtained Findings: There are no confluent pulmonary infiltrates. The heart size is within normal limits. No pleural effusion or pneumothorax is seen. There is left lung base atelectasis No fracture is noted. No foreign body is seen Impression: Left lung base atelectasis Electronically signed by Gurdeep Joy 12-03-2024 6:12 PM
[2024-12-03] MEDS: AZITHROMYCIN 250 MG TAB PO ONE (18:35)
--- NOTE | 2024-12-03 19:13 | History & Physical Report ---
Date of Service December 03, 2024 Assessment & Plan (1) Shortness of breath: (2) Cough: (3) DM2 (diabetes mellitus, type 2): (4) HTN (hypertension): (5) H/O cardiac catheterization: (6) Asthma: (7) CAD (coronary artery disease): (8) Hyperlipidemia: Plan Mr. Clarke is a 54 y.o. M with PMHx of asthma, CAD s/p coronary artery stent placement, HLD, T2DM, HTN, ex-smoker, who presents due to SOB, cough, and CP. #COPD Exacerbation - SpO2 high 80s in urgent care - currently on 3L NC, SpO2 low 90s, target minimum 94%, titrate as needed, goal to de-escalate oxygen use - patient is not on home oxygen at baseline - received 3 DuoNeb tx, oral Prednisone 50mg, Azithromycin 500mg in ED - continue Azithromycin 500mg, DuoNebs - continue home Trilegy - Start Mucinex - Start IV Solumedrol 40 q12 #HTN - continue home medication Lisinopril #T2DM - d/c home medications Tirzepatide and Ozempic - initiate sliding scale insulin - last A1C 06/2024 5.3 #CAD s/p stent placement - continue home medications ASA 81mg, clopidogrel, metoprolol, Ranolazine #HLD - continue home medication atorvastatin 80mg Dispo: admit to med-surg tele Code status: full code Diet: heart healthy, T2DM VTE Prophylaxis: Lovenox History of Present Illness Chief Complaint: SOB, chest pain, cough Primary Care Provider: Latisha Garcia MD Mr. Clarke is a 54 y.o. M with PMHx of asthma, CAD s/p coronary artery stent p lacement, HLD, T2DM, HTN, ex-smoker, who presents due to SOB, cough, and CP. 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 Patient also reports new-onset SOB with exertion that started yesterday morning. Reports he felt dizzy and lightheaded at this time. He took 2 puffs of his Albuterol and 2 puffs of Trelegy which did not seem to help. Around evening time yesterday, he developed generalized body aches as well as midline, localized chest pressure. Patient visited urgent care today and reports 102 fever, SpO2 high 80s on room air, and was told to come to ED. During his time in ED, he has been given 3 Duo Neb treatments, oral Prednisone 50mg, and Azithromycin 500mg which he states has provided significant relief. He is currently on 3L NC. At baseline, patient reports cough attacks and waking up in middle of night due to cough few times a week, however has never been hospitalized due to his symptoms. He uses his Trelegy and Albuterol a few times a week, specifically when he is outside and exerting himself more than usual. Denies use of oxygen at home. Today, patient state she still has lingering SOB, cough, and SOB but it has improved considerably since this morning. Regular BMs. Denies urinary symptoms. Denies N/V, AP, sore throat. Of note, he is an ex-smoker 2ppd from age 17 to 43, but quit 11 years ago. Allergies Allergy/AdvReac Type Severity Reaction Status Date / Time No Known Drug Allergies Allergy Verified 07/07/24 11:00 Home Medications Medication Instructions Recorded Confirmed Type aspirin 81 mg tablet,delayed 81 mg PO DAILY 03/21/21 12/03/24 History release albuterol sulfate 90 mcg/actuation 2 inh inhalation Q6H PRN shortness 06/21/22 12/03/24 Rx aerosol inhaler of breath or wheezing #8.5 grams metoprolol succinate 100 mg 150 mg (1.5 x 100 mg) PO DAILY 04/02/24 12/03/24 Rx tablet,extended release 24 hr #135 tabs nitroglycerin 0.4 mg sublingual 0.4 mg sublingual UD PRN Chest 06/20/24 12/03/24 Rx tablet (Nitrostat) Pain #25 tabs ranolazine 1,000 mg 1,000 mg PO BID #180 tabs 06/27/24 12/03/24 Rx tablet,extended release,12 hr tirzepatide 10 mg/0.5 mL 10 mg (0.5 mL) subcut WK #2 mL 07/07/24 12/03/24 Rx subcutaneous pen injector clopidogrel 75 mg tablet 75 mg PO DAILY #90 tabs 07/11/24 12/03/24 Rx atorvastatin 80 mg tablet 80 mg PO PM #90 tabs 08/25/24 12/03/24 Rx famotidine 40 mg tablet 40 mg PO PM #30 tabs 09/08/24 12/03/24 Rx fluticasone fur. 100 mcg-umeclid 1 inh inhalation DAILY 12/03/24 12/03/24 History 62.5 mcg-vilant 25 mcg inhalat.powder (Trelegy Ellipta) lisinopril 10 mg tablet 10 mg PO QAM 12/03/24 12/03/24 History sertraline 50 mg tablet 50 mg PO DAILY 12/03/24 12/03/24 History Past Med/Surg History Problem List (Updated 12/03/24 @ 23:33 by Rich Gaming MD) Diffuse wheezing (Acute) Hypoxia (Acute) Cough Dyslipidemia Erectile dysfunction DM2 (diabetes mellitus, type 2) Chronic knee pain Pes anserine bursitis Asthma (Chronic) Tobacco abuse (Chronic) H/O cardiac catheterization (Chronic) "90% prox LAD s/p stent; normal LV function" Stented coronary artery (Chronic) HTN (hypertension) (Chronic) BMI 36.0-36.9,adult (Chronic) Benign prostatic hyperplasia with urinary obstruction (Chronic) CAD (coronary artery disease) (Chronic) Depression with anxiety (Chronic) Inflammatory bowel disease (Chronic) Left inguinal hernia (Chronic) Right rotator cuff tendonitis (Chronic) Umbilical hernia (Chronic) Hyperlipidemia Morbid obesity Diarrhea S/P coronary artery stent placement Fatigue Fracture of phalanx of index finger MCL sprain of left knee Medical History Exertional angina Prediabetes COVID-19 High cholesterol Epididymitis Edema NSTEMI (non-ST elevated myocardial infarction) PUD (peptic ulcer disease) Surgical History History of surgery left leg reconstruction H/O hand surgery right ring finger 2014 Hx of tonsillectomy H/O repair of rotator cuff S/P appendectomy S/P surgical manipulation of ankle joint Family History Father Myocardial infarction Hypertension Cardiac disorder Prostate cancer Heart disease Grandmother Myocardial infarction Grandfather Myocardial infarction Heart disease Mother Cardiac disorder Artificial pacemaker Heart disease Brother Hypertension Stroke Lymphoma Brother , 3 mos of age "crib " No problems noted. Denies family history of Ovarian cancer Crohn's disease Breast cancer Colorectal cancer Social History Smoking Status: Former smoker Tobacco Type: Cigarettes Age Started Using Tobacco: 17; Age Quit Using Tobacco: 44; packs per day: 2; Cigarettes Per Day: 20; Second Hand Exposure: No; Do You Dip or Chew Tobacco: No; Hx Alcohol Use: No Hx Substance Use: No Preferred Language: Uzbek Communication Ability: Effective Visual Impairment: No Limitations Hearing Ability: Normal Physician Extender Required: No Beliefs That Will Affect Care: None marital status: Current Living Situation: Spouse current occupational status: employed 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 How many Children do You have: 1 Feels Safe at Home: Yes Childhood Exposure to Second-Hand Smoke: Yes Diet: regular Diet Comment: regular caffeine: No during the past year weight has: remained stable Dental Care, Regularly: Yes Physical Activity Frequency: Daily Seatbelt Use: always Sunscreen Use: No Assistive Devices: None Review of Systems Constitutional: as per Subjective / HPI Physical Exam Constitutional: WD/WN, vitals as above Respiratory: + cough Auscultation: + wheezes (insp iratory and expiratory, bilateral) Cardiovascular: Rate/Rhythm: regular rate and regular rhythm Heart Sounds: normal S1 and normal S2 Extremities: + edema (L ankle (baseline per patient)) Gastrointestinal (Abdomen): normal bowel sounds, soft, nontender, no hepatosplenomegaly Skin: no rashes, warm and dry Psychiatric: A+Ox3, euthymic affect Results & Data Results & Data Vital Signs (Past 12 Hours) Vital Signs Temp Pulse Resp BP Pulse Ox O2 Del Method O2 Flow Rate 12/03/24 18:34 92 Nasal Cannula 3 12/03/24 18:09 84 27 H 94 12/03/24 18:00 112/82 12/03/24 17:45 80 16 131/74 95 12/03/24 17:12 85 28 H 94 12/03/24 17:06 94 Room Air 12/03/24 17:00 Nebulizer 12/03/24 17:00 120/73 12/03/24 16:50 87 L Room Air 12/03/24 16:46 37.5 C 12/03/24 16:45 89 25 H 90 12/03/24 16:43 90 Room Air 12/03/24 16:40 138/71 12/03/24 16:33 95 H 31 H 93 12/03/24 16:31 92 H 12/03/24 16:24 37 C 95 H 22 115/72 92 Room Air Supervising Physician Co-Signing Physician Notes Attending addendum: I have physically seen this patient, have supervised the medical residents activities, and agree with the H&P unless as otherwise noted. Assessment and Plan: The patient is a 54-year-old male with a past medical history including asthma, COPD, diabetes mellitus, tobacco abuse history, stented coronary artery, hypertension, BPH with LUTS, CAD, depression with anxiety, inflammatory bowel disease and hyperlipidemia. COPD exacerbation- Patient was noted to have pulse ox on room air in the 87 to 88% range He was titrated with nasal cannula 3 L oxygen to maintain pulse ox in the 92-94% range He noted significant improvement after third DuoNeb treatment, oral prednisone 50 mg, and azithromycin 500 mg in the ED Placed on Solu-Medrol 40 mg IV every 12 hours Mucinex 600 mg p.o. every 12 hours Continue home Trelegy DuoNebs every 4 hours as needed Azithromycin 500 mg p.o. daily CAD/hypertension/history of stented coronary artery- Continue lisinopril, aspirin, clopidogrel, metoprolol succinate, and ranolazine Nitroglycerin sublingual's as needed Hyperlipidemia- Continue atorvastatin Diabetes mellitus- Hold tirzepatide and Ozempic Placed on Accu-Cheks with NovoLog SSI as noted Depression and anxiety- Continue sertraline GERD- Continue famotidine Resident Activity Tracking Resident Involvement: Resident Care Provided Care Provided: Adult Hospital Medicine (4) HTN (hypertension) Hypertension type: primary hypertension Qualified Code(s): I10 - Essential (primary) hypertension (7) CAD (coronary artery disease) Associated angina: with stable angina Coronary Disease-Associated Artery/Lesion type: [place] artery [place] vs. transplanted heart: [place] heart Qualified Code(s): I25.118 - Atherosclerotic heart disease of [place] coronary artery with other forms of angina pectoris (8) Hyperlipidemia Hyperlipidemia type: unspecified Qualified Code(s): E78.5 - Hyperlipidemia, unspecified
[2024-12-03] MEDS ORDERED: MAGNESIUM HYDROXIDE SUSP 30 ML UDC PO PRN (19:48)
[2024-12-03] MEDS ORDERED: ONDANSETRON INJ 2 MG/ML 2 ML VIAL IV PRN (19:48)
[2024-12-03] MEDS ORDERED: POLYETHYLENE (MIRALAX) 17 GM PACK PO PRN (19:48)
[2024-12-03] MEDS ORDERED: ALUMINUM/MAGNESIUM SUSP 30 ML UDC PO PRN (19:48)
[2024-12-03] MEDS ORDERED: MELATONIN 3 MG TAB PO PRN (19:48)
[2024-12-03] MEDS ORDERED: GLUCAGON FOR INJ 1 MG VIAL SQ PRN (21:36)
[2024-12-03] MEDS ORDERED: CARBOHYDRATES FOR HYPOGLYCEMIA PO PRN (21:36)
[2024-12-03] MEDS ORDERED: GLUCOSE 10 TAB/TUBE PO PRN (21:36)
[2024-12-03] MEDS ORDERED: DEXTROSE 50% 50 ML SYRINGE IV PRN (21:36)
[2024-12-03] MEDS ORDERED: GLUCOSE 40% GEL 15 GM TUBE PO PRN (21:36)
[2024-12-03] MEDS: RANOLAZINE 500 MG ER TAB PO SCH (23:03)
[2024-12-03] MEDS: FAMOTIDINE 40 MG TABLET PO SCH (23:03)
[2024-12-03] MEDS: guaiFENesin 600 MG TABCR PO SCH (23:03)
[2024-12-03] MEDS: ATORVASTATIN 40 MG TAB PO SCH (23:03)
[2024-12-03] MEDS: ENOXAPARIN INJ 40 MG/0.4 ML SYR SQ SCH (23:04)
--- NOTE | 2024-12-03 23:27 | Emergency Department Note ---
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 after cleaning out out a dirty/[facility] cell) Associated symptoms: + cough, + wheezing, + sputum production and + chest congestion; no chest pain, no fever, no hemoptysis, no nausea/vomiting or no abdominal pain Related Data Home oxygen amount: none Home Medications Medication Instructions Recorded Confirmed Type aspirin 81 mg tablet,delayed 81 mg PO DAILY 03/21/21 12/03/24 History release albuterol sulfate 90 mcg/actuation 2 inh inhalation Q6H PRN shortness 06/21/22 12/03/24 Rx aerosol inhaler of breath or wheezing #8.5 grams metoprolol succinate 100 mg 150 mg (1.5 x 100 mg) PO DAILY 04/02/24 12/03/24 Rx tablet,extended release 24 hr #135 tabs nitroglycerin 0.4 mg sublingual 0.4 mg sublingual UD PRN Chest 06/20/24 12/03/24 Rx tablet (Nitrostat) Pain #25 tabs ranolazine 1,000 mg 1,000 mg PO BID #180 tabs 06/27/24 12/03/24 Rx tablet,extended release,12 hr tirzepatide 10 mg/0.5 mL 10 mg (0.5 mL) subcut WK #2 mL 07/07/24 12/03/24 Rx subcutaneous pen injector clopidogrel 75 mg tablet 75 mg PO DAILY #90 tabs 07/11/24 12/03/24 Rx atorvastatin 80 mg tablet 80 mg PO PM #90 tabs 08/25/24 12/03/24 Rx famotidine 40 mg tablet 40 mg PO PM #30 tabs 09/08/24 12/03/24 Rx fluticasone fur. 100 mcg-umeclid 1 inh inhalation DAILY 12/03/24 12/03/24 History 62.5 mcg-vilant 25 mcg inhalat.powder (Trelegy Ellipta) lisinopril 10 mg tablet 10 mg PO QAM 12/03/24 12/03/24 History sertraline 50 mg tablet 50 mg PO DAILY 12/03/24 12/03/24 History Allergies Allergy/AdvReac Type Severity Reaction Status Date / Time No Known Drug Allergies Allergy Verified 07/07/24 11:00 Past Med/Surg History Problem List (Updated 12/03/24 @ 23:33 by Rich Gaming MD) Diffuse wheezing (Acute) Hypoxia (Acute) Cough Dyslipidemia Erectile dysfunction DM2 (diabetes mellitus, type 2) Chronic knee pain Pes anserine bursitis Asthma (Chronic) Tobacco abuse (Chronic) H/O cardiac catheterization (Chronic) "90% prox LAD s/p stent; normal LV function" Stented coronary artery (Chronic) HTN (hypertension) (Chronic) BMI 36.0-36.9,adult (Chronic) Benign prostatic hyperplasia with urinary obstruction (Chronic) CAD (coronary artery disease) (Chronic) Depression with anxiety (Chronic) Inflammatory bowel disease (Chronic) Left inguinal hernia (Chronic) Right rotator cuff tendonitis (Chronic) Umbilical hernia (Chronic) Hyperlipidemia Morbid obesity Diarrhea S/P coronary artery stent placement Fatigue Fracture of phalanx of index finger MCL sprain of left knee Medical History Exertional angina Prediabetes COVID-19 High cholesterol Epididymitis Edema NSTEMI (non-ST elevated myocardial infarction) PUD (peptic ulcer disease) Surgical History History of surgery left leg reconstruction H/O hand surgery right ring finger 2014 Hx of tonsillectomy H/O repair of rotator cuff S/P appendectomy S/P surgical manipulation of ankle joint Family History Father Myocardial infarction Hypertension Cardiac disorder Prostate cancer Heart disease Grandmother Myocardial infarction Grandfather Myocardial infarction Heart disease Mother Cardiac disorder Artificial pacemaker Heart disease Brother Hypertension Stroke Lymphoma Brother , 3 mos of age "crib " No problems noted. Denies family history of Ovarian cancer Crohn's disease Breast cancer Colorectal cancer Social History Smoking Status: Former smoker Tobacco Type: Cigarettes Age Started Using Tobacco: 17; Age Quit Using Tobacco: 44; packs per day: 2; Cigarettes Per Day: 20; Second Hand Exposure: No; Do You Dip or Chew Tobacco: No; Hx Alcohol Use: No Hx Substance Use: No Preferred Language: Estonian Communication Ability: Effective Visual Impairment: No Limitations Hearing Ability: Normal Cell Phone Repair Technician Required: No Beliefs That Will Affect Care: None marital status: Current Living Situation: Spouse current occupational status: employed 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 How many Children do You have: 1 Feels Safe at Home: Yes Childhood Exposure to Second-Hand Smoke: Yes Diet: regular Diet Comment: regular caffeine: No during the past year weight has: remained stable Dental Care, Regularly: Yes Physical Activity Frequency: Daily Seatbelt Use: always Sunscreen Use: No Assistive Devices: None Physical Exam 2 Vital Signs: Vital Signs - 24 hr 12/03/24 16:24 12/03/24 16:31 12/03/24 16:33 Temperature 37 C Temperature Source Oral Pulse Rate 95 H 92 H 95 H Pulse Rate from Sp O2 Sensor 95 H Respiratory Rate 22 31 H Respiratory Effort / Characteristics Non-Labored Sponta neous Respiratory Depth Normal Respiratory Patter n Regular Blood Pressure 115/72 Blood Pressure Hui n 86 Pulse Oximetry 92 93 Oxygen Delivery Me thod Room Air Oxygen Flow Rate Sepsis Recent Feve r Within 48 Hours No Sepsis New/Unexpla ined Change in Men doc Status N/A Sepsis Action Take n by Nursing No Action Required Oxygen Flow Rate - Titration Pulse Oximetry Pos t Tiitration 12/03/24 16:40 12/03/24 16:43 12/03/24 16:45 Temperature Temperature Source Pulse Rate 89 Pulse Rate from Sp O2 Sensor 90 Respiratory Rate 25 H Respiratory Effort / Characteristics Respiratory Depth Respiratory Patter n Blood Pressure 138/71 Blood Pressure Hui n 85 Pulse Oximetry 90 90 Oxygen Delivery Me thod Room Air Oxygen Flow Rate Sepsis Recent Feve r Within 48 Hours Sepsis New/Unexpla ined Change in Men doc Status Sepsis Action Take n by Nursing Oxygen Flow Rate - Titration Pulse Oximetry Pos t Tiitration 12/03/24 16:46 12/03/24 16:50 12/03/24 17:00 Temperature 37.5 C Temperature Source Oral Pulse Rate Pulse Rate from Sp O2 Sensor Respiratory Rate Respiratory Effort / Characteristics Respiratory Depth Respiratory Patter n Blood Pressure 120/73 Blood Pressure Hui n 96 Pulse Oximetry 87 L Oxygen Delivery Me thod Room Air Oxygen Flow Rate Sepsis Recent Feve r Within 48 Hours Sepsis New/Unexpla ined Change in Men doc Status Sepsis Action Take n by Nursing Oxygen Flow Rate - Titration 2 Pulse Oximetry Pos t Tiitration 92 12/03/24 17:00 12/03/24 17:06 12/03/24 17:12 Temperature Temperature Source Pulse Rate 85 Pulse Rate from Sp O2 Sensor 86 Respiratory Rate 28 H Respiratory Effort / Characteristics Respiratory Depth Respiratory Patter n Blood Pressure Blood Pressure Hui n Pulse Oximetry 94 94 Oxygen Delivery Me thod Nebulizer Room Air Oxygen Flow Rate Sepsis Recent Feve r Within 48 Hours Sepsis New/Unexpla ined Change in Men doc Status Sepsis Action Take n by Nursing Oxygen Flow Rate - Titration Pulse Oximetry Pos t Tiitration 94 12/03/24 17:45 12/03/24 18:00 12/03/24 18:09 Temperature Temperature Source Pulse Rate 80 84 Pulse Rate from Sp O2 Sensor 80 84 Respiratory Rate 16 27 H Respiratory Effort / Characteristics Respiratory Depth Respiratory Patter n Blood Pressure 131/74 112/82 Blood Pressure Hui n 93 103 Pulse Oximetry 95 94 Oxygen Delivery Me thod Oxygen Flow Rate Sepsis Recent Feve r Within 48 Hours Sepsis New/Unexpla ined Change in Men doc Status Sepsis Action Take n by Nursing Oxygen Flow Rate - Titration Pulse Oximetry Pos t Tiitration 12/03/24 18:34 12/03/24 19:00 12/03/24 19:30 Temperature Temperature Source Pulse Rate 85 84 Pulse Rate from Sp O2 Sensor 84 Respiratory Rate 17 24 Respiratory Effort / Characteristics Respiratory Depth Respiratory Patter n Blood Pressure 130/78 Blood Pressure Hui n 83 Pulse Oximetry 92 98 91 Oxygen Delivery Me thod Nasal Cannula Nebulizer Nasal Cannula Oxygen Flow Rate 3 8 2 Sepsis Recent Feve r Within 48 Hours Sepsis New/Unexpla ined Change in Men doc Status Sepsis Action Take n by Nursing Oxygen Flow Rate - Titration Pulse Oximetry Pos t Tiitration Physical Exam: Physical Exam HENT: Exam performed. - Head: Normocephalic and atraumatic. EYES: Conjunctivae and EOM are normal. Right eye exhibits no discharge. Left eye exhibits no discharge. No scleral icterus. NECK: Normal range of motion. Neck supple. No JVD present. CV: Normal rate, regular rhythm, normal heart sounds and intact distal pulses. There is no peripheral edema. Palpable radial pulses bue. PULM/CHEST: Diffuse expiratory wheezes bilaterally. ABD: The abdomen is soft. There is no tenderness. NEURO: Motor and sensation grossly intact. SKIN: Skin is warm and dry. He is not diaphoretic. PSYCH: normal mood and affect. Behavior is normal. Judgment and thought content normal. Course Course 162: The patient was evaluated in room A10. A complete history and physical exam was performed Cardiac monitoring: An order was placed for continuous cardiac monitoring. The monitor shows a rate of 90 with sinus rhythm interpreted by me 1700: Patient became hypoxic on room air. Supplemental oxygen applied via nasal cannula. 1835: Vital signs stable on supplemental oxygen via nasal cannula. Labs are unremarkable. Chest x-ray is unremarkable. Patient still having diffuse wheezing. Repeat DuoNebs ordered for the patient. Patient most likely has underlying COPD given his long history of smoking. Patient will be admitted to the hospitalist team. Administered Medications Atorvastatin Calcium (Atorvastatin 40 Mg Tab) 80 mg PO PM ORION Stop: 01/02/25 21:49 Last Admin: 12/03/24 23:03 Dose: 80 mg Documented By: TIM Enoxaparin Sodium (Enoxaparin Inj 40 Mg/0.4 Ml Syr) 40 mg SQ Q24H ORION Stop: 01/02/25 19:59 Last Admin: 12/03/24 23:04 Dose: 40 mg Documented By: TIM Famotidine (Famotidine 40 Mg Tablet) 40 mg PO PM ORION Stop: 01/02/25 21:49 Last Admin: 12/03/24 23:03 Dose: 40 mg Documented By: TIM Guaifenesin (Guaifenesin 600 Mg Tabcr) 1,200 mg PO BID ORION Stop: 01/02/25 21:29 Last Admin: 12/03/24 23:03 Dose: 1,200 mg Documented By: TIM Methylprednisolone 40 mg/ (Syringe) 0.64 mls @ 1.5 mls/min IV Q12H ORION Stop: 01/02/25 21:59 Last Admin: 12/03/24 23:03 Dose: 1.5 mls/min Documented By: TIM Ranolazine (Ranolazine 500 Mg Er Tab) 1,000 mg PO BID ORION Stop: 01/02/25 21:49 Last Admin: 12/03/24 23:03 Dose: 1,000 mg Documented By: TIM Discontinued Medications Albuterol (Albut/Ipratrop 3mg/0.5mg Neb 3 Ml Vial) 3 ml NEB NOW STA; Protocol Stop: 12/03/24 16:42 Last Admin: 12/03/24 16:49 Dose: 3 ml Documented By: AUBREY Albuterol (Albut/Ipratrop 3mg/0.5mg Neb 3 Ml Vial) 3 ml NEB NOW STA; Protocol Stop: 12/03/24 18:30 Last Admin: 12/03/24 18:35 Dose: 3 ml Documented By: AUBREY Albuterol (Albut/Ipratrop 3mg/0.5mg Neb 3 Ml Vial) 3 ml NEB NOW STA; Protocol Stop: 12/03/24 18:31 Last Admin: 12/03/24 18:35 Dose: 3 ml Documented By: AUBREY Aspirin (Aspirin Chew 324 Mg) 324 mg PO NOW STA Stop: 12/03/24 16:39 Last Admin: 12/03/24 16:49 Dose: Not Given Documented By: AUBREY Azithromycin (Azithromycin 250 Mg Tab) 500 mg PO NOW ONE Stop: 12/03/24 18:30 Last Admin: 12/03/24 18:35 Dose: 500 mg Documented By: AUBREY Prednisone (Prednisone 50 Mg Tab) 50 mg PO NOW STA Stop: 12/03/24 16:42 Last Admin: 12/03/24 16:49 Dose: 50 mg Documented By: AUBREY Medical Decision Making Laboratory Data Attestation: I reviewed the patient's lab results. 12/03/24 16:36 12/03/24 16:36 Lab Results 12/03/24 Range/Units 16:36 WBC 9.15 (4.8-10.8) K/ul RBC 4.14 L (4.70-6.10) M/uL Hgb 13.2 L (14.0-18.0) g/dl Hct 36.7 L (42.0-52.0) % MCV 88.6 (80.0-100.0) fL MCH 31.9 (25.0-34.0) pg MCHC 36.0 (32.0-36.0) g/dL RDW Std Deviation 39.4 (36.4-46.3) fL RDW Coeff of Thomas 12.4 (11.5-14.5) % Plt Count 147 (130-400) K/uL MPV 11.1 (9.4-12.4) fL Immature Gran % (Auto) 0.2 % Neut % (Auto) 89.1 % Lymph % (Auto) 3.0 % [place] % (Auto) 6.8 % Eos % (Auto) 0.7 % Baso % (Auto) 0.2 % Neut # (Auto) 8.16 H (1.40-6.50) K/uL Lymph # (Auto) 0.27 L (1.20-3.40) K/uL [place] # (Auto) 0.62 H (0.11-0.59) K/uL Eos # (Auto) 0.06 (0.00-0.50) K/uL Baso # (Auto) 0.02 (0.00-0.20) K/uL Immature Gran # (Auto) 0.02 (0.01-0.20) K/uL PT 11.1 (9.0-12.0) Seconds INR 1.0 (0.9-1.1) APTT 27 (21-31) Seconds PTT Ratio 1.0 VBG pH 7.43 H (7.36-7.41) VBG pCO2 40 (38-50) mmHg VBG pO2 34 mmHg VBG HCO3 27 mmol/L VBG O2 Saturation 63.1 % VBG Base Excess 2.0 mEq/L Sodium 134 L (136-145) mmol/L Potassium 3.9 (3.5-5.1) mmol/L Chloride 101 (98-107) mmol/L Carbon Dioxide 26 (21-32) mmol/L Anion Gap 7 (3-11) BUN 21 (6-23) mg/dl Creatinine 1.14 (0.6-1.4) mg/dl Est Cr Clr Drug Dosing 84.9 ml/min eGFR 75.95 BUN/Creatinine Ratio 18.4 (10-20) Glucose 147 H (70-99(Fasting)) mg/dl Calcium 9.2 (8.6-10.3) mg/dl Troponin I High Sens 3.5 (0-20) pg/ml Lipase 23 (11-82) U/L SARS-CoV-2 (PCR) NEGATIVE (Negative) Influenza Type A (PCR) Negative (Neg) Influenza Type B (PCR) Negative (Neg) RSV (RT-PCR) Negative (Neg) Imaging Data Attestation: I personally reviewed and interpreted this imaging study as follows: My Impression: Chest x-ray negative. Airway clear. No pneumothorax. No consolidation. No cardiomegaly or cephalization.. No free air under the diaphragm. No fractures of the skeletal structures. Radiologist's Impression: Chest X-Ray 12/03/24 16:39 Clinical History: Cough and congestion Technique: PA and lateral views of the chest were obtained Findings: There are no confluent pulmonary infiltrates. The heart size is within normal limits. No pleural effusion or pneumothorax is seen. There is left lung base atelectasis No fracture is noted. No foreign body is seen Impression: Left lung base atelectasis Electronically signed by Gurdeep Joy 12-03-2024 6:12 PM ECG Data Attestation: I personally reviewed and interpreted this ECG as follows: Interpretation: Sinus rhythm with a rate of 92. MO QRS and QTc intervals are within normal limits. No ST elevation or ST depression [facility] Narrative 1629: The patient was evaluated in room A10. A complete history and physical exam was performed Cardiac monitoring: An order was placed for continuous cardiac monitoring. The monitor shows a rate of 90 with sinus rhythm interpreted by tx 1700: Patient became hypoxic on room air. Supplemental oxygen applied via nasal cannula. 1835: Vital signs stable on supplemental oxygen via nasal cannula. Labs are unremarkable. Chest x-ray is unremarkable. Patient still having diffuse wheezing. Repeat DuoNebs ordered for the patient. Patient most likely has underlying COPD given his long history of smoking. Patient will be admitted to the hospitalist team. Impression & Plan Hypoxia, Diffuse wheezing Critical Care Time Critical Care Time: Yes Total Critical Care Time: 55 I have personally spent greater than 55 minutes of critical care time in the direct management of this patient. This includes bedside care, interpretation of diagnostic studies, and testing, discussion with consultants, patient, and family members, and other required patient management activities. This 55 minutes is in excess of all separately billable procedures. Discharge Plan Visit Data Chief Complaint: Illness Stated Complaint: COUGH, ILLNESS ED Provider: Rich Gaming Discharge Problem: Hypoxia, Diffuse wheezing Patient Disposition: Admitted As Inpatient Condition: Serious Discharge Instructions Interventions: ED Discharge Assessment Last Done: 12/03/24 21:50
--- NOTE | 2024-12-03 23:41 | Billing Data ---
Date of Service December 03, 2024 Coding Level of Care Code 94439 INT INP/OBS CARE
[2024-12-04] MEDS: ALBUT/IPRATROP 3MG/0.5MG NEB 3 ML VIAL INH SCH (01:53)
[2024-12-04 07:57] LABS: Hematocrit (blood only) 36.7 % (42.0-52.0); Hemoglobin 12.7 g/dl (14.0-18.0); Mean Corpuscular Hemoglobin 30.8 pg (25.0-34.0); Mean Corpuscular Volume 89.1 fL (80.0-100.0); Platelet Count 135 K/uL (130-400); RDW Standard Deviation 39.4 fL (36.4-46.3); Red Blood Count 4.12 M/uL (4.70-6.10); White Blood Count 7.85 K/ul (4.8-10.8)
[2024-12-04 08:14] LABS: Anion Gap 6.0 (3-11); Blood Urea Nitrogen 18.0 mg/dl (6-23); Calcium 9.0 mg/dl (8.6-10.3); Carbon Dioxide 26.0 mmol/L (21-32); Chloride 105.0 mmol/L (98-107); Creatinine Clr Calc Pharmacy 106.9 ml/min; Glucose 139.0 mg/dl (70-99(Fasting)); Potassium 3.7 mmol/L (3.5-5.1); Sodium 137.0 mmol/L (136-145)
[2024-12-04 08:18] LABS: Immature Granulocytes # (auto) 0.05 K/uL (0.01-0.20); Immature Granulocytes % (auto) 0.6 %
[2024-12-04] MEDS: ASPIRIN 81 MG ECTAB PO SCH (08:29)
[2024-12-04] MEDS: ACETAMINOPHEN 325 MG TAB PO PRN (08:29)
[2024-12-04] MEDS: CLOPIDOGREL BISULFATE 75 MG TAB PO SCH (08:30)
[2024-12-04] MEDS: SERTRALINE HCL 50 MG TABLET PO SCH (08:31)
[2024-12-04] MEDS: METOPROLOL SUCC 50MG EXT REL TAB PO SCH (08:38)
[2024-12-04] MEDS: UMECLIDINIUM/VILANTEROL 62.5/25MCG 7 PUFFS/INHALER INH SCH (08:40)
[2024-12-04] MEDS: FLUTICASONE FUROATE 100MCG 14 PUFFS/INHALER INH SCH (08:40)
[2024-12-04 08:44] LABS: Hemoglobin A1C 5.3 % (4.5-5.6)
[2024-12-04] MEDS: INSULIN ASPART PER UNIT CHARGE SC SCH (09:49)
--- NOTE | 2024-12-04 10:49 | Electrocardiogram Report ---
Test Reason : Blood Pressure : */* mmHG Vent. Rate : 92 BPM Atrial Rate : 92 BPM P-R Int : 132 ms QRS Dur : 82 ms QT Int : 358 ms P-R-T Axes : 25 -3 10 degrees QTcB Int : 442 ms Normal sinus rhythm Normal ECG When compared with ECG of 28-Nov-2019 12:09, Vent. rate has increased by 31 bpm Confirmed by Patrick Olivas ([id number]) on 12/04/2024 10:48:32 AM Referred By: REFERRED SELF Confirmed By: Patrick Olivas
[2024-12-04 10:58] LABS: Chlamydia pneumoniae PCR Not Detected (NotDetected); Coronavirus 229E PCR Not Detected (NotDetected); Coronavirus CoV-2 (COVID19)PCR Not Detected (NotDetected); Coronavirus HKU1 PCR Not Detected (NotDetected); Coronavirus NL63 PCR Not Detected (NotDetected); Coronavirus OC43PCR Not Detected (NotDetected); Human Metapneumovirus PCR Not Detected (NotDetected); Parainfluenza Virus 1 PCR Not Detected (NotDetected); Parainfluenza Virus 2 PCR Not Detected (NotDetected); Parainfluenza Virus 3 PCR Not Detected (NotDetected); Parainfluenza Virus 4 PCR Not Detected (NotDetected); Respiratory Syncytial VirusPCR Not Detected (NotDetected); Rhinovirus/Enterovirus PCR DETECTED (NotDetected)
--- NOTE | 2024-12-04 12:59 | Hospitalist Progress Note ---
Date of Service December 04, 2024 Assessment & Plan (1) COPD with acute exacerbation: (2) Acute bronchitis due to Rhinovirus: (3) Respiratory failure with hypoxia: Plan Mr. lCarke is a 54 y.o. M with PMHx of asthma, CAD s/p coronary artery stent placement, HLD, T2DM, HTN, ex-smoker, who presents due to SOB, cough, and CP. Found to have COPD acute exacerbation and rhino/enterovirus bronchitis. CXR with left lung base atelectasis but not likely pneumonia. Requiring 3L NC at the time of admission #COPD Exacerbation/acute respiratory failure with hypoxia/rhinovirus with bronchitis- SpO2 high 80s in urgent care and had a fever to 102. Requiring 3L NC O2 and now weaned to 1L NC O2. Improving but still significant cough and wheezing. He received 3 DuoNeb tx, oral Prednisone 50mg, Azithromycin 500mg in ED. I ordered a BioFire on 12/04 which was positive for rhino/enterovirus - continue Azithromycin 500mg x 3-day course through 12/05 -Continue scheduled DuoNebs every 6 hours - Add Hycodan cough syrup for cough and muscular pain - continue home Trelegy - Continue Mucinex - Continue IV Solumedrol 40 q12 and eventually convert to p.o. prednisone - Add isolation precautions - Continue supplemental O2 and wean off as tolerated keep pulse ox greater than 89%-May need a two-step walk test prior to discharge #HTN-no acute issues, BPs are controlled to low normal and he reports some lightheadedness at home occasionally - Hold home lisinopril and continue metoprolol #[id number] here only 5.3%. No acute issues with hyperglycemia but is on steroids and this could become an issue. BSG's are ordered but not done yet- will check with nursing -Holding home GLP-1 -Continue NovoLog SSI -BSG's, diabetic diet #CAD s/p stent placement-no acute issues, troponin negative, no chest pain - continue home medications ASA 81mg, clopidogrel, metoprolol, Ranolazine - Holding home lisinopril due to soft blood pressures #HLD - continue home medication atorvastatin 80mg #Depression-no acute issues - Continue home sertraline #GERD-no acute issues - Continue home famotidine VTE Prophylaxis: Lovenox Disposition-continued stay but can downgrade off telemetry, likely stable for discharge in 1 to 2 days. Will need a two-step walk test prior to discharge Admission and Anticipated Discharge Date Admission Date: December 03, 2024 Subjective Patient still coughing a lot and has pain in the upper abdominal muscles especially on the left from coughing. Overall feeling better and weaned down to 1 L nasal cannula. Telemetry with normal sinus rhythm with rates in the 60s to 80s. Physical Exam Constitutional: WD/WN, vitals as above Respiratory: normal respiratory effort and + cough Auscultation: + wheezes (Diffuse expiratory wheezes); no crackles and no rhonchi Cardiovascular: RRR, no murmur, no edema Gastrointestinal (Abdomen): normal bowel sounds, soft, nontender, no hepatosplenomegaly (Except positive TTP LUQ muscular pain) Musculoskeletal: Extremities: + extremities abnormal to inspection (Left leg with bony deformity, scars) Psychiatric: A+Ox3, euthymic affect Results & Data Results & Data Vital Signs (Past 12 Hours) Vital Signs Temp Pulse Pulse Pulse Resp BP Pulse Ox 12/04/24 11:26 36.5 C 84 20 110/66 95 12/04/24 08:48 12/04/24 08:02 36.7 C 88 20 108/62 94 12/04/24 07:06 82 16 92 12/04/24 05:42 78 12/04/24 03:25 36.8 C 85 16 119/66 91 12/04/24 01:54 88 18 90 12/04/24 01:28 36.7 C 82 16 132/78 94 12/04/24 01:12 12/04/24 01:12 36.7 C 82 16 132/78 94 12/04/24 01:11 81 O2 Del Method O2 Flow Rate 12/04/24 11:26 Nasal Cannula 1 12/04/24 08:48 Nasal Cannula 1 12/04/24 08:02 Nasal Cannula 1 12/04/24 07:06 Nasal Cannula 1.5 12/04/24 05:42 12/04/24 03:25 Nasal Cannula 2 12/04/24 01:54 Nasal Cannula 2 12/04/24 01:28 Nasal Cannula 2 12/04/24 01:12 Nasal Cannula 2 12/04/24 01:12 Nasal Cannula 2 12/04/24 01:11 Laboratory Results CBC, BMP, bio fire reviewed PG Care Time/CCT Total # of Minutes Spent Total Time Spent with Patient: Total time spent is greater than 50% in coordination of care (as documented) at patient's floor/unit and/or counseling patient: Coding Level of Care Code 55726 SUB INP/OBS CARE 3/50MIN Diagnoses COPD with acute exacerbation J44.1 Acute bronchitis due to Rhinovirus J20.6 Respiratory failure with hypoxia J96.91
[2024-12-04] MEDS: AZITHROMYCIN 500 MG/255 ML BAG IV SCH (18:21)
[2024-12-05 12:04] LABS: Anion Gap 8.0 (3-11); Calcium 9.1 mg/dl (8.6-10.3); Carbon Dioxide 24.0 mmol/L (21-32); Chloride 104.0 mmol/L (98-107); Potassium 3.7 mmol/L (3.5-5.1); Sodium 136.0 mmol/L (136-145)
--- NOTE | 2024-12-05 12:08 | Hospitalist Progress Note ---
Date of Service December 05, 2024 Assessment & Plan (1) COPD with acute exacerbation: (2) Acute bronchitis due to Rhinovirus: (3) Respiratory failure with hypoxia: Plan Mr. Clarke is a 54 y.o. M with PMHx of asthma, CAD s/p coronary artery stent placement, HLD, T2DM, HTN, ex-smoker, who presents due to SOB, cough, and CP. Found to have COPD acute exacerbation and rhino/enterovirus bronchitis. CXR with left lung base atelectasis but not likely pneumonia. Requiring 3L NC at the time of admission #COPD Exacerbation/acute respiratory failure with hypoxia/rhinovirus with bronchitis- Suspect acute hypoxic respiratory failure due to viral exacerbation of underlying COPD/asthma overlap. He has been weaned to 2 L. Clinically progressing but still with cough and wheezing Steroids twice daily continued Entero-/rhinovirus positive Azithromycin course complete Continue DuoNebs Continue home Trelegy Does have some chronic lower extremity swelling although this is not changed and he is not tachycardic. Low suspicion overall for PE. He does not have inspiratory/pleuritic pain. Reviewed progression 12/05. Plan to give 1 more day of IV steroids and attempt to wean oxygen back to his baseline requirement. If he continues to have an o xygen requirement then we will obtain two-step and plan for discharge home with outpatient wean. Low suspicion for VTE/PE given his lack of tachycardia however he does have some left lower extremity swelling and notes that his shortness of breath seem to come on very suddenly. Will obtain D-dimer #HTN -no acute issues, BPs are controlled to low normal and he reports some lightheadedness at home occasionally - Lisinopril/metoprolol continued GLP-1 use for weight loss Patient denies history of type 2 diabetes He is on GLP-1 for weight loss which has been held Sliding scale only has been continued while on steroids #CAD s/p stent placement -no acute issues, troponin negative, no chest pain - continue home medications ASA 81mg, clopidogrel, metoprolol, Ranolazine - Lisinopril resumed #HLD - continue home medication atorvastatin 80mg #Depression-no acute issues - Continue home sertraline #GERD-no acute issues - Continue home famotidine VTE Prophylaxis: Lovenox Disposition Two-step ordered. Anticipate discharge 12/06 Admission and Anticipated Discharge Date Admission Date: December 03, 2024 Subjective Progressing well. Feels improved compared to admission though not yet back at baseline. Does not normally need oxygen, remains on 2 L of oxygen. He does not have dyspnea at rest while on oxygen and is not tachycardic. He does have some pain in his left lower ribs when coughing. Prefers not to go home with oxygen if possible. Physical Exam Physical Exam: General: A&Ox3. NAD. Cooperative. HEENT: Atraumatic, normocephalic. Vision and hearing grossly intact Pulm: Scattered slight end expiratory wheezes, no rales/rhonchi symmetrical chest rise. No increase in work of breathing. No respiratory distress. Cardiac: RRR, -mrg. Radial pulses intact and symmetrical. Abdominal: Nontender, nondistended, soft. BS present. Extremities: Left lower extremity with some focal swelling and well-healed scar from past injury, per patient no acute swelling or change in the lower extremity. No calf tenderness Results & Data Results & Data Vital Signs (Past 12 Hours) Vital Signs Temp Pulse Resp BP Pulse Ox O2 Del Method O2 Flow Rate 12/05/24 07:26 36.6 C 78 18 121/71 95 Nasal Cannula 2 12/05/24 07:09 82 16 95 Nasal Cannula 2 12/05/24 02:28 89 19 91 Nasal Cannula 2 PG Care Time/CCT Total # of Minutes Spent Total Time Spent with Patient: Total time spent is greater than 50% in coordination of care (as documented) at patient's floor/unit and/or counseling patient: Coding Level of Care Code 75939 SUB INP/OBS CARE 3/50MIN Diagnoses COPD with acute exacerbation J44.1 Acute bronchitis due to Rhinovirus J20.6 Respiratory failure with hypoxia J96.91
[2024-12-05 12:10] LABS: Blood Urea Nitrogen 28.0 mg/dl (6-23); Creatinine Clr Calc Pharmacy 93.8 ml/min; Glucose 120.0 mg/dl (70-99(Fasting))
[2024-12-05 15:05] VITALS: BP 123/72; PULSE 79; RESP 16; TEMP 98.2; O2SAT 90
--- NOTE | 2024-12-05 15:30 | Discharge Summary ---
Discharge Summary Date of Service December 05, 2024 Principal Dx & Hospital Course #1 = Principal Diagnosis (1) COPD with acute exacerbation: (2) Acute bronchitis due to Rhinovirus: (3) Respiratory failure with hypoxia: Plan Mr. Clarke is a 54 y.o. M with PMHx of asthma, CAD s/p coronary artery stent placement, HLD, T2DM, HTN, ex-smoker, who presents due to SOB, cough, and CP. Found to have COPD acute exacerbation and rhino/enterovirus bronchitis. CXR with left lung base atelectasis but not likely pneumonia. Requiring 3L NC at the time of admission. Subsequently weaned to room air To do as outpatient: 1. Complete prednisone taper, 40 mg daily and decrease by 10 mg every 3 days 2. Follow-up with PCP #COPD Exacerbation/acute respiratory failure with hypoxia/rhinovirus with bronchitis- Suspect acute hypoxic respiratory failure due to viral exacerbation of underlying COPD/asthma overlap. Entero-/rhinovirus positive Azithromycin course completed during admission Continue DuoNebs Continue home Walter Does have some chronic lower extremity swelling although this is not changed and he is not tachycardic. Low suspicion overall for PE. He does not have inspiratory/pleuritic pain. 12/05 was still requiring oxygen and plan for watch for more day, fortunately patient progressed well with incentive spirometer and morning steroids. On 2 step trial he was able to ambulate and maintain oxygenation greater than 90% on room air. He strongly preferred discharge home which was reasonable at that time. He was discharged to complete a steroid taper and follow-up with PCP. #HTN -no acute issues, BPs are controlled to low normal and he reports some lightheadedness at home occasionally - Lisinopril/metoprolol continued GLP-1 use for weight loss Patient denies history of type 2 diabetes He is on GLP-1 for weight loss which has been held Sliding scale only has been continued while on steroids - Resume home medications on discharge #CAD s/p stent placement -no acute issues, troponin negative, no chest pain - continue home medications ASA 81mg, clopidogrel, metoprolol, Ranolazine - Lisinopril resumed #HLD - continue home medication atorvastatin 80mg #Depression-no acute issues - Continue home sertraline #GERD-no acute issues - Continue home famotidine VTE Prophylaxis: Lovenox Disposition Two-step ordered. Anticipate discharge 12/06 Admission HPI Per Admitting Provider Mr. Clarke is a 54 y.o. M with PMHx of asthma, CAD s/p coronary artery stent placement, HLD, T2DM, HTN, ex-smoker, who presents due to SOB, cough, and CP. 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 Patient also reports new-onset SOB with exertion that started yesterday morning. Reports he felt dizzy and lightheaded at this time. He took 2 puffs of his Albuterol and 2 puffs of Trelegy which did not seem to help. Around evening time yesterday, he developed generalized body aches as well as midline, localized chest pressure. Patient visited urgent care today and reports 102 fever, SpO2 high 80s on room air, and was told to come to ED. During his time in ED, he has been given 3 Duo Neb treatments, oral Prednisone 50mg, and Azithromycin 500mg which he states has provided significant relief. He is currently on 3L NC. At baseline, patient reports cough attacks and waking up in middle of night due to cough few times a week, however has never been hospitalized due to his symptoms. He uses his Trelegy and Albuterol a few times a week, specifically when he is outside and exerting himself more than usual. Denies use of oxygen at home. Today, patient state she still has lingering SOB, cough, and SOB but it has improved considerably since this morning. Regular BMs. Denies urinary symptoms. Denies N/V, AP, sore throat. Of note, he is an ex-smoker 2ppd from age 17 to 43, but quit 11 years ago. Discharge Exam General: A&Ox3. NAD. Cooperative. HEENT: Atraumatic, normocephalic. Vision and hearing grossly intact Pulm: Scattered trace end expiratory wheezes which clear on deep breathing. Symmetrical chest rise. No increase in work of breathing. No respiratory distress. Cardiac: RRR, -mrg. Radial pulses intact and symmetrical. Abdominal: Nontender, nondistended, soft. BS present. Discharge Plan Discharge Items Patient Disposition: Home - Self-Care Reason For Visit: SOB, CP, COUGH Discharge Diagnosis: Viral URI with a COPD/asthma overlap exacerbation Condition on Discharge: Good Activity: Resume your previous activity Non-emergency contact: Primary Care Provider Call non-emergency contact if: you have any medication questions, your symptoms worsen and your pain is not controlled Follow-up/Referrals: Latisha Garcia MD [Primary Care Provider] - Diet: Regular Addtl Attending Provider Instructions: You were seen in the hospital for low oxygen levels. You were found to be rhino/enterovirus positive. You were able to be weaned off of room observation and were breathing comfortably on room air at time of discharge. You have been prescribed a prednisone taper as noted. Please take prednisone 40 mg by mouth daily starting 12/06. Decrease this dose by 10 mg every 3 days. If you develop any new or worsening symptoms including fever, chills, sweats, chest pain, chest pressure, difficulty breathing, uncontrolled nausea/vomiting, rash, wheezing, passing out or nearly passing out, bleeding, black/bloody bowel movements, or other new or concerning symptoms please call your primary care physician, or call 911 for re-evaluation in the emergency department if you are very concerned. Pending Studies at Discharge: No Stand-Alone Forms: My [facility], Smoking Cessation Medications and DC Order Prescriptions: New prednisone 20 mg tablet See Taper PO DAILY Qty: 15 0RF Taper: Taper, Blank 40 mg DAILY for 3 Days 30 mg DAILY for 3 Days 20 mg DAILY for 3 Days 10 mg DAILY for 3 Days Rx Instructions: 40mg daily starting 12/06. Decrease by 10mg every 3 days. Continued metoprolol succinate 100 mg tablet extended release 24 hr 150 mg PO DAILY Qty: 135 3RF Rx Instructions: Take 1 and 1/2 tablets by mouth every day nitroglycerin [Nitrostat] 0.4 mg tablet, sublingual 0.4 mg Sublingual UD PRN (Reason: Chest Pain) Qty: 25 3RF Rx Instructions: NEEDED FOR CHEST PAIN : 1 TAB UNDER THE TONGUE EVERY 5 MINUTES UP TO 3 DOSES then call 911 ranolazine 1,000 mg tablet extended release 12 hr 1,000 mg PO BID Qty: 180 3RF clopidogrel 75 mg tablet 75 mg PO DAILY Qty: 90 3RF atorvastatin 80 mg tablet 80 mg PO PM Qty: 90 3RF famotidine 40 mg tablet 40 mg PO PM Qty: 30 5RF albuterol sulfate 90 mcg/actuation HFA aerosol inhaler 2 inh inhalation Q6H PRN (Reason: shortness of breath or wheezing) Qty: 8.5 0RF Mounjaro 10 mg/0.5 mL pen injector 10 mg subcut WK Qty: 2 5RF aspirin 81 mg Tablet,Delayed Release (Dr/Ec) 81 mg PO DAILY lisinopril 10 mg tablet 10 mg PO QAM Rx Instructions: TAKE ONE TABLET BY MOUTH IN THE MORNING sertraline 50 mg tablet 50 mg PO DAILY Rx Instructions: TAKE ONE TABLET BY MOUTH EVERY DAY Walter Ellipta 100-62.5-25 mcg blister with device 1 inh inhalation DAILY Rx Instructions: INHALE ONE PUFF BY MOUTH EVERY 24 HOURS Discharge Orders: Discharge Order (Routine); Ordered 12/05/24 Ordered By: Gurjit Malin Admission Data Admit Date/Time: 12/03/24 19:48 Attending Provider: Gurjit Malin Admit Provider: Carmita Lee Primary Care Provider: Latisha Garcia Other Providers: Esvin Harvey Hospital Stay Data Consultations 12/03/24 18:35 ED Decision to Admit Stat Discharge Instructions Given to Patient (Per Discharging Provider) You were seen in the hospital for low oxygen levels. You were found to be rhino/enterovirus positive. You were able to be weaned off of room observation and were breathing comfortably on room air at time of discharge. You have been prescribed a prednisone taper as noted. Please take prednisone 40 mg by mouth daily starting 16. Decrease this dose by 10 mg every 3 days. If you develop any new or worsening symptoms including fever, chills, sweats, chest pain, chest pressure, difficulty breathing, uncontrolled nausea/vomiting, rash, wheezing, passing out or nearly passing out, bleeding, black/bloody bowel movements, or other new or concerning symptoms please call your primary care physician, or call 911 for re-evaluation in the emergency department if you are very concerned. Total Time Total Time Spent Total Time Spent (In Minutes): Time spend day of discharge 50 minutes including direct patient care, documentation, review of labs and images, and coordination of care. Coding Level of Care Code 21817 INP/OBS DISCH >30 MIN Diagnoses COPD with acute exacerbation J44.1 Acute bronchitis due to Rhinovirus J20.6 Respiratory failure with hypoxia J96.91
== END 2024-12-05 16:46 | disposition home or self-care (01) | DRG 190 ==
LOC: ED 16:23 → EDINP 19:48 → SUATTDRO 19:48 → 2N 21:50 → 3W 12-04 15:43